=== PATIENT | male | born 1955 | race Caucasian/White ===

== ENCOUNTER 2017-06-03 21:08 | Emergency (ER) | payer OTHER ==
[~2017-06-03 21:08] MED LIST: BLOOD PRESSURE MED; HYDR-3533 PO; NAPR500 PO; NITR.3 SL
[2017-06-03 21:10] VITALS: BP 144/77; PULSE 69; RESP 16; TEMP 98.6; O2SAT 96
[2017-06-03] MEDS ORDERED: NITR1SUB2 SL (22:45)
[2017-06-03] MEDS ORDERED: METO1TAB42 PO (22:45)
[2017-06-03] MEDS ORDERED: ISOS10TA3 PO (22:45)
[2017-06-03] MEDS ORDERED: BACIOIN6 RIGHT EYE (22:51)
--- NOTE | 2017-06-03 22:53 | PD ---
HPI Chief Complaint: Eye Problems/Injury Time Seen by Provider: 22:27 Travel History International Travel<30 days: No Contact w/Intl Traveler<30days: No Traveled to known affect area: No History of Present Illness HPI PATIENT STATES THAT HE ACCIDENTALLY SPLASHED HIS RIGHT EYE WITH POTASSIUM HYDROXIDE "LYE SOAP" AND THAT HE HAS DONE THIS MULTIPLE TIMES AND JUST NEEDS AN ANTIBIOTIC....PATIENT STATES TAHT HE IRRIGATED EYE SAME DAY FOR ABOUT 30MIN, HE COMES IN TODAY BECAUSE HE DEVELOPED RT EYE PAIN AND REDNESS. DENIES ANY DISCHARGE, STATES HE'S ABLE TO SEE THROUGH RIGHT EYE WELL AND DOESN'T WANT TO WAIT FOR AN EYE DOCTOR TO COME TO ER...SIGNIFICANT OTHER AT BEDSIDE. PFSH Past Medical History Hx Anticoagulant Therapy: Yes (ASA) Arthritis: No Asthma: No Autoimmune Disease: No Blood Disorders: No Heart Rhythm Problems: Yes Cancer: No Cardiac Catheterization: Yes Cardiovascular Problems: Yes (CAD; AK WITH STENTS ) High Cholesterol: No Chemotherapy: No Chest Pain: Yes Congestive Heart Failure: No COPD: No Cerebrovascular Accident: No Diabetes: No Diminished Hearing: No Endocrine: No GERD: No Glaucoma: No Genitourinary: No Headaches: No Hepatitis: No Hiatal Hernia: Yes (IT HEALED ITSELF) Hypertension: No Immune Disorder: No Kidney Stones: No Musculoskeletal: No Neurologic: No Psychiatric: No Respiratory: Yes (PLEURISY) Myocardial Infarction: Yes (SEVERAL PER PATIENT) Radiation Therapy: No Renal Failure: No Seizures: No Sickle Cell Disease: No Sleep Apnea: No Thyroid Disease: No Ulcer: No Past Surgical History Abdominal Surgery: No AICD: No Body Medical Devices: CARDIAC STENTS Cardiac Surgery: Yes (STENTS) Coronary Stent: Yes (X7) Ear Surgery: No Endocrine Surgery: No Eye Surgery: No Genitourinary Surgery: No Gynecologic Surgery: No Joint Replacement: No Oral Surgery: No Pacemaker: No Thoracic Surgery: No Other Surgery: Yes Social History Alcohol Use: No Tobacco Use: No Substance Use: No Allergies-Medications (Allergen,Severity, Reaction): Coded Allergies: sulfamethoxazole (Unverified Allergy, Mild, SKIN BLISTERS, 02/11/17) trimethoprim (Unverified Allergy, Mild, SKIN BLISTERS, 02/11/17) Reported Meds & Prescriptions Reported Meds & Active Scripts Active Lortab 5 mg/325 mg (Hydrocodone/Acetaminophen 5 mg/325 mg) 1 Tab 1 Tab PO Q4H PRN Naprosyn (Naproxen) 500 Mg Tab 500 Mg PO BID Reported [Blood Pressure Med] Nitrostat (Nitroglycerin) 0.3 Mg Subl 0.3 Mg SL PRN FOR CHEST PAIN Review of Systems Except as stated in HPI: all other systems reviewed are Neg General / Constitutional: No: Fever Eyes: Positive: Redness HENT: No: Headaches Cardiovascular: No: Chest Pain or Discomfort Respiratory: No: Shortness of Breath Gastrointestinal: No: Abdominal Pain Genitourinary: No: Dysuria Musculoskeletal: No: Pain Skin: No Rash Neurologic: No: Weakness Psychiatric: No: Depression Endocrine: No: Polydipsia Hematologic/Lymphatic: No: Easy Bruising Physical Exam Narrative GENERAL: SKIN: Warm and dry. HEAD: Atraumatic. Normocephalic. EYES: Pupils equal and round. No scleral icterus. RIGHT CONJUNCTIVA ERYTHEMATOUS , TEARING, CORNEA CLEAR, NO E/O UVEITIS, NO CORNEAL ULCER NOTED, WITH ( PROPARACAINE, UV LAMP AND FLOURESCEIN STRIP) ENT: No nasal bleeding or discharge. Mucous membranes pink and moist. NECK: Trachea midline. No JVD. CARDIOVASCULAR: Regular rate and rhythm. RESPIRATORY: No accessory muscle use. Clear to auscultation. Breath sounds equal bilaterally. GASTROINTESTINAL: Abdomen soft, non-tender, nondistended. Hepatic and splenic margins not palpable. MUSCULOSKELETAL: Extremities without clubbing, cyanosis, or edema. No obvious deformities. NEUROLOGICAL: Awake and alert. No obvious cranial nerve deficits. Motor grossly within normal limits. Five out of 5 muscle strength in the arms and legs. Normal speech. PSYCHIATRIC: Appropriate mood and affect; insight and judgment normal. Data Data Last Documented VS Vital Signs Date Time Temp Pulse Resp B/P (MAP) Pulse Ox O2 Delivery O2 Flow Rate FiO2 06/03/17 21:10 98.6 69 16 144/77 (99) 96 Room Air MDM Medical Decision Making Medical Screen Exam Complete: Yes Emergency Medical Condition: Yes Medical Record Reviewed: Yes Differential Diagnosis UVEITIS V CONJUNCTIVITIS V CORNEAL ULCER Narrative Course PATIENT STATES THAT HE HAD EXPOSURE TO "LYE SOAP" OVER 24 HRS AGO, STATES THAT HE IRRIGATED FOR 30MINUTES ON SAME DAY. PATIENT IS NOT WANTING TO STAY AROUND FOR AN RETENTION REPRESENTATIVE TO EVALUATE HIM, AND REFUSED TO SEE ONE HERE IN ER. PATIENT ADVISED OF POSSIBILITY OF LOSING EYE SIGHT AND PATIENT DID NOT SEEM CONCERNED. Diagnosis Primary Impression: Conjunctival abrasion Qualified Codes: S05.01XA - Injury of conjunctiva and corneal abrasion without foreign body, right eye, initial encounter Referrals: Bernice Eastman MD FOR FURTHER EVALUATION OF YOUR RIGHT EYE EXPOSURE Patient Instructions: Conjunctivitis (ED), General Instructions Scripts Bacitracin Opth Oint (Bacitracin Opth Oint) 500 Unit/Gm Oint 1 APPLIC RIGHT EYE TID for Infection, #1 TUBE 0 Refills Prov: Everton Rasmussen MD 06/03/17 Disposition: 01 DISCHARGE HOME Condition: Stable Everton Rasmussen MD Jun 03, 2017 22:53
[2017-06-03] MEDS ORDERED: SUBO8MIS SL (23:07)
== END 2017-06-03 23:25 | disposition home or self-care (01) ==
LOC: NEPD 21:08
DX: S05.01XA Injury of conjunctiva and corneal abrasion without foreign body, right eye, initial encounter (principal); T54.3X1A Toxic effect of corrosive alkalis and alkali-like substances, accidental (unintentional), initial encounter; I25.10 Atherosclerotic heart disease of native coronary artery without angina pectoris; I25.2 Old myocardial infarction; Z88.2 Allergy status to sulfonamides; Z88.8 Allergy status to other drugs, medicaments and biological substances; X58.XXXA Exposure to other specified factors, initial encounter
CPT/HCPCS: 99283

== ENCOUNTER 2017-11-07 09:32 | Inpatient (IN) | payer OTHER ==
[~2017-11-07] VITALS: Ht 175.3 cm; Wt 77.0 kg
[2017-11-07] VITALS (8 sets, daily range): BP systolic 116–162; BP diastolic 67–81; PULSE 72–85; RESP 18–19; TEMP 97.8–98.6; O2SAT 95–97
[~2017-11-07 09:32] MED LIST changes: +BACIOIN6 RIGHT EYE; -BLOOD PRESSURE MED; -HYDR-3533 PO; +ISOS10TA3 PO; +METO1TAB42 PO; -NAPR500 PO; -NITR.3 SL; +NITR1SUB2 SL; +SUBO8MIS SL
[2017-11-07] MEDS ORDERED: ASPI-183 PO (09:54)
[2017-11-07] MEDS ORDERED: BISACODYL 10 MG SUPP RECTAL PRN (10:30)
[2017-11-07] MEDS ORDERED: SODIUM CHLORIDE 0.9% FLUSH 10 ML FLUSH IV FLUSH PRN (10:30)
[2017-11-07] MEDS ORDERED: ONDANSETRON HCL 4 MG/2 ML VIAL IVP PRN (10:30)
[2017-11-07] MEDS ORDERED: MAGNESIUM HYDROXIDE SUSP 30 ML CUP PO PRN (10:30)
[2017-11-07] MEDS ORDERED: LACTULOSE SYRUP 20 GM/30 ML CUP PO PRN (10:30)
[2017-11-07] MEDS ORDERED: SENNOSIDES 8.6 MG TAB PO PRN (10:30)
[2017-11-07] MEDS ORDERED: ACETAMINOPHEN 325 MG TAB PO PRN (10:30)
[2017-11-07] MEDS ORDERED: NALOXONE HCL 0.4 MG/ML AMP IV PUSH PRN (10:30)
[2017-11-07 10:40] LABS: AUTOMATED NEUTROPHIL # 3.9 TH/MM3 (1.8-7.7); BASOPHIL % 0.2 % (0.0-2.0); EOSINOPHIL # 0.1 TH/MM3 (0-0.4); EOSINOPHIL % 1.2 % (0.0-4.0); HEMATOCRIT 41.6 % (39.0-51.0); HEMOGLOBIN 14.3 GM/DL (13.0-17.0); LYMPH % 19.3 % (9.0-44.0); LYMPHOCYTE # 1.1 TH/MM3 (1.0-4.8); MEAN CELL VOLUME 84.6 FL (80.0-100.0); MEAN CORPUSCULAR HGB CONC 34.3 % (32.0-36.0); MEAN PLATELET VOLUME 8.7 FL (7.0-11.0); MONO % 9.2 % (0.0-8.0); MONOCYTE # 0.5 TH/MM3 (0-0.9); NEUT % 70.1 % (16.0-70.0); PLATELET COUNT 102 TH/MM3 (150-450); RED BLOOD COUNT 4.92 MIL/MM3 (4.50-5.90); RED CELL DISTRIBUTION WIDTH 14.5 % (11.6-17.2); WHITE BLOOD COUNT 5.5 TH/MM3 (4.0-11.0)
--- NOTE | 2017-11-07 10:41 | RADRPT ---
EXAM DATE/TIME: 11/07/2017 10:14 [facility] COMPARISON: No previous studies available for comparison. INDICATIONS : Evaluate for pneumonia, pneumothorax, or communicable disease. Pre-op detached retina. MEDICAL HISTORY : Cardiovascular disease. coronary stents, hiatal hernia, pleurisy. SURGICAL HISTORY : None. ENCOUNTER: Initial ACUITY: 1 day PAIN SCORE: 0/10 LOCATION: Bilateral chest FINDINGS: A single view of the chest demonstrates the lungs to be symmetrically aerated without evidence of mas s, infiltrate or effusion. Mild basilar atelectasis. The cardiomediastinal contours are unremarkable. Osseous structures are intact. CONCLUSION: 1. Mild basilar atelectasis. Tortuous aorta. No effusion or pneumothorax. Deyvi Brown MD on November 07, 2017 at 10:38 Board Certified Radiologist. This report was verified electronically.
[2017-11-07 10:56] LABS: PROTHROMBIN TIME - PATIENT 10.1 SEC (9.8-11.6)
[2017-11-07 10:58] LABS: ALBUMIN 3.8 GM/DL (3.4-5.0); AST (GOT) 13 U/L (15-37); BLOOD UREA NITROGEN 18 MG/DL (7-18); CALCIUM 8.7 MG/DL (8.5-10.1); CHLORIDE 105 MEQ/L (98-107); CREATININE 0.89 MG/DL (0.60-1.30); GLOMERULAR FILTRATION RATE 87 ML/MIN (>89); GLUCOSE,RANDOM 127 MG/DL (74-106); SODIUM (NA) 139 MEQ/L (136-145)
[2017-11-07 10:59] LABS: ALT (GPT) 20 U/L (12-78)
[2017-11-07] MEDS ORDERED: PILL SPLITTER OTHER PRN (11:00)
[2017-11-07 11:01] LABS: ALKALINE PHOSPHATASE 72 U/L (45-117); TOTAL BILIRUBIN ADULT 0.4 MG/DL (0.2-1.0); TOTAL PROTEIN 6.7 GM/DL (6.4-8.2)
--- NOTE | 2017-11-07 11:50 | PD ---
HPI Chief Complaint: Eye Problems/Injury Time Seen by Provider: 10:04 Travel History International Travel<30 days: No Contact w/Intl Traveler<30days: No Traveled to known affect area: No History of Present Illness HPI 62-year-old male with a history of coronary artery disease, pleurisy, who presents here at the request of his retinal surgeon for admission and cardiology clearance. The patient has a detached left retina that happened 3-4 weeks ago. The patient needs emergent surgery to repair his retina. When the retinal surgeon, Dr. Parsons, spoke with the anesthesiologist, they requested he be medically cleared by cardiology given his extensive cardiac history. The patient does have stable angina and takes daily nitroglycerin for this. He denies any chest pain, chest pressure. Patient has complete loss of vision in his left eye. There are no other complaints the time of examination. PFSH Past Medical History Hx Anticoagulant Therapy: Yes (ASA) Arthritis: No Asthma: No Autoimmune Disease: No Blood Disorders: No Heart Rhythm Problems: Yes Cancer: No Cardiac Catheterization: Yes Cardiovascular Problems: Yes High Cholesterol: No Chemotherapy: No Chest Pain: Yes Congestive Heart Failure: No COPD: No Cerebrovascular Accident: No Diabetes: No Diminished Hearing: No Endocrine: No GERD: No Glaucoma: No Genitourinary: No Headaches: No Hepatitis: No Hiatal Hernia: Yes (IT HEALED ITSELF) Hypertension: No Immune Disorder: No Kidney Stones: No Musculoskeletal: No Neurologic: No Psychiatric: No Respiratory: Yes (PLEURSY) Immunizations Current: Yes Myocardial Infarction: Yes (SEVERAL PER PATIENT) Radiation Therapy: No Renal Failure: No Seizures: No Sickle Cell Disease: No Sleep Apnea: No Thyroid Disease: No Ulcer: No ?: Not Past Surgical History Abdominal Surgery: No AICD: No Body Medical Devices: CARDIAC STENTS Cardiac Surgery: Yes (STENTS) Coronary Stent: Yes (X7) Ear Surgery: No Endocrine Surgery: No Eye Surgery: No Genitourinary Surgery: No Gynecologic Surgery: No Joint Replacement: No Oral Surgery: No Pacemaker: No Thoracic Surgery: No Other Surgery: Yes Social History Alcohol Use: No Tobacco Use: No Substance Use: No Allergies-Medications (Allergen,Severity, Reaction): Coded Allergies: sulfamethoxazole (Unverified Allergy, Mild, SKIN BLISTERS, 02/11/17) trimethoprim (Unverified Allergy, Mild, SKIN BLISTERS, 02/11/17) Uncoded Allergies: STEROIDS (Adverse Reaction, Unknown, 06/03/17) Reported Meds & Prescriptions Reported Meds & Active Scripts Active Reported Aspirin 325 Mg Tab 325 Mg PO DAILY Suboxone Sublingual Film (Buprenorphine-Naloxone Sublingual Film) 8-2 Mg Film 1 Film SL Unique ID number required: Nitroglycerin SL (Nitroglycerin) 0.3 Mg Subl Mg SL DIRECTED PRN ONE TABLET UNDER THE TONGUE NEEDED FOR CHEST PAIN, MAY REPEAT EVERY FIVE MINUTES FOR A TOTAL OF 3 DOSES OR CALL 911 IF NO RELIEF Metoprolol Succinate ER 24 HR (Metoprolol Succinate) 25 Mg Tab 12.5 Mg PO DAILY Isosorbide Mononitrate 10 Mg Tab Mg PO BID Take 2 doses 7 hours apart. 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 SKIN: Focused skin assessment warm/dry. HEAD: Atraumatic. Normocephalic. EYES: Left pupil dilated. Right pupil reactive to light. Patient has had the pupil dilated by his eye surgeon.. No scleral icterus. No injection or drainage. ENT: No nasal bleeding or discharge. Mucous membranes pink and moist. NECK: Trachea midline. Supple. CARDIOVASCULAR: Regular rate and rhythm. No murmur appreciated. RESPIRATORY: No accessory muscle use. Clear to auscultation. Breath sounds equal bilaterally. GASTROINTESTINAL: Abdomen soft, non-tender, nondistended. Hepatic and splenic margins not palpable. MUSCULOSKELETAL: No obvious deformities. No clubbing. No cyanosis. No edema. NEUROLOGICAL: Awake and alert. No obvious cranial nerve deficits. Motor grossly within normal limits. Normal speech. PSYCHIATRIC: Appropriate mood and affect; insight and judgment normal. Data Data Last Documented VS Vital Signs Date Time Temp Pulse Resp B/P (MAP) Pulse Ox O2 Delivery O2 Flow Rate FiO2 11/07/17 09:35 98.6 80 18 162/81 (108) 97 Orders Orders Electrocardiogram (11/07/17 10:05) Complete Blood Count With Diff (11/07/17 10:05) Comprehensive Metabolic Panel (11/07/17 10:05) Prothrombin Time / Inr (Pt) (11/07/17 10:05) Act Partial Throm Time (Ptt) (11/07/17 10:05) Chest, Single Ap (11/07/17 10:05) Iv Access Insert/Monitor (11/07/17 10:05) Ecg Monitoring (11/07/17 10:05) Oximetry (11/07/17 10:05) Type And Screen (11/07/17 10:) Admit To Inpatient (11/07/17 ) Vital Signs (Adult) Q4H (11/07/17 10:28) Activity Oob With Assistance (11/07/17 10:28) Contract Administrator / Telemetry .CONTINUOUS (11/07/17 10:28) Intake + Output BRANDO.QSHIFT (11/07/17 10:28) Diet Heart Healthy (11/07/17 Lunch) Sodium Chloride 0.9% Flush (Ns Flush) (11/07/17 10:30) Sodium Chloride 0.9% Flush (Ns Flush) (11/07/17 21:00) Acetaminophen (Tylenol) (11/07/17 10:30) Ondansetron Inj (Zofran Inj) (11/07/17 10:30) Comprehensive Metabolic Panel (11/08/17 06:00) Complete Blood Count With Diff (11/08/17 06:00) Resp Oxygen Allen C Titrat 1-4 L (11/07/17 ) Pt Request For Service (11/07/17 10:28) Ot Request For Service (11/07/17 10:28) Case Management Consult (11/07/17 10:28) Enoxaparin Inj (Lovenox Inj) (11/07/17 12:00) Scd Bilateral/Knee High BRANDO.BID (11/07/17 10:28) Servando Bilateral/Knee High BRANDO.QSHIFT (11/07/17 10:28) Naloxone Inj (Narcan Inj) (11/07/17 10:30) Docusate Sodium-Senna (Oriana-Colace) (11/07/17 21:00) Magnesium Hydroxide Liq (Milk Of Magnesi (11/07/17 10:30) Sennosides (Senokot) (11/07/17 10:30) Bisacodyl Supp (Dulcolax Supp) (11/07/17 10:30) Lactulose Liq (Lactulose Liq) (11/07/17 10:30) Inpatient Certification (11/07/17 ) Consult Cardiology (11/07/17 ) Consult Pulmonology (11/07/17 ) Aspirin (Aspirin) (11/08/17 09:00) Metoprolol Succinate Er (Toprol Xl) (11/08/17 09:00) Pill Splitter (Pill Splitter) (11/07/17 11:00) Consult Ophthalmology (11/07/17 ) Admit Order (Ed Use Only) (11/07/17 11:02) Labs Laboratory Tests Test 11/07/17 10:13 White Blood Count 5.5 TH/MM3 Red Blood Count 4.92 MIL/MM3 Hemoglobin 14.3 GM/DL Hematocrit 41.6 % Mean Corpuscular Volume 84.6 FL Mean Corpuscular Hemoglobin 29.0 PG Mean Corpuscular Hemoglobin Concent 34.3 % Red Cell Distribution Width 14.5 % Platelet Count 102 TH/MM3 Mean Platelet Volume 8.7 FL Neutrophils (%) (Auto) 70.1 % Lymphocytes (%) (Auto) 19.3 % Monocytes (%) (Auto) 9.2 % Eosinophils (%) (Auto) 1.2 % Basophils (%) (Auto) 0.2 % Neutrophils # (Auto) 3.9 TH/MM3 Lymphocytes # (Auto) 1.1 TH/MM3 Monocytes # (Auto) 0.5 TH/MM3 Eosinophils # (Auto) 0.1 TH/MM3 Basophils # (Auto) 0.0 TH/MM3 CBC Comment DIFF FINAL Differential Comment Prothrombin Time 10.1 SEC Prothromb Time International Ratio 1.0 RATIO Activated Partial Thromboplast Time 22.9 SEC Blood Urea Nitrogen 18 MG/DL Creatinine 0.89 MG/DL Random Glucose 127 MG/DL Total Protein 6.7 GM/DL Albumin 3.8 GM/DL Calcium Level 8.7 MG/DL Alkaline Phosphatase 72 U/L Aspartate Amino Transf (AST/SGOT) 13 U/L Alanine Aminotransferase (ALT/SGPT) 20 U/L Total Bilirubin 0.4 MG/DL Sodium Level 139 MEQ/L Potassium Level 4.3 MEQ/L Chloride Level 105 MEQ/L Carbon Dioxide Level 27.0 MEQ/L Anion Gap 7 MEQ/L Estimat Glomerular Filtration Rate 87 ML/MIN MDM Medical Decision Making Medical Screen Exam Complete: Yes Emergency Medical Condition: Yes Differential Diagnosis Unstable angina versus stable angina versus left eye retinal detachment. Narrative Course 62-year-old male with a history of coronary artery disease, stable angina, pleurisy, who presents at the request of his eye surgeon for admission and medical clearance by cardiology. The patient needs emergent retinal surgery. The patient is chest pain-free at this time. Preop labs have been ordered. Dr. Salomon Virgen, on-call for cardiology, has come to see the patient and will make recommendations for surgery. The case was discussed with [facility], [facility], who will admit the patient to her service. Diagnosis Primary Impression: Detached retina, left Additional Impressions: Coronary artery disease Stable angina History of pleurisy Admitting Information Admitting Physician Requests: Admit Jordan Dawn MD November 07, 2017 11:50
[2017-11-07] MEDS ORDERED: MORPHINE SULFATE 2 MG/ML SYRINGE SQ PRN (12:00)
[2017-11-07] MEDS: ENOXAPARIN SODIUM 40 MG/0.4 ML SYRINGE SQ SCH (12:00)
--- NOTE | 2017-11-07 12:36 | HHI.HP ---
HPI Service [facility] Primary Care Physician No Primary Care Physician Admission Diagnosis left retinal detachment, cad, pleurysy, Diagnoses: Chief Complaint: Sent by his pitch filler Dr. Parsons Travel History International Travel<30 Days: No Contact w/Intl Traveler <30 Da: No Traveled to Known Affected Are: No History of Present Illness The patient is a 62-year-old male with past medical history of coronary artery disease cardiac cath was 7 stents per patient, history of cardiac arrest in 2010 , pleurisy. Patient presented to the emergency room the request of his ophthalmology Dr. Parsons and also anesthesiologist who recommended admission and cardiology and pulmonology clearance for retinal detachment surgery. Patient has detached left retina that happened 3-4 weeks ago. Patient needs emergent surgery to repair his retina. Patient says he has stable angina and he takes daily nitroglycerin. At this time he does not appear in distress. He is however complaining of brief intermittent left eye pain, does not have any pain at this time. He denies any chest pain or pressure. No lightheadedness, palpitations, shortness of breath, diaphoresis, nausea. He is saturating well on room air. There is no cough. No fever, chills, no nausea or vomiting. Review of Systems Except as stated in HPI: all other systems reviewed are Neg Past Family Social History Past Medical History Coronary artery disease cardiac cath was 7 stents per patient, history of cardiac arrest in 2010, pleurisy Past Surgical History Cardiac catheterization, 7 stents placed Left knee surgery Reported Medications Reported Meds & Active Scripts Active Reported Aspirin 325 Mg Tab 325 Mg PO DAILY Suboxone Sublingual Film (Buprenorphine-Naloxone Sublingual Film) 8-2 Mg Film 1 Film SL Unique ID number required: Nitroglycerin SL (Nitroglycerin) 0.3 Mg Subl Mg SL DIRECTED PRN ONE TABLET UNDER THE TONGUE NEEDED FOR CHEST PAIN, MAY REPEAT EVERY FIVE MINUTES FOR A TOTAL OF 3 DOSES OR CALL 911 IF NO RELIEF Metoprolol Succinate ER 24 HR (Metoprolol Succinate) 25 Mg Tab 12.5 Mg PO DAILY Isosorbide Mononitrate 10 Mg Tab Mg PO BID Take 2 doses 7 hours apart. Allergies: Coded Allergies: sulfamethoxazole (Unverified Allergy, Mild, SKIN BLISTERS, 02/11/17) trimethoprim (Unverified Allergy, Mild, SKIN BLISTERS, 02/11/17) Uncoded Allergies: STEROIDS (Adverse Reaction, Unknown, 06/03/17) Family History His family is healthy lived to the age of 100. His mother has at the age of 90 of cancer. Social History Denies tobacco use or alcohol use. No illicit drug use. Physical Exam Vital Signs Vital Signs Date Time Temp Pulse Resp B/P (MAP) Pulse Ox O2 Delivery O2 Flow Rate FiO2 11/07/17 11:20 97 Room Air 11/07/17 11:18 97 21 11/07/17 09:35 98.6 80 18 162/81 (108) 97 Physical Exam GENERAL: This is a well-nourished, well-developed patient, appears anxious. SKIN: No rashes, ecchymoses or lesions. Cool and dry. HEAD: Atraumatic. Normocephalic. No temporal or scalp tenderness. EYES: Dilated left pupil. Decreased vision left eye. Extraocular motions intact. No scleral icterus. No injection or drainage. ENT: Nose without bleeding, purulent drainage or septal hematoma. Throat without erythema, tonsillar hypertrophy or exudate. Uvula midline. Airway patent. NECK: Trachea midline. No JVD or lymphadenopathy. Supple, nontender, no meningeal signs. CARDIOVASCULAR: Regular rate and rhythm without murmurs, gallops, or rubs. RESPIRATORY: Clear to auscultation. Breath sounds equal bilaterally. No wheezes , rales, or rhonchi. GASTROINTESTINAL: Abdomen soft, non-tender, nondistended. No hepato-splenomegaly , or palpable masses. No guarding. MUSCULOSKELETAL: Extremities without clubbing, cyanosis, or edema. No joint tenderness, effusion, or edema noted. No calf tenderness. Negative Homans sign bilaterally. NEUROLOGICAL: Awake and alert. Cranial nerves II through XII intact. Motor and sensory grossly within normal limits. Five out of 5 muscle strength in all muscle groups. Normal speech. Laboratory Laboratory Tests Test 11/07/17 10:13 White Blood Count 5.5 Red Blood Count 4.92 Hemoglobin 14.3 Hematocrit 41.6 Mean Corpuscular Volume 84.6 Mean Corpuscular Hemoglobin 29.0 Mean Corpuscular Hemoglobin Concent 34.3 Red Cell Distribution Width 14.5 Platelet Count 102 Mean Platelet Volume 8.7 Neutrophils (%) (Auto) 70.1 Lymphocytes (%) (Auto) 19.3 Monocytes (%) (Auto) 9.2 Eosinophils (%) (Auto) 1.2 Basophils (%) (Auto) 0.2 Neutrophils # (Auto) 3.9 Lymphocytes # (Auto) 1.1 Monocytes # (Auto) 0.5 Eosinophils # (Auto) 0.1 Basophils # (Auto) 0.0 CBC Comment DIFF FINAL Differential Comment Prothrombin Time 10.1 Prothromb Time International Ratio 1.0 Activated Partial Thromboplast Time 22.9 Blood Urea Nitrogen 18 Creatinine 0.89 Random Glucose 127 Total Protein 6.7 Albumin 3.8 Calcium Level 8.7 Alkaline Phosphatase 72 Aspartate Amino Transf (AST/SGOT) 13 Alanine Aminotransferase (ALT/SGPT) 20 Total Bilirubin 0.4 Sodium Level 139 Potassium Level 4.3 Chloride Level 105 Carbon Dioxide Level 27.0 Anion Gap 7 Estimat Glomerular Filtration Rate 87 Result Diagram: 11/07/17 1013 11/07/17 1013 Imaging Last Impressions Chest X-Ray 11/07/17 1005 Signed Impressions: Service Date/Time: Tuesday, November 07, 2017 10:14 - CONCLUSION: 1. Mild basilar atelectasis. Tortuous aorta. No effusion or pneumothorax. MD Rayshawn Mcclellani VTE Risk Assessment Caprini VTE Risk Assessment: Mod/High Risk (score >= 2) Caprini Risk Assessment Model Point Value = 1 Point Value = 2 Point Value = 3 Point Value = 5 Age 41-60 Minor surgery BMI > 25 kg/m2 Swollen legs Varicose veins or History of unexplained or recurrent spontaneous Oral contraceptives or hormone replacement Sepsis (< 1 month) Serious lung disease, including pneumonia (< 1 month) Abnormal pulmonary function Acute myocardial infarction Congestive heart failure (< 1 month) History of inflammatory bowel disease Medical patient at bed rest Age 61-74 Arthroscopic surgery Major open surgery (> 45 min) Laparoscopic surgery (> 45 min) Malignancy Confined to bed (> 72 hours) Immobilizing plaster cast Central venous access Age >= 75 History of VTE Family history of VTE Factor V Leiden Prothrombin [id number] Lupus anticoagulant Anticardiolipin antibodies Elevated serum homocysteine Heparin-induced thrombocytopenia Other congenital or acquired thrombophilia Stroke (< 1 month) Elective arthroplasty Hip, pelvis, or leg fracture Acute spinal cord injury (< 1 month) Prophylaxis Regimen Total Risk Factor Score Risk Level Prophylaxis Regimen 0-1 Low Early ambulation 2 Moderate Order ONE of the following: *Sequential Compression Device (SCD) *Heparin 5000 units SQ BID 3-4 Higher Order ONE of the following medications: *Heparin 5000 units SQ TID *Enoxaparin/Lovenox 40 mg SQ daily (WT < 150 kg, CrCl > 30 mL/min) *Enoxaparin/Lovenox 30 mg SQ daily (WT < 150 kg, CrCl > 10-29 mL/min) *Enoxaparin/Lovenox 30 mg SQ BID (WT < 150 kg, CrCl > 30 mL/min) AND/OR *Sequential Compression Device (SCD) 5 or more Highest Order ONE of the following medications: *Heparin 5000 units SQ TID (Preferred with Epidurals) *Enoxaparin/Lovenox 40 mg SQ daily (WT < 150 kg, CrCl > 30 mL/min) *Enoxaparin/Lovenox 30 mg SQ daily (WT < 150 kg, CrCl > 10-29 mL/min) *Enoxaparin/Lovenox 30 mg SQ BID (WT < 150 kg, CrCl > 30 mL/min) AND *Sequential Compression Device (SCD) Assessment and Plan Assessment and Plan 62-year-old male with a history of coronary artery disease and 7 stents placed, history of cardiac arrest 2010, angina, pleurisy was sent by his ophthalmology Dr. Parsons for admission and clearance by cardiology and pulmonology. patient has detached left retina 3-4 weeks ago and needs emergent surgery to repair his retina. Detached left retina Consult his ophthalmology Dr. Parsons. The patient needs emergent surgery to repair his retina. Patient with history of coronary artery disease was 7 stents placed, history of cardiac arrest 2010, angina or pleurisy. Dr. Parsons his ophthalmology Dr. the anesthesiologist requests pulmonology consult and also cardiology consult for clearance Restart home medications as appropriate Patient was seen by Dr. Virgen cardiology. Discussed with Dr. Virgen the patient is cleared from a cardiac standpoint for surgery. Pulmonology evaluation and clearance are pending Morphine 2 mg IV as needed for pain Patient also reports being anxious. Start Ativan 0.5 mg every 8 hours p.o. as needed for anxiety. DVT prophylaxis SCDs/teds/Lovenox Discussed Condition With Patient, family at bedside, Dr. Dawn ED physician, Dr. Virgen cardiology Physician Certification 2 Midnight Certification Type: Admission for Inpatient Services Order for Inpatient Services The services are ordered in accordance with Medicare regulations or non- Medicare payer requirements, as applicable. In the case of services not specified as inpatient-only, they are appropriately provided as inpatient services in accordance with the 2-midnight benchmark. Estimated LOS (days): 3 days is the estimated time the patient will need to remain in the hospital, assuming treatment plan goals are met and no additional complications. Post-Hospital Plan: Home Niurka Martin MD November 07, 2017 12:36
--- NOTE | 2017-11-07 12:50 | MB ---
cc: Salomon Virgen MD DATE: 11/07/2017 REASON FOR CONSULTATION: For preoperative clearance. HISTORY OF PRESENT ILLNESS: Ralph Guajardo is a 62-year-old man with known coronary artery disease who has a severe left eye retinal detachment needing surgery. The patient is known to have coronary artery disease. He has a history of multiple revascularization procedures. In the computer, I found records of 07/05/2010 where he had a catheterization we had a patent proximal LAD stent, the circumflex artery had severe disease, the right coronary artery had severe disease and was stented proximally and in the mid-segment with 3.0 x 18 mm Vision stents for each. The second catheterization procedure I found was 01/16/2011. The LAD was okay. By that time, the circumflex has been stented, but there was an in-stent restenosis treated with a 3.0 balloon. The proximal right coronary artery had a stenosis with clot that was treated with a 3.5 mm balloon. The best I can tell, this was his last catheterization procedure. He has chronic angina which he has had for 2 years. He states he only gets it if he does not take his medications. It sounds like he is on isosorbide mononitrate 10 mg b.i.d. That is his only antianginal medicine. He has metoprolol, but does not take it. He is on chronic narcotics for what he says is pleurisy which he has had for 20 years. He takes an aspirin daily. The pleurisy he has had for 20 years, nobody has been able to fix it. He manages despite taking pain medications. It is a knife-type jabbing pain in the left lower quadrant when he takes a deep breath. His angina sounds more typical; it is a substernal chest pressure. He only gets it if he gets upset or over-exerts himself, particularly if he does not take his medications. ALLERGIES: SULFA AND TRIMETHOPRIM. PAST MEDICAL HISTORY: Includes pleurisy, coronary artery disease. He has hyperlipidemia. He has also had chronic left bundle branch block. SOCIAL HISTORY: He smoked only for 1 year when he was 19. Denies substance abuse. Denies alcohol use. FAMILY HISTORY: Negative for heart disease. PHYSICAL EXAMINATION: GENERAL: Well-developed, well-nourished white male, in no acute distress. VITAL SIGNS: Charted. HEENT: Sclerae anicteric. No xanthelasma. NECK: No JVD. No bruits. CHEST: Clear to auscultation and percussion. No use of accessory muscles. HEART: Normal S1, S2. Regular rate and rhythm. Grade 2/6 systolic ejection murmur. No S3. ABDOMEN: Soft, nontender. EXTREMITIES: No clubbing, cyanosis or edema. Pulses are intact. EKG: Sinus rhythm, left bundle branch block. LABORATORY DATA: Hematocrit is 41.6, creatinine 0.92. Chest x-ray shows basilar atelectasis. ASSESSMENT AND PLAN: A 62-year-old man with chronic stable angina for 2 years, known coronary artery disease, has an acute severe problem with his left eye. In view of the fact that the angina is stable, not unstable, surgical risk is elevated, but not prohibitive. I am initiating Metoprolol 25 b.i.d. and an inch of nitro paste q.6 hours. I am clearing him for surgery. The anesthesiologist needs to use the best technique they can to minimize ischemia. I have ordered a 2-D echo to assess LV function. MD GABRIEL Monge/DEEPIT , 12:09 PM , 12:49 PM
[2017-11-07] MEDS: METOPROLOL TARTRATE 25 MG TAB PO SCH ×2 (13:00→19:45)
[2017-11-07] MEDS: NITROGLYCERIN 2% OINT 1 GM PACKET TOPICAL SCH ×2 (13:01→19:42)
[2017-11-07] MEDS: DOCUSATE SODIUM 50 MG/SENNA 8.6 MG TAB PO SCH (19:47)
[2017-11-07] MEDS: ACETAMINOPHEN/HYDROcodone 325 MG/10 MG TAB PO PRN (20:27)
[2017-11-07] MEDS: SODIUM CHLORIDE 0.9% FLUSH 10 ML FLUSH IV FLUSH SCH (23:19)
[2017-11-08] VITALS (7 sets, daily range): BP systolic 123–148; BP diastolic 70–85; PULSE 56–76; RESP 16–18; TEMP 97.3–98.2; O2SAT 95–99
[2017-11-08] MEDS: NITROGLYCERIN 2% OINT 1 GM PACKET TOPICAL SCH ×3 (04:15→21:21)
[2017-11-08] MEDS: ACETAMINOPHEN/HYDROcodone 325 MG/10 MG TAB PO PRN ×3 (04:15→21:23)
[2017-11-08 04:48] LABS: AUTOMATED NEUTROPHIL # 3.3 TH/MM3 (1.8-7.7); BASOPHIL % 0.3 % (0.0-2.0); EOSINOPHIL # 0.1 TH/MM3 (0-0.4); EOSINOPHIL % 2.1 % (0.0-4.0); HEMATOCRIT 41.9 % (39.0-51.0); HEMOGLOBIN 14.6 GM/DL (13.0-17.0); LYMPH % 28.8 % (9.0-44.0); LYMPHOCYTE # 1.7 TH/MM3 (1.0-4.8); MEAN CELL VOLUME 83.7 FL (80.0-100.0); MEAN CORPUSCULAR HGB CONC 34.7 % (32.0-36.0); MEAN PLATELET VOLUME 8.9 FL (7.0-11.0); MONO % 11.6 % (0.0-8.0); MONOCYTE # 0.7 TH/MM3 (0-0.9); NEUT % 57.2 % (16.0-70.0); PLATELET COUNT 113 TH/MM3 (150-450); RED BLOOD COUNT 5.01 MIL/MM3 (4.50-5.90); RED CELL DISTRIBUTION WIDTH 14.5 % (11.6-17.2); WHITE BLOOD COUNT 5.8 TH/MM3 (4.0-11.0)
[2017-11-08 05:10] LABS: ALBUMIN 3.6 GM/DL (3.4-5.0); AST (GOT) 13 U/L (15-37); BICARBONATE 27.3 MEQ/L (21.0-32.0); BLOOD UREA NITROGEN 14 MG/DL (7-18); CALCIUM 8.4 MG/DL (8.5-10.1); CHLORIDE 107 MEQ/L (98-107); CREATININE 0.81 MG/DL (0.60-1.30); GLOMERULAR FILTRATION RATE 97 ML/MIN (>89); GLUCOSE,RANDOM 87 MG/DL (74-106); SODIUM (NA) 143 MEQ/L (136-145)
[2017-11-08 05:15] LABS: ALKALINE PHOSPHATASE 70 U/L (45-117); ALT (GPT) 19 U/L (12-78); TOTAL BILIRUBIN ADULT 0.3 MG/DL (0.2-1.0); TOTAL PROTEIN 6.8 GM/DL (6.4-8.2)
--- NOTE | 2017-11-08 08:17 | EKG ---
Date Performed: 11/07/2017 Time Performed: 10:10:54 PTAGE: 62 years EKG: Sinus rhythm MARKED LEFT AXIS DEVIATION LEFT BUNDLE BRANCH BLOCK ABNORMAL ECG PREVIOUS TRACING : 12/29/2015 23.26 DOCTOR: Sheri Burdick Interpretating Date/Time 11/08/2017 08:15:49
[2017-11-08] MEDS ORDERED: METOPROLOL SUCCINATE 25 MG EXTENDED RELEASE TAB PO SCH (09:00)
[2017-11-08] MEDS: METOPROLOL TARTRATE 25 MG TAB PO SCH ×2 (09:57→21:21)
[2017-11-08] MEDS: ASPIRIN 325 MG TAB PO SCH (09:57)
[2017-11-08] MEDS: DOCUSATE SODIUM 50 MG/SENNA 8.6 MG TAB PO SCH ×2 (09:57→21:21)
[2017-11-08] MEDS: SODIUM CHLORIDE 0.9% FLUSH 10 ML FLUSH IV FLUSH SCH ×2 (09:58→21:21)
[2017-11-08] MEDS: LORazepam 0.5 MG TAB PO PRN (10:01)
--- NOTE | 2017-11-08 14:31 | HHI.PR ---
Subjective Remarks awake and alert aseen with fiancee at bedside very active lifestyle no chornic 02 use no leg swelling states history of pleurisy in the past after a procedure Objective Vitals Vital Signs Date Time Temp Pulse Resp B/P (MAP) Pulse Ox O2 Delivery O2 Flow Rate FiO2 11/08/17 12:00 97.9 71 18 148/85 (106) 99 11/08/17 10:06 21 11/08/17 08:00 97.3 61 16 138/75 (96) 98 11/08/17 04:00 98.0 65 17 123/77 (92) 97 11/08/17 00:00 98.1 74 18 133/70 (91) 96 11/07/17 23:52 72 11/07/17 20:00 97.8 85 18 143/67 (92) 97 11/07/17 19:52 81 11/07/17 16:00 97.8 83 19 123/69 (87) 95 I/O 11/07/17 11/07/17 11/07/17 11/08/17 11/08/17 11/08/17 07:00 15:00 23:00 07:00 15:00 23:00 Intake Total 480 ml 240 ml Balance 480 ml 240 ml Intake Oral 480 ml 240 ml # Voids 1 2 Result Diagram: 11/08/17 0316 11/08/17 0316 Imaging Last Impressions Chest X-Ray 11/07/17 1005 Signed Impressions: Service Date/Time: Tuesday, November 07, 2017 10:14 - CONCLUSION: 1. Mild basilar atelectasis. Tortuous aorta. No effusion or pneumothorax. Deyvi Brown MD Objective Remarks awake and alert no acute distress left eye- eye patch in place no bruit lungs- no rales regular rhythm,a bdomen soft, good bowel sounds extrmeities no edema neuro exam- non focal A/P Assessment and Plan 62-year-old male with a history of coronary artery disease and 7 stents placed, history of cardiac arrest 2010, angina, pleurisy was sent by his ophthalmology Dr. Parsons for admission and clearance by cardiology and pulmonology. patient has detached left retina 3-4 weeks ago and needs emergent surgery to repair his retina. Detached left retina Consult his ophthalmology Dr. Parsons. The patient needs emergent surgery to repair his retina. Patient with history of coronary artery disease was 7 stents placed, history of cardiac arrest 2010, angina or pleurisy. 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 Ativan 0.5 mg every 8 hours p.o. as needed for anxiety. DVT prophylaxis SCDs/teds/Lovenox d/w him and Ruben Au MD November 08, 2017 14:31
--- NOTE | 2017-11-08 15:12 | PD.CARD.PN ---
Subjective Subjective Remarks Nitropaste has helped but he can tell when he reaches end of 8 hour interval. Objective Medications Current Medications Medications (Trade) Dose Ordered Sig/Zelalem Route Start Time Stop Time Status Last Admin (NS Flush) 2 ml UNSCH PRN IV FLUSH 11/07/17 10:30 (NS Flush) 2 ml BID IV FLUSH 11/07/17 21:00 11/08/17 09:58 (Tylenol) 650 mg Q4H PRN PO 11/07/17 10:30 (Zofran Inj) 4 mg Q6H PRN IVP 11/07/17 10:30 (Lovenox Inj) 40 mg Q24H SQ 11/07/17 12:00 (Narcan Inj) 0.4 mg UNSCH PRN IV PUSH 11/07/17 10:30 (Oriana-Colace) 1 tab BID PO 11/07/17 21:00 11/08/17 09:57 (Milk Of Magnesia Liq) 30 ml Q12H PRN PO 11/07/17 10:30 (Senokot) 17.2 mg Q12H PRN PO 11/07/17 10:30 (Dulcolax Supp) 10 mg DAILY PRN RECTAL 11/07/17 10:30 (Lactulose Liq) 30 ml DAILY PRN PO 11/07/17 10:30 (Aspirin) 325 mg DAILY PO 11/08/17 09:00 11/08/17 09:57 (Pill Splitter) 1 ea UNSCH PRN OTHER 11/07/17 11:00 (Ativan) 0.5 mg Q8H PRN PO 11/07/17 12:00 11/08/17 10:01 (Lopressor) 25 mg Q12HR PO 11/07/17 13:00 11/08/17 09:57 (Nitroglycerin 2% Oint) 1 inch Q8HR TOPICAL 11/07/17 14:00 11/08/17 04:15 (Morphine Inj) 2 mg Q4H PRN IV 11/07/17 20:30 ([place]intstone 5-325 Mg) 1 tab Q4H PRN PO 11/07/17 19:45 ([place]stone 10-325 Mg) 1 tab Q4H PRN PO 11/07/17 19:45 11/08/17 10:01 Vital Signs / I&O Vital Signs Date Time Temp Pulse Resp B/P (MAP) Pulse Ox O2 Delivery O2 Flow Rate FiO2 11/08/17 12:00 97.9 71 18 148/85 (106) 99 11/08/17 10:06 21 11/08/17 08:00 97.3 61 16 138/75 (96) 98 11/08/17 04:00 98.0 65 17 123/77 (92) 97 11/08/17 00:00 98.1 74 18 133/70 (91) 96 11/07/17 23:52 72 11/07/17 20:00 97.8 85 18 143/67 (92) 97 11/07/17 19:52 81 11/07/17 16:00 97.8 83 19 123/69 (87) 95 I/O 11/07/17 11/07/17 11/07/17 11/08/17 11/08/17 11/08/17 07:00 15:00 23:00 07:00 15:00 23:00 Intake Total 480 ml 240 ml Balance 480 ml 240 ml Intake Oral 480 ml 240 ml # Voids 1 2 Physical Exam Alert Chest Clear CV S1S2 RRR no edema Laboratory Laboratory Tests Test 11/08/17 03:16 White Blood Count 5.8 TH/MM3 Red Blood Count 5.01 MIL/MM3 Hemoglobin 14.6 GM/DL Hematocrit 41.9 % Mean Corpuscular Volume 83.7 FL Mean Corpuscular Hemoglobin 29.0 PG Mean Corpuscular Hemoglobin Concent 34.7 % Red Cell Distribution Width 14.5 % Platelet Count 113 TH/MM3 Mean Platelet Volume 8.9 FL Neutrophils (%) (Auto) 57.2 % Lymphocytes (%) (Auto) 28.8 % Monocytes (%) (Auto) 11.6 % Eosinophils (%) (Auto) 2.1 % Basophils (%) (Auto) 0.3 % Neutrophils # (Auto) 3.3 TH/MM3 Lymphocytes # (Auto) 1.7 TH/MM3 Monocytes # (Auto) 0.7 TH/MM3 Eosinophils # (Auto) 0.1 TH/MM3 Basophils # (Auto) 0.0 TH/MM3 CBC Comment DIFF FINAL Differential Comment Blood Urea Nitrogen 14 MG/DL Creatinine 0.81 MG/DL Random Glucose 87 MG/DL Total Protein 6.8 GM/DL Albumin 3.6 GM/DL Calcium Level 8.4 MG/DL Alkaline Phosphatase 70 U/L Aspartate Amino Transf (AST/SGOT) 13 U/L Alanine Aminotransferase (ALT/SGPT) 19 U/L Total Bilirubin 0.3 MG/DL Sodium Level 143 MEQ/L Potassium Level 3.6 MEQ/L Chloride Level 107 MEQ/L Carbon Dioxide Level 27.3 MEQ/L Anion Gap 9 MEQ/L Estimat Glomerular Filtration Rate 97 ML/MIN Imaging Last 48 hours Impressions Chest X-Ray 11/07/17 1005 Signed Impressions: Service Date/Time: Tuesday, November 07, 2017 10:14 - CONCLUSION: 1. Mild basilar atelectasis. Tortuous aorta. No effusion or pneumothorax. Deyvi Brown MD Assessment and Plan Problem List: (1) History of pleurisy ICD Codes: Z87.09 - Personal history of other diseases of the respiratory system Status: Acute Plan: Chronic (2) Coronary artery disease ICD Codes: I25.10 - Atherosclerotic heart disease of [place] coronary artery without angina pectoris Status: Acute (3) Stable angina ICD Codes: I20.8 - Other forms of angina pectoris Status: Acute Plan: Nitropaste changed to q6h. After surgery he might need cath/ revasc. Salomon Virgen MD November 08, 2017 15:12
[2017-11-08] MEDS: ENOXAPARIN SODIUM 40 MG/0.4 ML SYRINGE SQ SCH (15:33)
--- NOTE | 2017-11-08 17:48 | ECHRPT ---
Indication: Atherosclerotic heart disease of [place] coronary artery with unstable angina pectoris CONCLUSIONS The left ventricular systolic function is normal with an estimated ejection fraction of 55%. Wall thickness is measured at the upper limits of normal. Normal left ventricular size. There is mild to moderate tricuspid valve regurgitation. The estimated pulmonary arterial pressure is 43 mmHg. BP: 123 / 77 HR: 65 Rhythm: MEASUREMENTS (Male / Female) Normal Values Technical Quality: 2D ECHO LV Diastolic Diameter PLAX 4.5 cm 4.2 - 5.9 / 3.9 - 5.3 cm LV Systolic Diameter PLAX 3.4 cm IVS Diastolic Thickness 1.2 cm 0.6 - 1.0 / 0.6 - 0.9 cm LVPW Diastolic Thickness 1.2 cm 0.6 - 1.0 / 0.6 - 0.9 cm LV Relative Wall Thickness 0.5 LVOT Diameter 2.3 cm M-MODE Aortic Root Diameter MM 3.3 cm LA Systolic Diameter MM 3.8 cm LA Ao Ratio MM 1.2 AV Cusp Separation MM 2.3 cm DOPPLER AV Peak Velocity 148.0 cm/s AV Peak Gradient 8.8 mmHg LVOT Peak Velocity 116.0 cm/s LVOT Peak Gradient 5.4 mmHg AV Area Cont Eq pk 3.3 cm MR Peak Velocity 297.0 cm/s MR Peak Gradient 35.3 mmHg LV E' Lateral Velocity 6.7 cm/s TR Peak Velocity 288.0 cm/s TR Peak Gradient 33.2 mmHg Right Atrial Pressure 10.0 mmHg Pulmonary Artery Systolic Pressu 43.2 mmHg Right Ventricular Systolic Press 43.2 mmHg PV Peak Velocity 114.0 cm/s PV Peak Gradient 5.2 mmHg FINDINGS LEFT VENTRICLE The left ventricular systolic function is normal with an estimated ejection fraction of 55%. Wall thickness is measured at the upper limits of normal. Normal left ventricular size. RIGHT VENTRICLE Normal right ventricular size and systolic function. LEFT ATRIUM The left atrial size is normal. RIGHT ATRIUM The right atrial size is normal. ATRIAL SEPTUM Normal atrial septal thickness without atrial level shunting by limited color doppler interrogation. AORTA The aortic root and proximal ascending aorta are normal in size on limited imaging. MITRAL VALVE Mild mitral valve regurgitation. AORTIC VALVE Trileaflet aortic valve. No aortic valve stenosis or regurgitation. TRICUSPID VALVE There is mild to moderate tricuspid valve regurgitation. The estimated pulmonary arterial pressure is 43.2 mmHg. PULMONARY VALVE No pulmonary valve regurgitation or stenosis. VESSELS The inferior vena cava is normal in size. PERICARDIUM No pericardial effusion. Nico Hinton MD, FACC (Electronically Signed) Final Date:08 Nov 2017 17:48
[2017-11-09] VITALS (9 sets, daily range): BP systolic 120–166; BP diastolic 60–88; PULSE 60–89; RESP 15–18; TEMP 97.1–98.2; O2SAT 95–98
[2017-11-09] MEDS: NITROGLYCERIN 2% OINT 1 GM PACKET TOPICAL SCH ×3 (06:19→22:24)
[2017-11-09] MEDS: METOPROLOL TARTRATE 25 MG TAB PO SCH ×3 (09:00→22:24)
[2017-11-09] MEDS: ACETAMINOPHEN/HYDROcodone 325 MG/10 MG TAB PO PRN ×3 (09:36→22:27)
[2017-11-09] MEDS: SODIUM CHLORIDE 0.9% FLUSH 10 ML FLUSH IV FLUSH SCH ×2 (09:36→22:24)
[2017-11-09] MEDS: ASPIRIN 325 MG TAB PO SCH (09:36)
[2017-11-09] MEDS: DOCUSATE SODIUM 50 MG/SENNA 8.6 MG TAB PO SCH ×2 (09:36→22:24)
--- NOTE | 2017-11-09 11:49 | MB ---
cc: Job Thurman MD DATE: 11/09/2017 REASON FOR CONSULTATION: Pulmonary clearance. HISTORY OF PRESENT ILLNESS: The patient is a 62-year-old gentleman who is here in the hospital with left retinal detachment. The patient was supposed to have surgery. He does have a history of pleurisy. He denies any shortness of breath or coughing or wheezing. He reported that he does have this pleuritic pain on the left side that comes and goes. It has been happening for the past 14-16 years. He said sometimes it goes away when he takes antibiotics with Bactrim, but sometimes the symptoms stay about 6-7 months. He did have a CAT scan about a couple years ago and he did have a recent chest x-ray. No fevers or chills or coughing or hemoptysis. PAST MEDICAL HISTORY: Reviewed in detail. Positive for significant coronary artery disease. PAST SURGICAL HISTORY: Reviewed. MEDICATIONS: Reviewed in detail. ALLERGIES: Reviewed. REVIEW OF SYSTEMS: Negative except what was mentioned in the HPI. PHYSICAL EXAMINATION: GENERAL: No acute distress. VITAL SIGNS: Shows temperature 97.8, pulse 69, respiratory rate 17, blood pressure 126/65. His sat 98% on room air. HEENT: Atraumatic, normocephalic. NECK: Trachea midline. LUNGS: Clear bilaterally. HEART: S1, S2. ABDOMEN: Soft, nontender. EXTREMITIES: No edema or cyanosis. NEUROLOGIC: Alert, oriented, moves all extremities. His left eye is covered with a patch. IMAGING STUDIES: Chest clear without any significant acute findings, may be possible mild basilar atelectasis. LABORATORY DATA: Labs reviewed in detail. ASSESSMENT AND PLAN: 1. Left retinal detachment. 2. Coronary artery disease. 3. History of pleurisy. Overall, the patient is doing well. I do not see any active pulmonary disease to contraindicate him from surgery. Thus, I will clear him to proceed with surgery from a pulmonary perspective. The patient will need an outpatient followup. Please call me if needed. Job Thurman MD SHEYLA/TL , 11:27 AM , 11:48 AM
[2017-11-09] MEDS: ENOXAPARIN SODIUM 40 MG/0.4 ML SYRINGE SQ SCH (12:00)
--- NOTE | 2017-11-09 12:38 | HHI.PR ---
Subjective Remarks occasional complains of chest discomfort, no diaphoresis left eye patch in place- hoping for surgery soon no neck pain Objective Vitals Vital Signs Date Time Temp Pulse Resp B/P (MAP) Pulse Ox O2 Delivery O2 Flow Rate FiO2 11/09/17 08:00 97.8 69 17 126/65 (85) 98 11/09/17 04:51 97.6 60 18 120/70 (87) 96 11/09/17 04:00 68 11/09/17 01:10 98.2 70 18 132/60 (84) 95 11/09/17 00:00 70 11/08/17 23:07 Room Air 11/08/17 22:23 18 11/08/17 20:00 76 11/08/17 20:00 97.9 74 17 133/73 (93) 97 11/08/17 17:36 99 21 11/08/17 16:00 98.2 64 17 132/85 (101) 95 I/O 11/08/17 11/08/17 11/08/17 11/09/17 11/09/17 11/09/17 07:00 15:00 23:00 07:00 15:00 23:00 Intake Total 240 ml 2 ml 1000 ml 580 ml Balance 240 ml 2 ml 1000 ml 580 ml Intake Oral 240 ml 1000 ml 580 ml IV Total 2 ml # Voids 2 3 3 # Bowel Movements 0 Result Diagram: 11/08/17 0316 11/08/17 0316 Imaging Last Impressions Chest X-Ray 11/07/17 1005 Signed Impressions: Service Date/Time: Tuesday, November 07, 2017 10:14 - CONCLUSION: 1. Mild basilar atelectasis. Tortuous aorta. No effusion or pneumothorax. Deyvi Brown MD Objective Remarks awake and alert no acute distress left eye- eye patch in place no bruit lungs- no rales regular rhythm, abdomen soft, good bowel sounds extremeities no edema neuro exam- non focal A/P Assessment and Plan 62-year-old male with a history of coronary artery disease and 7 stents placed, history of cardiac arrest 2010, angina, pleurisy was sent by his ophthalmology Dr. Parsons for admission and clearance by cardiology and pulmonology. patient has detached left retina 3-4 weeks ago and needs emergent surgery to repair his retina. Detached left retina d/w patient - informed consent Ophthalmology ff Patient with history of coronary artery disease was 7 stents placed, history of cardiac arrest 2010, angina or pleurisy. 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 Ativan 0.5 mg every 8 hours p.o. as needed for anxiety. DVT prophylaxis SCDs/teds/Lovenox d/w Ruben Noyola MD November 09, 2017 12:38
[2017-11-09] MEDS: SODIUM CHLOR 0.9% 1000 ML INJ 1,000 ML IV SCH ×2 (13:17→23:45)
--- NOTE | 2017-11-09 13:17 | PD.CARD.PN ---
Subjective Subjective Remarks Still having intermittent angina despite meds Objective Medications Current Medications Medications (Trade) Dose Ordered Sig/Zelalem Route Start Time Stop Time Status Last Admin (NS Flush) 2 ml UNSCH PRN IV FLUSH 11/07/17 10:30 (NS Flush) 2 ml BID IV FLUSH 11/07/17 21:00 11/09/17 09:36 (Tylenol) 650 mg Q4H PRN PO 11/07/17 10:30 (Zofran Inj) 4 mg Q6H PRN IVP 11/07/17 10:30 (Lovenox Inj) 40 mg Q24H SQ 11/07/17 12:00 11/08/17 15:33 (Narcan Inj) 0.4 mg UNSCH PRN IV PUSH 11/07/17 10:30 (Oriana-Colace) 1 tab BID PO 11/07/17 21:00 11/09/17 09:36 (Milk Of Magnesia Liq) 30 ml Q12H PRN PO 11/07/17 10:30 (Senokot) 17.2 mg Q12H PRN PO 11/07/17 10:30 (Dulcolax Supp) 10 mg DAILY PRN RECTAL 11/07/17 10:30 (Lactulose Liq) 30 ml DAILY PRN PO 11/07/17 10:30 (Aspirin) 325 mg DAILY PO 11/08/17 09:00 11/09/17 09:36 (Pill Splitter) 1 ea UNSCH PRN OTHER 11/07/17 11:00 (Ativan) 0.5 mg Q8H PRN PO 11/07/17 12:00 11/08/17 10:01 (Lopressor) 25 mg Q12HR PO 11/07/17 13:00 11/08/17 21:21 (Nitroglycerin 2% Oint) 1 inch Q8HR TOPICAL 11/07/17 14:00 11/09/17 06:19 (Morphine Inj) 2 mg Q4H PRN IV 11/07/17 20:30 (Cody 5-325 Mg) 1 tab Q4H PRN PO 11/07/17 19:45 (Cody 10-325 Mg) 1 tab Q4H PRN PO 11/07/17 19:45 11/09/17 09:36 Vital Signs / I&O Vital Signs Date Time Temp Pulse Resp B/P (MAP) Pulse Ox O2 Delivery O2 Flow Rate FiO2 11/09/17 08:00 97.8 69 17 126/65 (85) 98 11/09/17 04:51 97.6 60 18 120/70 (87) 96 11/09/17 04:00 68 11/09/17 01:10 98.2 70 18 132/60 (84) 95 11/09/17 00:00 70 11/08/17 23:07 Room Air 11/08/17 22:23 18 11/08/17 20:00 76 11/08/17 20:00 97.9 74 17 133/73 (93) 97 11/08/17 17:36 99 21 11/08/17 16:00 98.2 64 17 132/85 (101) 95 I/O 11/08/17 11/08/17 11/08/17 11/09/17 11/09/17 11/09/17 07:00 15:00 23:00 07:00 15:00 23:00 Intake Total 240 ml 2 ml 1000 ml 580 ml Balance 240 ml 2 ml 1000 ml 580 ml Intake Oral 240 ml 1000 ml 580 ml IV Total 2 ml # Voids 2 3 3 # Bowel Movements 0 Physical Exam GENERAL: Well developed, well nourished. No acute distress. HEENT: Jugular venous pressure is normal. CHEST: Lungs clear to auscultation bilaterally. Unlabored respiratory effort. CARDIAC: Regular rate and rhythm without S3, S4, or murmur. ABDOMEN: Soft, nontender, no hepatosplenomegaly. Bowel sounds present. EXTREMITIES: No clubbing, cyanosis, or edema. Assessment and Plan Problem List: (1) History of pleurisy ICD Codes: Z87.09 - Personal history of other diseases of the respiratory system Status: Acute (2) Coronary artery disease ICD Codes: I25.10 - Atherosclerotic heart disease of [place] coronary artery without angina pectoris Status: Acute (3) Unstable angina pectoris ICD Codes: I20.0 - Unstable angina Plan: Unfortunately, it's now clear that his angina is not stable. Having angina at rest despite meds. I spoke to Dr. Parsons and patient. Plan cath 7: 30AM, probable PCI or CABG. Informed consent obtained. Salomon Virgen MD November 09, 2017 13:17
[2017-11-09] MEDS ORDERED: ASPIRIN 81 MG CHEW TAB PO ONE (13:30)
[2017-11-09] MEDS ORDERED: DIAZEPAM 5 MG TAB PO SCH (13:30)
[2017-11-09] MEDS ORDERED: diphenhydrAMINE HCL 50 MG CAP PO SCH (13:30)
[2017-11-09] MEDS ORDERED: ASPIRIN 325 MG TAB PO SCH (13:30)
[2017-11-10] VITALS (7 sets, daily range): BP systolic 123–145; BP diastolic 72–76; PULSE 61–82; RESP 15–18; TEMP 97.3–98.6; O2SAT 94–98
[2017-11-10] MEDS: NITROGLYCERIN 2% OINT 1 GM PACKET TOPICAL SCH ×3 (05:42→22:27)
[2017-11-10] MEDS: ACETAMINOPHEN/HYDROcodone 325 MG/10 MG TAB PO PRN ×2 (05:47→20:09)
[2017-11-10] MEDS: ASPIRIN 325 MG TAB PO SCH ×2 (06:30→14:23)
[2017-11-10 07:02] LABS: AUTOMATED NEUTROPHIL # 3.8 TH/MM3 (1.8-7.7); BASOPHIL % 0.2 % (0.0-2.0); EOSINOPHIL # 0.1 TH/MM3 (0-0.4); EOSINOPHIL % 2.2 % (0.0-4.0); HEMATOCRIT 43.6 % (39.0-51.0); HEMOGLOBIN 15.3 GM/DL (13.0-17.0); LYMPH % 25.1 % (9.0-44.0); LYMPHOCYTE # 1.5 TH/MM3 (1.0-4.8); MEAN CELL VOLUME 83.6 FL (80.0-100.0); MEAN CORPUSCULAR HEMOGLOBIN 29.3 PG (27.0-34.0); MEAN PLATELET VOLUME 8.8 FL (7.0-11.0); MONO % 10.7 % (0.0-8.0); MONOCYTE # 0.6 TH/MM3 (0-0.9); NEUT % 61.8 % (16.0-70.0); PLATELET COUNT 98 TH/MM3 (150-450); RED BLOOD COUNT 5.22 MIL/MM3 (4.50-5.90); RED CELL DISTRIBUTION WIDTH 14.5 % (11.6-17.2); WHITE BLOOD COUNT 6.1 TH/MM3 (4.0-11.0)
[2017-11-10] MEDS ORDERED: HEPARIN-NS/PF FLUSH BAG 2,000 ML IV FLUSH ONE (07:06)
[2017-11-10] MEDS ORDERED: MIDAZOLAM HCL 2 MG/2 ML VIAL ONE (07:20)
[2017-11-10 07:29] LABS: BICARBONATE 25.6 MEQ/L (21.0-32.0); BLOOD UREA NITROGEN 16 MG/DL (7-18); CALCIUM 8.5 MG/DL (8.5-10.1); CHLORIDE 106 MEQ/L (98-107); GLOMERULAR FILTRATION RATE 98 ML/MIN (>89); GLUCOSE,RANDOM 87 MG/DL (74-106); SODIUM (NA) 141 MEQ/L (136-145)
[2017-11-10 07:33] LABS: TROPONIN I LESS THAN 0.02 NG/ML (0.02-0.05)
[2017-11-10 07:59] LABS: BANDS 2 % (0-6); LYMPHOCYTES 25 % (9-44); MONOCYTES 11 % (0-8); NEUTROPHIL # MANUAL DIFF 3.7 TH/MM3 (1.8-7.7); POLYS (SEG NEUTROPHILS) 58 % (16-70)
--- NOTE | 2017-11-10 08:41 | CATHPROC ---
[facility] HIS Report Study Information Study Number Admission Scheduled Start Study Start [id number] Nov 07 2017 11:04AM 11/10/2017 Nov 10 2017 7:20AM [place] [facility] Cardiac Catheterization Admit Source Facility Department Emergency department [facility] - Marriage Counselor Physician and Clinical Staff Initial Salomon Gutierrez [facility] Program Specialist Onel RN, Rm Recorder Lizeth Parra BSN Scrub Jhon Serrano RCIS(BS) Procedures Performed Procedure Location (Site) Vessel Name Angiogram LV LV Ventricle Coronary Angiograms LCA Left Coronary Coronary Angiograms RCA Right Coronary L Heart Cath Equipment Time Carpenter Rough Description Size Mfg Part Number Used/Scraped TRANSDUCER, TRUWAVE [id number] 07:30 DUNN AKERS * Used W/STOCKCOCK *[id number] *[id number] *[id number] *[id number] PIGTAIL ANG. 145 INFINITI [id number] CATHETER *[id number] 08:26 DAIG/[employer]. [employer] MEDICAL ANGIOSEAL, FR6 VIP FR 6 Used *[id number] 07:30 MEDLINE INDUSTRIES PACK, CCL CUSTOM * Used *[id number] 07:30 MEDLINE PACER PEN, SKIN DUAL W/ RULER * Used *[id number] 07:30 MOD Systems MEDICAL SHEATH, FR6.5 PRELUDE 11CM FR 6.5 038ACT Used *[id number] 08:37 [employer] MEDICAL SHEATH, FR6.5 PRELUDE 11CM FR 6.5 038ACT Used *[id number] 07:30 MOD [employer] MEDICAL WIRE, 3MMJ .035 180CM 180CM Used *[id number] 07:30 NAMIC MANIFOLD, 4 PORT * Used *[id number] 07:30 NYCOMED OMNIPAQUE, 350 MG, 150ML 150ML [id number] Used 07:58 NYCOMED OMNIPAQUE, 350 MG, 50ML 50ML [id number] Used [id number] 07:30 [employer] MED[employer] BLANKET,WARM AIR CCL * Used *[id number] Equipment Model, Serial, Lot Number and Expiration Data Description Model Number Serial Number Lot Number Expiration Date ANGIOSEAL, FR6 VIP [id number] 06-29-2018 History: Current Medications Medication Dosage/Unit Route Frequency Last Date/Time Taken Beta Felipe ASA History: Allergies Allergy Reaction sulfamethoxazole SKIN BLISTERS trimethoprim SKIN BLISTERS STEROIDS History: Risk Factors Family History of Hypertension Dyslipidemia Previous PR Previous Heart Failure Premature CAD No No Yes Yes No Prior Valve Prior PCI Prior PCIDate Prior CABG Surgery No Yes 01/09/2011 No Cerebrovascular Peripheral Artery Chronic Lung On Dialysis Diabetes Disease Disease Disease No No No No No History: Stress Tests Stress or Imaging Studies Performed No History: PR/CV Data Previous Cath Date 01/09/2011 History: Other Current Smoker Method Quit Packs a Day Years Used Pack Years No Cigarettes 44 Years Ago 1 1 1 Labs Hgb (g/dl) Hct (%) WBC (l/cumm) Platelets (thousands) 11.60-17.00 35.00-51.00 4.00-11.00 150.00-450.00 14.6 41.9 5.8 102 Glucose (mg/dl) BUN (mg/dl) Creatinine (mg/dl) BUN:Creatinine (1:x) 74.00-106.00 7.00-18.00 0.50-1.30 10.00-20.00 87 14 0.8 17.5 Na (meq/l) K (meq/l) 136.00-145.00 3.50-5.10 143 3.6 INR (PTT:PT) 0.90-1.10 1 CPK-MB (ng/ML) 0.50-3.60 Not Drawn Medication Medication Total Dose (Bolus/Oral) Medication Total Dosage/Unit 1% XYLOCAINE 20 mL FENTANYL 50 mcg OXYGEN 2 l/min VERSED 2 mg Medications (Bolus/Oral) Medication Time Given Dosage/Unit Administered By Reason VERSED 11/10/2017 7:50:49 AM 2 mg Rm Sykes RN 2 mg VERSED given in lab by Rm Sykes RN in Right Antecubital via Peripheral IV. Ordered by Salomon Virgen. 1% XYLOCAINE 11/10/2017 7:51:35 AM 20 mL Salomon Virgen 20 mL 1% XYLOCAINE given in lab by Salomon Virgen via Subcutaneous. Ordered by Salomon Virgen. FENTANYL 11/10/2017 7:53:16 AM 50 mcg Rm Sykes RN 50 mcg FENTANYL given in lab by Rm Sykes RN via Peripheral IV. Ordered by Salomon Virgen. OXYGEN 11/10/2017 7:59:19 AM 2 l/min Rm Sykes RN 2 l/min OXYGEN given in lab by Rm Sykes RN via Nasal. Ordered by Salomon Virgen. OXYGEN 11/10/2017 8:32:41 AM 0 l/min Rm Sykes RN 0 l/min OXYGEN removed in lab by Rm Sykes RN via Nasal. Ordered by Salomon Virgen. Medication (Drip) Medication Time Given Dosage/Unit Concentration/Unit Diluent (ml) Solution IV Solutions 11/10/2017 7:12:37 AM 50 mL (IV) NaCl .9 Patient arrived on IV Solutions via Peripheral IV. Pump/Drip Flow using NaCl .9. at [facility] Initial Case Assessment Cardiovascular HR Rhythm NIBP Chest Pain 71 sr 148/91 0 Edema Present Skin color Skin None Normal Warm Dry Circulatory - Right Pulses Dorsalis Pedis Femoral 3 3 Scale (0,1,2,3,4,d) Circulatory - Left Pulses Dorsalis Pedis Femoral 3 3 Scale (0,1,2,3,4,d) Circulatory - Lower Extremities Color Lower Right Color Lower Left Normal Normal Neurological State Oriented to time-place- Alert Moves all extremities person Respiration - General Respiration Rate SpO2 (%) (B/min) 12 97 Chronological Log Time Study Chronological Log 7:07:38 Patient arrived via Bed. 7:07:43 Patient Name, D.O.B, / Armband Verified By R.N. 7:07:47 Consent signed by the physician and the patient and verified by the Marriage Counselor staff. 7:10:54 Patient has been NPO for More than 6Hrs. 7:11:18 Skin Breakdown- none per patient 7:12:11 Alessandro Prominences Protected 7:12:15 A # 20 IV was noted in the Antecubital (right). Grade = 0 7:12:25 A # 20 IV was noted in the Forearm (left). Grade = 0 7:12:37 Patient arrived on IV Solutions via Peripheral IV. Pump/Drip Flow using NaCl .9. at [facility] 7:13:00 History and physical on the chart or being dictated. 7:17:24 Verbal Stimulation=2 Physical Stimulation=2 Airway=2 Respiration=2 TOTAL=8. (0=absent, 1=li mited, 2=present) Vitals capture started with the following parameters, Patient=Adult, Interval=5 min, Initial Pr wdujrf=985 mmHg, 7:19:48 Deflation Rate=5 mmHg, Cuff placed on Left Arm 7:20:08 Bilateral groins prepped with 2% chlorhexidine, and draped after a 3 minute waiting time. 7:21:47 MD paged Assessment: Initial Case, HR=71 BPM, Rhythm=sr, TBSL=665/91 mmhg, Chest Pain=0, Edema=None, [place] r=Normal, Skin = Warm, Dry Right Pulses: Marquise Ped=3, Femoral=3 Left Pulses: Marquise Ped=3, Femoral=3 7:23:06 Lower Right Extremities: Color=Normal Lower Left Extremities: Color=Normal Neurological: State=Alert, Ox3, [place] Respiration: Resp=12 B/min, SpO2=97 % 7:23:11 HR=68 bpm, WRVH=293/91 mmhg, SpO2=97.0 %, Resp=10 B/min, Pain=0, Lexi=10, Lezama=2 7:23:37 Pressure channel 1 zeroed. 7:26:02 Reference ECG taken 7:28:10 HR=79 bpm, LJNL=284/93 mmhg, SpO2=97.0 %, Resp=15 B/min, Pain=0, Lexi=10, Lezama=2 7:33:44 HR=72 bpm, PSZC=028/85 mmhg, SpO2=96.0 %, Resp=12 B/min, Pain=0, Lexi=10, Lezama=2 7:38:12 HR=75 bpm, GULV=635/73 mmhg, SpO2=95.0 %, Resp=11 B/min, Pain=0, Lexi=10, Lezama=2 7:43:46 HR=79 bpm, RUED=231/78 mmhg, SpO2=95.0 %, Resp=10 B/min, Pain=0, Lexi=10, Lezama=2 7:45:43 MD arrived. 7:48:10 HR=77 bpm, FONA=758/91 mmhg, SpO2=95.0 %, Resp=11 B/min, Pain=0, Lexi=10, Lezama=2 Time Out. Correct patient, correct procedure, correct physician, power injector loaded, with con trast with surgical team 7:50:13 present. Time Out Concurred by MD and individual staff in procedure. 7:50:31 Case Start 7:50:49 2 mg VERSED given in lab by Rm Sykes RN in Right Antecubital via Peripheral IV. Ordered by Salomon Virgen. 7:51:35 20 mL 1% XYLOCAINE given in lab by Salomon Virgen via Subcutaneous. Ordered by Salomon Virgen. 7:53:09 HR=79 bpm, LFUE=704/77 mmhg, SpO2=98.0 %, Resp=10 B/min, Pain=0, Lexi=10, Lezama=2 7:53:16 50 mcg FENTANYL given in lab by Rm Sykes RN via Peripheral IV. Ordered by Salomon Virgen. 7:53:27 Access site was Right Femoral Artery. 7:53:36 A SHEATH, FR6.5 PRELUDE 11CM FR 6.5 was advanced into the Fem Art (right) using the Percutan eous technique. A PIGTAIL ANG. 145 INFINITI CATHETER FR 6 was advanced over a wire. OMNIPAQUE, 350 MG, 150ML 150 ML was 7:54:26 used for injections. Recorded Pressure: LV, HR=76, Condition=Condition 1 7:55:16 (Left Ventricle) LV 111/-1/3 7:55:57 The LV was injected at 10 cc/sec for a total of 30. OMNIPAQUE, 350 MG, 50ML 50ML used. Recorded Pressure: LV, Ao, HR=74, Condition=Condition 1 7:56:32 (Left Ventricle) LV 96/-3/4, (Aorta) Ao 102/53/73 After removing the current catheter a 3DRC INFINITI CATHETER FR 6 was advanced over a WIRE, 3MMJ .035 180CM 7:57:15 180CM. 7:58:03 The RCA was injected and visualized at various angles. OMNIPAQUE, 350 MG, 150ML 150ML used. 7:58:43 HR=73 bpm, NMNT=496/64 mmhg, SpO2=88.0 %, Resp=8 B/min After removing the current catheter a JL 4.5 INFINITI CATHETER FR 6 was advanced over a WIRE, 3M MJ .035 180CM 7:59:03 180CM. 7:59:19 2 l/min OXYGEN given in lab by Rm Sykes RN via Nasal. Ordered by Salomon Virgen. Recorded Pressure: Ao, HR=77, Condition=Condition 1 8:00:07 (Aorta) Ao 115/60/83 After removing the current catheter a JL 5.0 INFINITI CATHETER FR 6 was advanced over a WIRE, 3M MJ .035 180CM 8:01:11 180CM. 8:02:37 The LCA was injected and visualized at various angles. OMNIPAQUE, 350 MG, 150ML 150ML used. 8:03:11 HR=68 bpm, COBA=314/64 mmhg, SpO2=95.0 %, Resp=12 B/min After removing the current catheter a 3DRC INFINITI CATHETER FR 6 was advanced over a WIRE, 3MMJ .035 180CM 8:05:51 180CM. 8:06:09 The RCA was injected and visualized at various angles. OMNIPAQUE, 350 MG, 150ML 150ML use d. 8:07:38 Catheter was removed 8:08:10 HR=70 bpm, JYCA=723/68 mmhg, SpO2=95.0 %, Resp=13 B/min 8:08:43 Dr Virgen reviewing films 8:13:11 HR=65 bpm, GTQI=144/61 mmhg, SpO2=95.0 %, Resp=11 B/min 8:18:12 HR=64 bpm, HEBP=188/64 mmhg, SpO2=97.0 %, Resp=12 B/min, Pain=0, Lexi=10, Lezama=2 8:21:21 Dr Sylvester at bedsided for consult 8:23:05 HR=65 bpm, EHAZ=387/65 mmhg, SpO2=97.0 %, Resp=13 B/min 8:25:50 An injection in the Fem Art (right) was made through the SHEATH, FR6.5 PRELUDE 11CM FR 6.5 . 8:26:36 ANGIOSEAL, FR6 VIP FR 6 placement in the Fem Art (right) 8:27:50 Case End 8:28:45 HR=81 bpm, SYAU=175/87 mmhg, SpO2=99.0 %, Resp=15 B/min, Pain=0, Lexi=10, Lezama=2 8:30:11 Sterile dressing applied to site 8:30:12 No case complications noted. 8:30:13 Cine recording checked. 8:30:17 Bedside Report will be given. 8:30:20 Implantable Device card placed in patient's chart. 8:30:23 A Left Heart Cath was performed. 8:32:41 0 l/min OXYGEN removed in lab by Rm Sykes RN via Nasal. Ordered by Salomon Virgen. 8:32:46 Vitals capture stopped. 8:36:[address] [facility] - Contrast Media Used In Study Contrast Total Opened (mL) Total Used (mL) Total Wasted (mL) Omnipaque 80 80 0 End Study - Maximum Contrast Load Max Contrast Load (mL) 445.7 End Study - Radiation Exposure Fluoro Time (minutes) 2.7 End Study - Patient Disposition Complications Transferred To No Marriage Counselor Holding
--- NOTE | 2017-11-10 09:00 | MA ---
cc: Salomon Virgen MD DATE: 11/10/2017 PROCEDURES PERFORMED: 1. Left heart catheterization. 2. Left ventriculography. 3. Coronary angiography. BRIEF HISTORY: Ralph Guajardo is a 62-year-old man who has had multiple PCIs and what looks like a previous ME as well before. Not all those records are available. He came in for retinal detachment for surgery, but because of unstable angina, I was consulted. I thought his angina could be controlled with medications, but subsequently it became clear that even with good antianginal therapy, he was having angina at rest, so I have elected to perform cardiac catheterization this morning. DESCRIPTION OF PROCEDURE: The patient was brought to the cardiac catheterization lab in a fasting state. The right groin was prepped and draped in a sterile fashion. Using 1% lidocaine for local anesthesia, a 6-1/2 Serbian sheath was inserted in the right femoral artery. LV pressure, LV pullback and an LV gram were performed using an angled pigtail catheter. Coronary angiography was completed using a left 5 and a 3DRC catheter. Angio-Seal was deployed in the right groin with good hemostasis. FINDINGS: HEMODYNAMICS: Left ventricular pressure is 96/0 with an end diastolic pressure of 4. Aortic pressure is 115/60 with a mean of 83. There was no gradient during pullback. 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 CORONARY ANGIOGRAPHY: The left main coronary artery is large and irregular. It bifurcates into the LAD and circumflex vessels. The LAD is a fairly normal up to the first diagonal branch and then has a very long zone of disease, over 4 cm, with a beaded appearance 70-90% severity, The distal LAD appears fairly normal, but small caliber, but probably graftable. The major diagonal branch has mild ostial disease in the 25% range, probably does not need revascularized. The circumflex artery is totally occluded at the ostium with prominent ceqip-ns-fumn collaterals. The LAD, circumflex and right coronary arteries all have diffuse stents in them. The right coronary artery has stents proximally. It has got an 80% eccentric, possibly ulcerated mid stenosis. Down by the bifurcation, the PDA has about 50% ostial disease, but also has 90% mid disease and is probably not graftable. The posterolateral branch; however, has 99% disease and it does appear graftable. CONCLUSIONS: 1. Unremarkable hemodynamics. 2. Mildly impaired left ventricular function. 3. Severe 3-vessel multivessel disease. RECOMMENDATIONS: Coronary artery bypass grafting to the LAD, circumflex, marginal branch, the right posterolateral branch and ultimately also the distal right coronary artery. Salomon Virgen MD VEW/DL , 08:42 AM , 08:59 AM
--- NOTE | 2017-11-10 09:16 | HHI.PR ---
Subjective Remarks seen 1:30 pm with back from mill laborer discuss with him results patient is more concern with his eye surgery to be done as soon as possible Objective Vitals Vital Signs Date Time Temp Pulse Resp B/P (MAP) Pulse Ox O2 Delivery O2 Flow Rate FiO2 11/10/17 08:48 98 Room Air 11/10/17 04:00 97.9 72 15 135/73 (93) 94 11/10/17 04:00 61 11/10/17 00:00 97.7 74 15 145/72 (96) 95 11/10/17 00:00 66 11/09/17 20:44 98 21 11/09/17 20:00 Room Air 11/09/17 20:00 70 11/09/17 20:00 97.1 77 15 142/75 (97) 96 11/09/17 16:00 97.8 70 16 136/78 (97) 97 11/09/17 12:00 97.7 89 18 166/88 (114) 97 I/O 11/09/17 11/09/17 11/09/17 11/10/17 11/10/17 11/10/17 07:00 15:00 23:00 07:00 15:00 23:00 Intake Total 580 ml 1440 ml 534 ml Balance 580 ml 1440 ml 534 ml Intake Oral 580 ml 1440 ml 0 ml IV Total 534 ml # Voids 3 3 3 # Bowel Movements 1 0 Result Diagram: 11/10/17 0547 11/10/17 0547 Imaging Last Impressions Chest X-Ray 11/07/17 1005 Signed Impressions: Service Date/Time: Tuesday, November 07, 2017 10:14 - CONCLUSION: 1. Mild basilar atelectasis. Tortuous aorta. No effusion or pneumothorax. Deyvi Brown MD Objective Remarks awake and alert no acute distress left eye- eye patch in place no bruit lungs- no rales regular rhythm, abdomen soft, good bowel sounds extremities no edema neuro exam- non focal no groin hematoma Procedures 11/10- cardiac cath 1. Unremarkable hemodynamics. 2. Mildly impaired left ventricular function. 3. Severe 3-vessel multivessel disease. A/P Assessment and Plan 62-year-old male with a history of coronary artery disease and 7 stents placed, history of cardiac arrest 2010, angina, pleurisy was sent by his ophthalmology Dr. Parsons for admission and clearance by cardiology and pulmonology. patient has detached left retina 3-4 weeks ago and needs emergent surgery to repair his retina. 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 Ativan 0.5 mg every 8 hours p.o. as needed for anxiety. DVT prophylaxis SCDs/teds/Lovenox d/w him and at bedside Ruben Green MD November 10, 2017 09:16
[2017-11-10 10:21] LABS: CHOLESTEROL/ HDL RATIO 4.03 RATIO; HDL CHOLESTEROL 35.7 MG/DL (40.0-60.0)
[2017-11-10] MEDS ORDERED: PAPAVERINE INJ 60 MG, NITROGLYCERIN INJ 100 MCG, DILTIAZEM INJ 100 MG in SODIUM CHLORID... IRRIGATION SCH (10:30)
[2017-11-10] MEDS ORDERED: METOPROLOL TARTRATE 25 MG TAB PO SCH (10:30)
[2017-11-10] MEDS ORDERED: DEXTROSE 50% IN WATER 50 ML VIAL(D50) IV PUSH PRN (10:30)
[2017-11-10] MEDS ORDERED: SODIUM CHLORIDE 0.9% FLUSH 10 ML FLUSH IV FLUSH PRN (10:30)
[2017-11-10] MEDS ORDERED: ceFAZolin 2 GM PREMIX 50 ML IV SCH (10:30)
[2017-11-10] MEDS ORDERED: CHLORHEXIDINE GLUCONATE 4% SOLN 120 ML BTL TOPICAL SCH (10:30)
[2017-11-10] MEDS ORDERED: INSULIN REGULAR (IV INFUSION) 100 UNITS in SODIUM CHLORIDE 0.9% INJ 99 ML IV PRN (10:30)
[2017-11-10] MEDS ORDERED: CEFAZOLIN INJ 500 MG in SODIUM CHLORIDE 0.9% IRR BTL 500 ML IRRIGATION SCH (10:30)
[2017-11-10] MEDS ORDERED: PAPAVERINE INJ 60 MG, NITROGLYCERIN INJ 100 MCG, VERAPAMIL INJ 100 MG in SODIUM CHLORID... IRRIGATION SCH (11:00)
[2017-11-10] MEDS ORDERED: IOHEXOL 350 MG/ML 100 ML BTL (for Cath Lab) OTHER ONE (11:43)
[2017-11-10 12:37] LABS: BILIRUBIN, URINE NEG (NEG); BLOOD, URINE NEG (NEG); GLUCOSE,URINE NEG (NEG); KETONE, URINE NEG (NEG); NITRITE,URINE NEG (NEG); PH, URINE 5.5 (5.0-8.5); URINE COLOR LIGHT-YELLOW (YELLW/STRAW); URINE LEUKOCYTE ESTERASE NEG (NEG)
[2017-11-10] MEDS: ACETAMINOPHEN/HYDROcodone 325 MG/5 MG TAB PO PRN (14:18)
[2017-11-10] MEDS: METOPROLOL TARTRATE 25 MG TAB PO SCH ×2 (14:19→20:06)
[2017-11-10] MEDS: DOCUSATE SODIUM 50 MG/SENNA 8.6 MG TAB PO SCH ×2 (14:22→20:06)
[2017-11-10] MEDS: SODIUM CHLORIDE 0.9% FLUSH 10 ML FLUSH IV FLUSH SCH ×2 (14:25→20:07)
--- NOTE | 2017-11-10 14:40 | PD.CAR.PN ---
CVT Progress Note Subjective/Hospital Course: PT SEEN AND EVALUATED STS DATA DISCUSSED WITH PT RISK SCORES About the STS Risk Calculator Procedure: CAB Only Risk of Mortality: 0.499% Morbidity or Mortality: 7.619% Long Length of Stay: 1.867% Short Length of Stay: 64.524% Permanent Stroke: 0.574% Prolonged Ventilation: 5.185% DSW Infection: 0.204% Renal Failure: 0.942% Reoperation: 3.109% Objective: Vital Signs Date Time Temp Pulse Resp B/P (MAP) Pulse Ox O2 Delivery O2 Flow Rate FiO2 11/10/17 14:00 97.3 77 16 130/75 (93) 96 11/10/17 10:28 98 11/10/17 08:48 98 Room Air 11/10/17 04:00 97.9 72 15 135/73 (93) 94 11/10/17 04:00 61 11/10/17 00:00 97.7 74 15 145/72 (96) 95 11/10/17 00:00 66 11/09/17 20:44 98 21 11/09/17 20:00 Room Air 11/09/17 20:00 70 11/09/17 20:00 97.1 77 15 142/75 (97) 96 11/09/17 16:00 97.8 70 16 136/78 (97) 97 Labs: Laboratory Tests Test 11/10/17 05:47 11/10/17 09:46 White Blood Count 6.1 TH/MM3 (4.0-11.0) Red Blood Count 5.22 MIL/MM3 (4.50-5.90) Hemoglobin 15.3 GM/DL (13.0-17.0) Hematocrit 43.6 % (39.0-51.0) Mean Corpuscular Volume 83.6 FL (80.0-100.0) Mean Corpuscular Hemoglobin 29.3 PG (27.0-34.0) Mean Corpuscular Hemoglobin Concent 35.0 % (32.0-36.0) Red Cell Distribution Width 14.5 % (11.6-17.2) Platelet Count 98 TH/MM3 (150-450) Mean Platelet Volume 8.8 FL (7.0-11.0) Neutrophils (%) (Auto) 61.8 % (16.0-70.0) Lymphocytes (%) (Auto) 25.1 % (9.0-44.0) Monocytes (%) (Auto) 10.7 % (0.0-8.0) Eosinophils (%) (Auto) 2.2 % (0.0-4.0) Basophils (%) (Auto) 0.2 % (0.0-2.0) Neutrophils # (Auto) 3.8 TH/MM3 (1.8-7.7) Lymphocytes # (Auto) 1.5 TH/MM3 (1.0-4.8) Monocytes # (Auto) 0.6 TH/MM3 (0-0.9) Eosinophils # (Auto) 0.1 TH/MM3 (0-0.4) Basophils # (Auto) 0.0 TH/MM3 (0-0.2) CBC Comment AUTO DIFF Differential Total Cells Counted 100 Neutrophils % (Manual) 58 % (16-70) Band Neutrophils % 2 % (0-6) Lymphocytes % 25 % (9-44) Monocytes % 11 % (0-8) Eosinophils % 4 % (0-4) Neutrophils # (Manual) 3.7 TH/MM3 (1.8-7.7) Differential Comment FINAL DIFF MANUAL Platelet Estimate LOW (NORMAL) Platelet Morphology Comment NORMAL (NORMAL) Red Cell Morphology Comment NORMAL (NORMAL) Blood Urea Nitrogen 16 MG/DL (7-18) Creatinine 0.80 MG/DL (0.60-1.30) Random Glucose 87 MG/DL (74-106) Calcium Level 8.5 MG/DL (8.5-10.1) Sodium Level 141 MEQ/L (136-145) Potassium Level 4.1 MEQ/L (3.5-5.1) Chloride Level 106 MEQ/L (98-107) Carbon Dioxide Level 25.6 MEQ/L (21.0-32.0) Anion Gap 9 MEQ/L (5-15) Estimat Glomerular Filtration Rate 98 ML/MIN (>89) Troponin I LESS THAN 0.02 NG/ML Triglycerides Level 141 MG/DL (42-150) Cholesterol Level 144 MG/DL (120-200) LDL Cholesterol 80 MG/DL (0-99) HDL Cholesterol 35.7 MG/DL (40.0-60.0) Cholesterol/HDL Ratio 4.03 RATIO Urine Color LIGHT-YELLOW (YELLW/STRAW) Urine Turbidity CLEAR (CLEAR) Urine pH 5.5 (5.0-8.5) Urine Specific [place] 1.042 (1.002-1.035) Urine Protein NEG mg/dL (NEG-TRACE) Urine Glucose (UA) NEG mg/dL (NEG) Urine Ketones NEG mg/dL (NEG) Urine Occult Blood NEG (NEG) Urine Nitrite NEG (NEG) Urine Bilirubin NEG (NEG) Urine Urobilinogen LESS THAN 2.0 MG/DL (LESS Urine Leukocyte Esterase NEG (NEG) Urine RBC LESS THAN 1 /hpf (0-3) Urine WBC LESS THAN 1 /hpf (0-5) Result Diagram: 11/10/17 0547 11/10/17 0547 (1) History of pleurisy (2) Coronary artery disease (3) Unstable angina pectoris Plan: Unfortunately, it's now clear that his angina is not stable. Having angina at rest despite meds. I spoke to Dr. Parsons and patient. Plan cath 7: 30AM, probable PCI or CABG. Informed consent obtained. Problem Qualifiers (1) Coronary artery disease: Qualified Codes: I25.118 - Atherosclerotic heart disease of [place] coronary artery with other forms of angina pectoris Marlene Portillo November 10, 2017 14:40
--- NOTE | 2017-11-10 14:58 | MB ---
cc: Genevieve Sylvester MD DATE: 11/10/2017 HISTORY OF PRESENT ILLNESS: A 62-year-old male. The patient known coronary artery disease, also has severe left eye retinal detachment, undergoing evaluation for surgery. He has had multiple revascularization procedures in the past. He has had a catheterization in 2010 with a patent proximal LAD stent. The circumflex had severe disease. The RCA had disease and was stented proximally in the mid segment. Second catheterization was on 01/16/2011, and the circumflex was then stented, but then had re-in-stent stenosis and a PCI to the RCA secondary to a clot. He has had chronic angina over the past couple of years. He has been on Imdur at home. He only gets the discomfort if he hs not taken his medication. He is currently being worked up by Dr. Parsons, ophthalmology, for retinal eye surgery. The patient has been having this retinal detachment for the past couple of weeks, finally got a workup, but it required cardiology clearance. Therefore, the patient underwent cardiac catheterization by Dr. Virgen, which showed ejection fraction of 45%. The mid distal had an 80-90% stenosis, the diagonal 25. The circuit was 100% occluded. The RCA 95% posterior lateral. The PDA was also 90%. We were consulted to evaluate for coronary artery bypass grafting to the LAD, OM at the distal RCA in the right posterior lateral. In the midst of discussing this with the patient, Dr. Virgen also spoke with Dr. Parsons in regard to the left retinal detachment. He is evaluating possibility for a retinal detachment surgery under local anesthetic and not a 3-hour procedure requiring anesthesia. 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 PAST SURGICAL HISTORY: Include multiple stenting in the past. ALLERGIES: SULFA. HOME MEDICATIONS: Include Imdur, nitroglycerine, metoprolol, aspirin, and Suboxone. FAMILY HISTORY: Noncontributory. SOCIAL HISTORY: The patient apparently just recently lost the mother of his children. He has 5 kids. She 2 weeks ago. He is very concerned. Apparently, he has been evaluated by [facility] for being able to take care of the 2 smaller children. REVIEW OF SYSTEMS: As above in HPI. Other 12 systems unremarkable. PHYSICAL EXAMINATION: VITAL SIGNS: Blood pressure 130/70, heart rate is 76, afebrile, on room air. GENERAL: The patient is awake, alert, in no acute distress. HEENT: Head is normocephalic, atraumatic. The patient has a dilated left pupil with decreased vision in the left eye. Extraocular motor testing intact. NECK: Supple. No JVD. HEART: Sounds S1, S2. Regular rate and rhythm. No audible rubs, murmurs, gallops. LUNGS: Clear to auscultation. No wheezes, rales or rhonchi. ABDOMEN: Soft, nontender, no masses or organomegaly. EXTREMITIES: No cyanosis, clubbing, or edema. LABORATORY AND DIAGNOSTIC DATA: Shows hemoglobin 15, hematocrit of 43, white cell count of 6.1, platelet count of 98. Sodium 141, potassium 4.1, BUN is 16, creatinine 0.80. INR 1.0. Urinalysis unremarkable. Chest x-ray, some mild basilar atelectasis. The patient also had a 2D echocardiogram, which showed an ejection fraction of 55% versus the cath, which showed 45. Mild to moderate tricuspid regurgitation. IMPRESSION: This is a 62-year-old male with multivessel disease. He has had multiple PCI stenting in the past, now with 4-vessel disease; however, the patient is also having a detached retina and again, Dr. Virgen spoke with Dr. Parsons, and he is evaluating for possible retinal surgery under local anesthesia. He will need to recover and he will be maximized on medical therapy in the time being, per Dr. Virgen, and then brought back to our office to evaluate for surgery in approximately 3-4 weeks. STS data will be documented in the electronic record. Dictated by SKY Carrera MD GRABIEL Paredes/DEEPTI , 02:38 PM , 02:57 PM CHIDI
[2017-11-10] MEDS: SODIUM CHLOR 0.9% 1000 ML INJ 1,000 ML IV SCH (19:17)
--- NOTE | 2017-11-10 19:53 | RADRPT ---
EXAM DATE/TIME: 11/10/2017 18:03 [facility] COMPARISON: No previous studies available for comparison. INDICATIONS : Preop cardiac surgery. MEDICAL HISTORY : Myocardial infarction. Hernia, hiatal. Chest pain. Irregular heartbeat. Pleursy. Anticoagulant ther apy, Aspirin. SURGICAL HISTORY : Coronary artery stent. Cardiac cath. Left knee cartilage removed. ENCOUNTER: Initial ACUITY: 1 day PAIN SCORE: 0/10 LOCATION: Bilateral neck PEAK SYSTOLIC VELOCITIES (cm/sec): ICA/CCA RATIO: Right: 1.1 Left: 1.0 ICA: Right: 80 Left: 95 CCA: Right: 75 Left: 91 ECA: Right: 105 Left: 84 VERTEBRAL: Right: 80 antegrade Left: 36 antegrade Elevated flow velocities and ICA/CCA ratios have been found to correlate with increased degrees of vessel stenosis, calculated as percentage of diameter relative to a normal segment of distal ICA/CCA FINDINGS: RIGHT CAROTID: No significant stenosis is visualized. The waveforms are within normal limits. LEFT CAROTID: No significant stenosis is visualized. The waveforms are within normal limits. VERTEBRAL ARTERIES: Antegrade flow is seen in both vertebral arteries. MISCELLANEOUS: None. CONCLUSION: No evidence of flow-limiting carotid stenosis. Alejandro Alexandra MD on November 10, 2017 at 19:50 Board Certified Radiologist. This report was verified electronically.
--- NOTE | 2017-11-10 19:53 | RADRPT ---
EXAM DATE/TIME: 11/10/2017 18:25 [facility] COMPARISON: No previous studies available for comparison. INDICATIONS : Preop cardiac surgery. MEDICAL HISTORY : Hernia, hiatal. Myocardial infarction. Chest pain. Irregular heartbeat. Pleursy. Anticoagulant thera py, Aspirin. SURGICAL HISTORY : Coronary artery stent. Cardiac cath. Left knee cartilage removed. ENCOUNTER: Initial ACUITY: 1 day PAIN SCORE: 0/10 LOCATION: Bilateral leg. TECHNIQUE: Venous ultrasound of the left and right leg was performed from the inguinal ligament to the proximal calf. Real-time, color Doppler and spectral tracing, compression and augmentation techniques were us ed. FINDINGS: RIGHT LEG: There is normal compressibility of the deep venous system from the inguinal region to the proximal ca lf. No echogenic clot is seen in the lumen of the common femoral, femoral, popliteal, and posterior tibial veins. There is a normal response of the venous system to proximal and distal augmentation an d respiration. LEFT LEG: There is normal compressibility of the deep venous system from the inguinal region to the proximal ca lf. No echogenic clot is seen in the lumen of the common femoral, femoral, popliteal, and posterior tibial veins. There is a normal response of the venous system to proximal and distal augmentation an d respiration. CONCLUSION: Normal examination. Alejandro Alexandra MD on November 10, 2017 at 19:50 Board Certified Radiologist. This report was verified electronically.
--- NOTE | 2017-11-10 19:57 | RADRPT ---
EXAM DATE/TIME: 11/10/2017 18:41 [facility] COMPARISON: No previous studies available for comparison. INDICATIONS : Preop cardiac surgery. MEDICAL HISTORY : Myocardial infarction. Hernia, hiatal. Chest pain. Irregular heartbeat. Pleursy. Anticoagulant thera py, Aspirin. SURGICAL HISTORY : Coronary artery stent. Cardiac cath. Left knee cartilage removed. ENCOUNTER: Initial ACUITY: 1 day PAIN SCORE: 0/10 LOCATION: Bilateral leg. GREATER SAPHENOUS VEIN THIGH: PROXIMAL: Right 5 mm Left 4 mm MID: Right Non-visualized Left 1 mm DISTAL: Right Non-visualized Left Non-visualized CALF: PROXIMAL: Right Non-visualized Left Non-visualized MID: Right Non-visualized Left Non-visualized DISTAL: Right Non-visualized Left Non-visualized FINDINGS: The venous system of the lower extremities are patent by color Doppler imaging. Measurements of the leg veins (in mm) are listed above. CONCLUSION: Small caliber saphenous vessels, essentially nonvisualized beyond the mid thigh bilaterally Alejandro Alexandra MD on November 10, 2017 at 19:54 Board Certified Radiologist. This report was verified electronically.
[2017-11-10] MEDS ORDERED: SODIUM CHLORIDE 0.9% FLUSH 10 ML FLUSH IV FLUSH SCH (21:00)
[2017-11-10 22:43] LABS: HEMOGLOBIN A1C 5.6 % (4.3-6.0)
[2017-11-11] VITALS: BP 152/85; PULSE 72; RESP 18; TEMP 97.9; O2SAT 97
[2017-11-11 04:00] VITALS: BP 105/68; PULSE 70; RESP 18; TEMP 97.8; O2SAT 95
[2017-11-11] MEDS: SODIUM CHLOR 0.9% 1000 ML INJ 1,000 ML IV SCH ×2 (05:17→15:17)
[2017-11-11] MEDS: ACETAMINOPHEN/HYDROcodone 325 MG/10 MG TAB PO PRN (05:51)
[2017-11-11] MEDS: NITROGLYCERIN 2% OINT 1 GM PACKET TOPICAL SCH ×3 (05:52→22:31)
[2017-11-11 08:00] VITALS: BP 128/80; PULSE 68; PULSE 71; RESP 18; TEMP 97.7; O2SAT 97
[2017-11-11] MEDS: METOPROLOL TARTRATE 25 MG TAB PO SCH ×2 (09:58→21:04)
[2017-11-11] MEDS: SODIUM CHLORIDE 0.9% FLUSH 10 ML FLUSH IV FLUSH SCH ×2 (09:58→21:04)
[2017-11-11] MEDS: DOCUSATE SODIUM 50 MG/SENNA 8.6 MG TAB PO SCH ×2 (09:58→21:04)
[2017-11-11] MEDS: ACETAMINOPHEN/HYDROcodone 325 MG/5 MG TAB PO PRN ×3 (11:22→22:31)
[2017-11-11 12:00] VITALS: BP 127/74; PULSE 87; PULSE 93; RESP 18; TEMP 97.7; O2SAT 96
--- NOTE | 2017-11-11 13:00 | PD.CARD.PN ---
Subjective Subjective Remarks no angina today Objective Medications Current Medications Medications (Trade) Dose Ordered Sig/Zelalem Route Start Time Stop Time Status Last Admin (NS Flush) 2 ml UNSCH PRN IV FLUSH 11/07/17 10:30 (NS Flush) 2 ml BID IV FLUSH 11/07/17 21:00 11/11/17 09:58 (Tylenol) 650 mg Q4H PRN PO 11/07/17 10:30 (Zofran Inj) 4 mg Q6H PRN IVP 11/07/17 10:30 (Lovenox Inj) 40 mg Q24H SQ 11/07/17 12:00 Future Hold 11/08/17 15:33 (Narcan Inj) 0.4 mg UNSCH PRN IV PUSH 11/07/17 10:30 (Oriana-Colace) 1 tab BID PO 11/07/17 21:00 11/11/17 09:58 (Milk Of Magnesia Liq) 30 ml Q12H PRN PO 11/07/17 10:30 (Senokot) 17.2 mg Q12H PRN PO 11/07/17 10:30 (Dulcolax Supp) 10 mg DAILY PRN RECTAL 11/07/17 10:30 (Lactulose Liq) 30 ml DAILY PRN PO 11/07/17 10:30 (Aspirin) 325 mg DAILY PO 11/08/17 09:00 11/10/17 14:23 (Pill Splitter) 1 ea UNSCH PRN OTHER 11/07/17 11:00 (Ativan) 0.5 mg Q8H PRN PO 11/07/17 12:00 11/08/17 10:01 (Lopressor) 25 mg Q12HR PO 11/07/17 13:00 11/11/17 09:58 (Nitroglycerin 2% Oint) 1 inch Q8HR TOPICAL 11/07/17 14:00 11/11/17 05:52 (Morphine Inj) 2 mg Q4H PRN IV 11/07/17 20:30 ([place] 5-325 Mg) 1 tab Q4H PRN PO 11/07/17 19:45 11/11/17 11:22 ([place] 10-325 Mg) 1 tab Q4H PRN PO 11/07/17 19:45 11/11/17 05:51 Sodium Chloride 1,000 ml @ 100 mls/hr Q10H IV 11/09/17 13:17 11/14/17 13:16 11/09/17 23:45 (Aspirin) 325 mg [employer]ISSON WORKER PO 11/09/17 13:30 11/13/17 13:29 (Benadryl) 50 mg [employer]ISSON WORKER PO 11/09/17 13:30 11/13/17 13:29 (Valium) 5 mg CAISSON WORKER PO 11/09/17 13:30 11/13/17 13:29 Cefazolin Sodium 500 mg/Sodium Chloride 505 ml @ 0 mls/hr CAISSON WORKER IRRIGATION 11/10/17 10:30 11/17/17 10:29 Cefazolin Sodium/ Dextrose 50 ml @ 150 mls/hr CAISSON WORKER IV 11/10/17 10:30 11/17/17 10:29 (Lopressor) 12.5 mg CAISSON WORKER PO 11/10/17 10:30 11/17/17 10:29 (Hibiclens 4% Top Soln) 1 applic CAISSON WORKER TOPICAL 11/10/17 10:30 11/17/17 10:29 Insulin Human Regular 100 units/ Sodium Chloride 100 ml @ 3 mls/hr TITRATE PRN IV 11/10/17 10:30 11/17/17 10:29 (D50w (Vial) Inj) 50 ml UNSCH PRN IV PUSH 11/10/17 10:30 Papaverine HCl 60 mg/Nitroglycerin 100 mcg/Verapamil HCl 100 mg/Sodium Chloride 100 ml @ 0 mls/hr CAISSON WORKER IRRIGATION 11/10/17 11:00 11/17/17 10:29 Vital Signs / I&O Vital Signs Date Time Temp Pulse Resp B/P (MAP) Pulse Ox O2 Delivery O2 Flow Rate FiO2 11/11/17 12:00 97.7 87 18 127/74 (91) 96 11/11/17 08:00 97.7 71 18 128/80 (96) 97 11/11/17 08:00 97 Room Air 11/11/17 08:00 68 11/11/17 04:00 70 11/11/17 04:00 97.8 70 18 105/68 (80) 95 11/11/17 00:00 97.9 72 18 152/85 (107) 97 11/10/17 23:44 66 11/10/17 20:18 21 11/10/17 20:00 98.6 82 18 137/76 (96) 95 11/10/17 16:00 98.1 80 17 123/73 (90) 95 18 15:18 18 11/10/17 14:00 97.3 77 16 130/75 (93) 96 I/O 11/10/17 11/10/17 11/10/17 11/11/17 11/11/17 11/11/17 07:00 15:00 23:00 07:00 15:00 23:00 Intake Total 534 ml 480 ml 360 ml Balance 534 ml 480 ml 360 ml Intake Oral 0 ml 480 ml 360 ml IV Total 534 ml # Voids 3 6 3 # Bowel Movements 0 1 0 Physical Exam GENERAL: Well developed, well nourished. No acute distress. HEENT: Jugular venous pressure is normal. CHEST: Lungs clear to auscultation bilaterally. Unlabored respiratory effort. CARDIAC: Regular rate and rhythm without S3, S4, or murmur. ABDOMEN: Soft, nontender, no hepatosplenomegaly. Bowel sounds present. EXTREMITIES: No clubbing, cyanosis, or edema. right groin OK. Assessment and Plan Problem List: (1) History of pleurisy ICD Codes: Z87.09 - Personal history of other diseases of the respiratory system Status: Acute (2) Coronary artery disease ICD Codes: I25.10 - Atherosclerotic heart disease of [place] coronary artery without angina pectoris Status: Acute Plan: CABG after recovery from eye surgery. Patient understands and has had risks explained to him (3) Unstable angina pectoris ICD Codes: I20.0 - Unstable angina Assessment and Plan Cleared for eye surgery under local/ sedation (not general anesthesia). Problem Qualifiers (1) Coronary artery disease: Qualified Codes: I25.118 - Atherosclerotic heart disease of [place] coronary artery with other forms of angina pectoris Salomon Virgen MD November 11, 2017 13:00
--- NOTE | 2017-11-11 15:47 | HHI.PR ---
Subjective Remarks Pt states that his vision is about the same and remains laying on his back to help w the retinal detachment. He is hopeful to have sx tomorrow. denies any nausea or vomiting. denies any CP/SOB Objective Vitals Vital Signs Date Time Temp Pulse Resp B/P (MAP) Pulse Ox O2 Delivery O2 Flow Rate FiO2 11/11/17 12:00 97.7 87 18 127/74 (91) 96 11/11/17 12:00 93 11/11/17 08:00 97.7 71 18 128/80 (96) 97 11/11/17 08:00 97 Room Air 11/11/17 08:00 68 11/11/17 04:00 70 11/11/17 04:00 97.8 70 18 105/68 (80) 95 11/11/17 00:00 97.9 72 18 152/85 (107) 97 11/10/17 23:44 66 11/10/17 20:18 21 11/10/17 20:00 98.6 82 18 137/76 (96) 95 11/10/17 16:00 98.1 80 17 123/73 (90) 95 I/O 11/10/17 11/10/17 11/10/17 11/11/17 11/11/17 11/11/17 07:00 15:00 23:00 07:00 15:00 23:00 Intake Total 534 ml 480 ml 360 ml Balance 534 ml 480 ml 360 ml Intake Oral 0 ml 480 ml 360 ml IV Total 534 ml # Voids 3 6 3 # Bowel Movements 0 1 0 Result Diagram: 11/10/17 0547 11/10/17 0547 Imaging Last Impressions Lower Extremity Ultrasound 11/10/17 0000 Signed Impressions: Service Date/Time: Friday, November 10, 2017 18:41 - CONCLUSION: Small caliber saphenous vessels, essentially nonvisualized beyond the mid thigh bilaterally Alejandro Alexandra MD Carotid Artery Ultrasound 11/10/17 0000 Signed Impressions: Service Date/Time: Friday, November 10, 2017 18:03 - CONCLUSION: No evidence of flow-limiting carotid stenosis. Alejandro Alexandra MD Chest X-Ray 11/07/17 1005 Signed Impressions: Service Date/Time: Tuesday, November 07, 2017 10:14 - CONCLUSION: 1. Mild basilar atelectasis. Tortuous aorta. No effusion or pneumothorax. Deyvi Brown MD Objective Remarks awake and alert no acute distress left eye- no eye patch in place CVS rrr w no murmurs lungs- clear w no wheezing abdomen soft, good bowel sounds Procedures 11/10- cardiac cath 1. Unremarkable hemodynamics. 2. Mildly impaired left ventricular function. 3. Severe 3-vessel multivessel disease. A/P Assessment and Plan 62-year-old male with a history of coronary artery disease and 7 stents placed , history of cardiac arrest 2010, angina, pleurisy was sent by his ophthalmology Dr. Parsons for admission and clearance by cardiology and pulmonology. patient has detached left retina 3-4 weeks ago and needs emergent surgery to repair his retina. Detached left retina d/w Dr. Parsons today who requested re-consult to cards for cardiac clearance for local sedation and also consult to anesthesiology for same. ophthalmology following. Plan would be for retinal detachment sx soon coronary artery disease was 7 stents placed, history of cardiac arrest 2010, angina S/P cath- 3 V disease continue meds Cardiology ff - on Nitrol paste q 6 Vascular surgery consulted for CABG and recommends waiting and re-eval in 3- 4 weeks. 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 Ativan 0.5 mg every 8 hours p.o. as needed for anxiety. DVT prophylaxis SCDs/teds/Lovenox Discharge Planning Pt has been cleared by cardiology for local sedation for retinal detachment sx. Awaiting anesthesia eval per Dr. Parsons's request Marleni Tatum MD November 11, 2017 15:47
[2017-11-11 16:00] VITALS: BP 127/61; PULSE 83; RESP 17; TEMP 98.7; O2SAT 97
[2017-11-11 20:00] VITALS: BP 128/77; PULSE 83; RESP 17; TEMP 97.7; O2SAT 94
[2017-11-12] VITALS (8 sets, daily range): BP systolic 106–142; BP diastolic 64–82; PULSE 66–88; RESP 17–18; TEMP 97.3–98.9; O2SAT 93–98
[2017-11-12] MEDS: SODIUM CHLOR 0.9% 1000 ML INJ 1,000 ML IV SCH ×3 (01:17→20:12)
[2017-11-12] MEDS: NITROGLYCERIN 2% OINT 1 GM PACKET TOPICAL SCH ×3 (05:53→23:29)
[2017-11-12] MEDS: ACETAMINOPHEN/HYDROcodone 325 MG/10 MG TAB PO PRN ×4 (05:53→20:19)
[2017-11-12] MEDS: DOCUSATE SODIUM 50 MG/SENNA 8.6 MG TAB PO SCH ×2 (08:15→20:11)
[2017-11-12] MEDS: METOPROLOL TARTRATE 25 MG TAB PO SCH ×2 (08:15→20:11)
[2017-11-12] MEDS: ASPIRIN 325 MG TAB PO SCH (08:16)
[2017-11-12] MEDS: SODIUM CHLORIDE 0.9% FLUSH 10 ML FLUSH IV FLUSH SCH ×2 (08:16→20:11)
--- NOTE | 2017-11-12 10:50 | PD.CARD.PN ---
Subjective Subjective Remarks no angina Objective Medications Current Medications Medications (Trade) Dose Ordered Sig/Zelalem Route Start Time Stop Time Status Last Admin (NS Flush) 2 ml UNSCH PRN IV FLUSH 11/07/17 10:30 (NS Flush) 2 ml BID IV FLUSH 11/07/17 21:00 11/12/17 08:16 (Tylenol) 650 mg Q4H PRN PO 11/07/17 10:30 (Zofran Inj) 4 mg Q6H PRN IVP 11/07/17 10:30 (Lovenox Inj) 40 mg Q24H SQ 11/07/17 12:00 Future Hold 11/08/17 15:33 (Narcan Inj) 0.4 mg UNSCH PRN IV PUSH 11/07/17 10:30 (Oriana-Colace) 1 tab BID PO 11/07/17 21:00 11/12/17 08:15 (Milk Of Magnesia Liq) 30 ml Q12H PRN PO 11/07/17 10:30 (Senokot) 17.2 mg Q12H PRN PO 11/07/17 10:30 (Dulcolax Supp) 10 mg DAILY PRN RECTAL 11/07/17 10:30 (Lactulose Liq) 30 ml DAILY PRN PO 11/07/17 10:30 (Aspirin) 325 mg DAILY PO 11/08/17 09:00 11/12/17 08:16 (Pill Splitter) 1 ea UNSCH PRN OTHER 11/07/17 11:00 (Ativan) 0.5 mg Q8H PRN PO 11/07/17 12:00 11/08/17 10:01 (Lopressor) 25 mg Q12HR PO 11/07/17 13:00 11/12/17 08:15 (Nitroglycerin 2% Oint) 1 inch Q8HR TOPICAL 11/07/17 14:00 11/12/17 05:53 (Morphine Inj) 2 mg Q4H PRN IV 11/07/17 20:30 ([place] 5-325 Mg) 1 tab Q4H PRN PO 11/07/17 19:45 11/11/17 22:31 ([place] 10-325 Mg) 1 tab Q4H PRN PO 11/07/17 19:45 11/12/17 09:56 Sodium Chloride 1,000 ml @ 100 mls/hr Q10H IV 11/09/17 13:17 11/14/17 13:16 11/09/17 23:45 (Aspirin) 325 mg [employer] MACHINE OPERATOR PO 11/09/17 13:30 11/13/17 13:29 (Benadryl) 50 mg [employer] MACHINE OPERATOR PO 11/09/17 13:30 11/13/17 13:29 (Valium) 5 mg [employer] MACHINE OPERATOR PO 11/09/17 13:30 11/13/17 13:29 Cefazolin Sodium 500 mg/Sodium Chloride 505 ml @ 0 mls/hr [employer] MACHINE OPERATOR IRRIGATION 11/10/17 10:30 11/17/17 10:29 Cefazolin Sodium/ Dextrose 50 ml @ 150 mls/hr [employer] MACHINE OPERATOR IV 11/10/17 10:30 11/17/17 10:29 (Lopressor) 12.5 mg [employer] MACHINE OPERATOR PO 11/10/17 10:30 11/17/17 10:29 (Hibiclens 4% Top Soln) 1 applic [employer] GR[employer] MACHINE OPERATOR TOPICAL 11/10/17 10:30 11/17/17 10:29 Insulin Human Regular 100 units/ Sodium Chloride 100 ml @ 3 mls/hr TITRATE PRN IV 11/10/17 10:30 11/17/17 10:29 (D50w (Vial) Inj) 50 ml UNSCH PRN IV PUSH 11/10/17 10:30 Papaverine HCl 60 mg/Nitroglycerin 100 mcg/Verapamil HCl 100 mg/Sodium Chloride 100 ml @ 0 mls/hr [employer] MACHINE OPERATOR IRRIGATION 11/10/17 11:00 11/17/17 10:29 Vital Signs / I&O Vital Signs Date Time Temp Pulse Resp B/P (MAP) Pulse Ox O2 Delivery O2 Flow Rate FiO2 11/12/17 08:00 97.7 66 18 126/72 (90) 93 11/12/17 04:00 97.8 66 18 116/75 (89) 95 11/12/17 00:00 97.3 77 17 106/64 (78) 95 11/11/17 20:00 97.7 83 17 128/77 (94) 94 11/11/17 16:00 98.7 83 17 127/61 (83) 97 11/11/17 12:00 97.7 87 18 127/74 (91) 96 11/11/17 12:00 93 I/O 11/11/17 11/11/17 11/11/17 11/12/17 11/12/17 11/12/17 07:00 15:00 23:00 07:00 15:00 23:00 Intake Total 360 ml 1200 ml 240 ml Balance 360 ml 1200 ml 240 ml Intake Oral 360 ml 1200 ml 240 ml # Voids 3 4 2 # Bowel Movements 0 2 Physical Exam GENERAL: Well developed, well nourished. No acute distress. HEENT: Jugular venous pressure is normal. CHEST: Lungs clear to auscultation bilaterally. Unlabored respiratory effort. CARDIAC: Regular rate and rhythm without S3, S4, or murmur. ABDOMEN: Soft, nontender, no hepatosplenomegaly. Bowel sounds present. EXTREMITIES: No clubbing, cyanosis, or edema. right groin OK. Assessment and Plan Problem List: (1) History of pleurisy ICD Codes: Z87.09 - Personal history of other diseases of the respiratory system Status: Acute (2) Coronary artery disease ICD Codes: I25.10 - Atherosclerotic heart disease of [place] coronary artery without angina pectoris Status: Acute (3) Unstable angina pectoris ICD Codes: I20.0 - Unstable angina Assessment and Plan At this point we are just waiting on Dr. Parsons. He has already been cleared. Problem Qualifiers (1) Coronary artery disease: Qualified Codes: I25.118 - Atherosclerotic heart disease of [place] coronary artery with other forms of angina pectoris Salomon Virgen MD November 12, 2017 10:50
--- NOTE | 2017-11-12 14:55 | HHI.PR ---
Subjective Remarks Pain in eye on and off. None at this time. states he spoke w Dr. Parsons last night. Apparently he is making arrangement for the OR to have the equipment he needs. No new concerns Objective Vitals Vital Signs Date Time Temp Pulse Resp B/P (MAP) Pulse Ox O2 Delivery O2 Flow Rate FiO2 11/12/17 12:00 97.8 70 18 111/66 (81) 94 11/12/17 09:15 95 21 11/12/17 08:00 97.7 66 18 126/72 (90) 93 11/12/17 04:00 97.8 66 18 116/75 (89) 95 11/12/17 00:00 97.3 77 17 106/64 (78) 95 11/11/17 20:00 97.7 83 17 128/77 (94) 94 11/11/17 16:00 98.7 83 17 127/61 (83) 97 I/O 11/11/17 11/11/17 11/11/17 11/12/17 11/12/17 11/12/17 07:00 15:00 23:00 07:00 15:00 23:00 Intake Total 360 ml 1200 ml 240 ml Balance 360 ml 1200 ml 240 ml Intake Oral 360 ml 1200 ml 240 ml # Voids 3 4 2 # Bowel Movements 0 2 Result Diagram: 11/10/17 0547 11/10/17 0547 Imaging Last Impressions Lower Extremity Ultrasound 11/10/17 0000 Signed Impressions: Service Date/Time: Friday, November 10, 2017 18:41 - CONCLUSION: Small caliber saphenous vessels, essentially nonvisualized beyond the mid thigh bilaterally Alejandro Alexandra MD Carotid Artery Ultrasound 11/10/17 0000 Signed Impressions: Service Date/Time: Friday, November 10, 2017 18:03 - CONCLUSION: No evidence of flow-limiting carotid stenosis. Alejandro Alexandra MD Chest X-Ray 11/07/17 1005 Signed Impressions: Service Date/Time: Tuesday, November 07, 2017 10:14 - CONCLUSION: 1. Mild basilar atelectasis. Tortuous aorta. No effusion or pneumothorax. Deyvi Brown MD Objective Remarks awake and alert no acute distress left eye- no eye patch in place CVS rrr w no murmurs lungs- clear w no wheezing abdomen soft, good bowel sounds Procedures 11/10- cardiac cath 1. Unremarkable hemodynamics. 2. Mildly impaired left ventricular function. 3. Severe 3-vessel multivessel disease. A/P Assessment and Plan 62-year-old male with a history of coronary artery disease and 7 stents placed , history of cardiac arrest 2010, angina, pleurisy was sent by his ophthalmology Dr. Parsons for admission and clearance by cardiology and pulmonology. patient has detached left retina 3-4 weeks ago and needs emergent surgery to repair his retina. Detached left retina d/w Dr. Parsons today who requested re-consult to cards for cardiac clearance for local sedation for which pt now has been cleared. Awaiting recs from Dr. Parsons. Plan would be for retinal detachment sx soon coronary artery disease was 7 stents placed, history of cardiac arrest 2010, angina S/P cath- 3 V disease continue meds Cardiology ff - on Nitrol paste q 6 Vascular surgery consulted for CABG and recommends waiting and re-eval in 3- 4 weeks. 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 Ativan 0.5 mg every 8 hours p.o. as needed for anxiety. DVT prophylaxis SCDs/teds/Lovenox Discharge Planning Pt has been cleared by cardiology for local sedation for retinal detachment sx. Awaiting final recs from Marleni Leyva MD November 12, 2017 14:55
[2017-11-13] VITALS (7 sets, daily range): BP systolic 114–158; BP diastolic 62–86; PULSE 64–82; RESP 17–19; TEMP 97.4–98.7; O2SAT 94–98
[2017-11-13] MEDS: ACETAMINOPHEN/HYDROcodone 325 MG/10 MG TAB PO PRN (00:20)
[2017-11-13] MEDS: NITROGLYCERIN 2% OINT 1 GM PACKET TOPICAL SCH ×3 (05:52→22:11)
[2017-11-13] MEDS: SODIUM CHLOR 0.9% 1000 ML INJ 1,000 ML IV SCH ×2 (07:17→16:50)
[2017-11-13] MEDS: METOPROLOL TARTRATE 25 MG TAB PO SCH ×2 (08:39→21:11)
[2017-11-13] MEDS: DOCUSATE SODIUM 50 MG/SENNA 8.6 MG TAB PO SCH ×2 (08:39→21:11)
[2017-11-13] MEDS: SODIUM CHLORIDE 0.9% FLUSH 10 ML FLUSH IV FLUSH SCH ×2 (08:40→21:00)
[2017-11-13] MEDS: ASPIRIN 325 MG TAB PO SCH (08:44)
--- NOTE | 2017-11-13 09:23 | PD.CARD.PN ---
Subjective Subjective Remarks no angina on meds Objective Medications Current Medications Medications (Trade) Dose Ordered Sig/Zelalem Route Start Time Stop Time Status Last Admin (NS Flush) 2 ml UNSCH PRN IV FLUSH 11/07/17 10:30 (NS Flush) 2 ml BID IV FLUSH 11/07/17 21:00 11/13/17 08:40 (Tylenol) 650 mg Q4H PRN PO 11/07/17 10:30 (Zofran Inj) 4 mg Q6H PRN IVP 11/07/17 10:30 (Lovenox Inj) 40 mg Q24H SQ 11/07/17 12:00 Future Hold 11/08/17 15:33 (Narcan Inj) 0.4 mg UNSCH PRN IV PUSH 11/07/17 10:30 (Oriana-Colace) 1 tab BID PO 11/07/17 21:00 11/13/17 08:39 (Milk Of Magnesia Liq) 30 ml Q12H PRN PO 11/07/17 10:30 (Senokot) 17.2 mg Q12H PRN PO 11/07/17 10:30 (Dulcolax Supp) 10 mg DAILY PRN RECTAL 11/07/17 10:30 (Lactulose Liq) 30 ml DAILY PRN PO 11/07/17 10:30 (Aspirin) 325 mg DAILY PO 11/08/17 09:00 11/12/17 08:16 (Pill Splitter) 1 ea UNSCH PRN OTHER 11/07/17 11:00 (Ativan) 0.5 mg Q8H PRN PO 11/07/17 12:00 11/08/17 10:01 (Lopressor) 25 mg Q12HR PO 11/07/17 13:00 11/13/17 08:39 (Nitroglycerin 2% Oint) 1 inch Q8HR TOPICAL 11/07/17 14:00 11/13/17 05:52 (Morphine Inj) 2 mg Q4H PRN IV 11/07/17 20:30 ([place] 5-325 Mg) 1 tab Q4H PRN PO 11/07/17 19:45 11/11/17 22:31 ([place] 10-325 Mg) 1 tab Q4H PRN PO 11/07/17 19:45 11/13/17 00:20 Sodium Chloride 1,000 ml @ 100 mls/hr Q10H IV 11/09/17 13:17 11/14/17 13:16 11/09/17 23:45 (Aspirin) 325 mg HYDRAULIC DREDGE OPERATOR PO 11/09/17 13:30 11/13/17 13:29 (Benadryl) 50 mg HYDRAULIC DREDGE OPERATOR PO 11/09/17 13:30 11/13/17 13:29 (Valium) 5 mg HYDRAULIC DREDGE OPERATOR PO 11/09/17 13:30 11/13/17 13:29 Cefazolin Sodium 500 mg/Sodium Chloride 505 ml @ 0 mls/hr HY[employer]AUL[employer]EDGE OPERATOR IRRIGATION 11/10/17 10:30 11/17/17 10:29 Cefazolin Sodium/ Dextrose 50 ml @ 150 mls/hr HYDRAULIC DREDGE OPERATOR IV 11/10/17 10:30 11/17/17 10:29 (Lopressor) 12.5 mg HYDRAULIC DREDGE OPERATOR PO 11/10/17 10:30 11/17/17 10:29 (Hibiclens 4% Top Soln) 1 applic HYDRAULIC DREDGE OPERATOR TOPICAL 11/10/17 10:30 11/17/17 10:29 Insulin Human Regular 100 units/ Sodium Chloride 100 ml @ 3 mls/hr TITRATE PRN IV 11/10/17 10:30 11/17/17 10:29 (D50w (Vial) Inj) 50 ml UNSCH PRN IV PUSH 11/10/17 10:30 Papaverine HCl 60 mg/Nitroglycerin 100 mcg/Verapamil HCl 100 mg/Sodium Chloride 100 ml @ 0 mls/hr HYDRAULIC [employer]EDGE OPERATOR IRRIGATION 11/10/17 11:00 11/17/17 10:29 Vital Signs / I&O Vital Signs Date Time Temp Pulse Resp B/P (MAP) Pulse Ox O2 Delivery O2 Flow Rate FiO2 11/13/17 04:00 97.8 79 17 124/70 (88) 96 11/13/17 03:44 64 11/13/17 01:20 18 11/13/17 00:00 97.4 82 17 128/74 (92) 96 11/12/17 23:54 78 11/12/17 20:00 97.8 88 17 142/82 (102) 95 11/12/17 16:00 98.9 75 18 124/74 (91) 98 11/12/17 12:00 97.8 70 18 111/66 (81) 94 I/O 11/12/1718 18 11/13/1718 11/13/17 07:00 15:00 23:00 07:00 15:00 23:00 Intake Total 240 ml 720 ml 240 ml Balance 240 ml 720 ml 240 ml Intake Oral 240 ml 720 ml 240 ml # Voids 2 4 2 Physical Exam GENERAL: Well developed, well nourished. No acute distress. HEENT: Jugular venous pressure is normal. CHEST: Lungs clear to auscultation bilaterally. Unlabored respiratory effort. CARDIAC: Regular rate and rhythm without S3, S4, or murmur. ABDOMEN: Soft, nontender, no hepatosplenomegaly. Bowel sounds present. EXTREMITIES: No clubbing, cyanosis, or edema. right groin OK. Assessment and Plan Problem List: (1) History of pleurisy ICD Codes: Z87.09 - Personal history of other diseases of the respiratory system Status: Acute (2) Coronary artery disease ICD Codes: I25.10 - Atherosclerotic heart disease of [place] coronary artery without angina pectoris Status: Acute (3) Unstable angina pectoris ICD Codes: I20.0 - Unstable angina Assessment and Plan Stable for surgery. CABG after recovered from eye surgery. Risks discussed. I am going out of town - [facility] available prn - please call if questions. Problem Qualifiers (1) Coronary artery disease: Qualified Codes: I25.118 - Atherosclerotic heart disease of wiyot coronary artery with other forms of angina pectoris Salomon Virgen MD November 13, 2017 09:23
--- NOTE | 2017-11-13 11:23 | HHI.PR ---
Subjective Remarks Pt resting, starting to have some pain and will be requesting some pain med. no nausea or vomiting. Unsure when sx will be Objective Vitals Vital Signs Date Time Temp Pulse Resp B/P (MAP) Pulse Ox O2 Delivery O2 Flow Rate FiO2 11/13/17 08:00 98.2 72 18 144/80 (101) 98 11/13/17 04:00 97.8 79 17 124/70 (88) 96 11/13/17 03:44 64 11/13/17 01:20 18 11/13/17 00:00 97.4 82 17 128/74 (92) 96 11/12/17 23:54 78 11/12/17 20:00 97.8 88 17 142/82 (102) 95 11/12/17 16:00 98.9 75 18 124/74 (91) 98 11/12/17 12:00 97.8 70 18 111/66 (81) 94 I/O 11/12/17 11/12/17 11/12/17 11/13/17 11/13/17 11/13/17 07:00 15:00 23:00 07:00 15:00 23:00 Intake Total 240 ml 720 ml 240 ml Balance 240 ml 720 ml 240 ml Intake Oral 240 ml 720 ml 240 ml # Voids 2 4 2 Result Diagram: 11/10/17 0547 11/10/17 0547 Imaging Last Impressions Lower Extremity Ultrasound 11/10/17 0000 Signed Impressions: Service Date/Time: Friday, November 10, 2017 18:41 - CONCLUSION: Small caliber saphenous vessels, essentially nonvisualized beyond the mid thigh bilaterally Alejandro Alexandra MD Carotid Artery Ultrasound 11/10/17 0000 Signed Impressions: Service Date/Time: Friday, November 10, 2017 18:03 - CONCLUSION: No evidence of flow-limiting carotid stenosis. Alejandro Alexandra MD Chest X-Ray 11/07/17 1005 Signed Impressions: Service Date/Time: Tuesday, November 07, 2017 10:14 - CONCLUSION: 1. Mild basilar atelectasis. Tortuous aorta. No effusion or pneumothorax. Deyvi Brown MD Objective Remarks sleeping in bed but easily arousable. left eye- no eye patch in place CVS rrr w no murmurs lungs- clear w no wheezing abdomen soft, good bowel sounds Procedures 11/10- cardiac cath 1. Unremarkable hemodynamics. 2. Mildly impaired left ventricular function. 3. Severe 3-vessel multivessel disease. A/P Assessment and Plan 62-year-old male with a history of coronary artery disease and 7 stents placed , history of cardiac arrest 2010, angina, pleurisy was sent by his ophthalmology Dr. Parsons for admission and clearance by cardiology and pulmonology. patient has detached left retina 3-4 weeks ago and needs emergent surgery to repair his retina. Detached left retina d/w Dr. Parsons yesterday and notified him that pt has been cleared by cardiology to proceed w sx (retinal detachment sx) w local sedation. He told me he would call the OR to schedule sx. coronary artery disease was 7 stents placed, history of cardiac arrest 2010, angina S/P cath- 3 V disease continue meds Cardiology ff - on Nitrol paste q 6 Vascular surgery consulted for CABG and recommends waiting and re-eval in 3- 4 weeks. 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 Ativan 0.5 mg every 8 hours p.o. as needed for anxiety. DVT prophylaxis SCDs/teds/Lovenox Discharge Planning Pt has been cleared by cardiology for local sedation for retinal detachment sx. Awaiting final recs from Marleni Leyva MD November 13, 2017 11:22
[2017-11-13] MEDS: ACETAMINOPHEN/HYDROcodone 325 MG/5 MG TAB PO PRN ×3 (11:55→22:11)
[2017-11-14] VITALS: BP 127/74; PULSE 67; PULSE 71; RESP 15; TEMP 98.4; O2SAT 96
[2017-11-14] MEDS: SODIUM CHLOR 0.9% 1000 ML INJ 1,000 ML IV SCH (03:17)
[2017-11-14] MEDS: ACETAMINOPHEN/HYDROcodone 325 MG/5 MG TAB PO PRN ×2 (03:59→13:36)
[2017-11-14 04:00] VITALS: BP 129/74; PULSE 66; RESP 16; TEMP 98.4; O2SAT 96
[2017-11-14] MEDS: NITROGLYCERIN 2% OINT 1 GM PACKET TOPICAL SCH ×3 (06:27→22:44)
[2017-11-14] MEDS: SODIUM CHLORIDE 0.9% FLUSH 10 ML FLUSH IV FLUSH SCH ×2 (07:54→22:47)
[2017-11-14] MEDS: ASPIRIN 325 MG TAB PO SCH (07:55)
[2017-11-14] MEDS: METOPROLOL TARTRATE 25 MG TAB PO SCH ×2 (07:56→22:44)
[2017-11-14] MEDS: DOCUSATE SODIUM 50 MG/SENNA 8.6 MG TAB PO SCH ×2 (07:56→22:45)
[2017-11-14 08:00] VITALS: BP 121/73; PULSE 70; RESP 17; TEMP 97.8; O2SAT 96
--- NOTE | 2017-11-14 10:06 | HHI.PR ---
Subjective Remarks Nursing denies any deterioration since last night. Patient reports being anxious. He is requesting an advance pain medication and sedation prior to his surgery which I informed him will be handled appropriately. Objective Vital Signs Date Time Temp Pulse Resp B/P (MAP) Pulse Ox O2 Delivery O2 Flow Rate FiO2 11/14/17 08:00 97.8 70 17 121/73 (89) 96 11/14/17 04:00 98.4 66 16 129/74 (92) 96 11/14/17 00:00 67 11/14/17 00:00 98.4 71 15 127/74 (91) 96 11/13/17 20:00 98.7 79 18 158/86 (110) 97 11/13/17 16:00 98.2 75 19 147/74 (98) 95 11/13/17 12:00 98.7 72 17 114/62 (79) 94 I/O 11/13/17 11/13/17 11/13/17 11/14/17 11/14/17 11/14/17 07:00 15:00 23:00 07:00 15:00 23:00 Intake Total 240 ml 600 ml 450 ml Balance 240 ml 600 ml 450 ml Intake Oral 240 ml 600 ml 450 ml # Voids 2 5 3 Result Diagram: 11/10/17 0547 11/10/17 0547 Objective Remarks Extraocular motions intact, no obvious gross conjunctival abnormalities Heart sounds are regular rate and rhythm, no murmurs, unlabored breathing A/P Assessment and Plan 62-year-old male with a history of coronary artery disease and 7 stents placed , history of cardiac arrest 2010, angina, pleurisy was sent by his ophthalmology Dr. Parsons for admission and clearance by cardiology and pulmonology. patient has detached left retina 3-4 weeks ago and needs emergent surgery to repair his retina. Detached left retina Cleared by cardiology for local sedation only, anticipate OR today. Ophthalmology following coronary artery disease was 7 stents placed, history of cardiac arrest 2010, angina S/P cath- 3 V disease continue meds Cardiology ff - on Nitrol paste q 6 Vascular surgery consulted for CABG and recommends waiting and re-eval in 3- 4 weeks. 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 Ativan 0.5 mg every 8 hours p.o. as needed for anxiety. Viktor Rai MD November 14, 2017 10:06
[2017-11-14] MEDS ORDERED: PROPARACAINE HCL 0.5% OPHT SOLN 15 ML BTL LEFT EYE STA (11:12)
[2017-11-14] MEDS ORDERED: ATROPINE SULFATE 1% OPHT SOLN 2 ML BTL LEFT EYE STA (11:13)
[2017-11-14] MEDS ORDERED: PHENYLEPHRINE HCL 10% OPTH SOLN 5 ML BTL LEFT EYE STA (11:14)
[2017-11-14] MEDS ORDERED: CYCLOPENTOLATE HCL 1% OPHT SOLN 2 ML BTL LEFT EYE STA (11:14)
[2017-11-14 12:00] VITALS: BP 104/71; PULSE 89; RESP 19; TEMP 97.8; O2SAT 97
[2017-11-14] MEDS ORDERED: ONDANSETRON HCL 4 MG/2 ML VIAL IV PUSH ONE (12:00)
[2017-11-14] MEDS ORDERED: LIDOCAINE HCL 1% PF 5 ML SYRINGE OTHER ONE (12:00)
[2017-11-14] MEDS ORDERED: ePHEDrine/NS 25 MG/5 ML SYRINGE IV ONE (12:00)
[2017-11-14] MEDS ORDERED: GLYCOPYRROLATE 1 MG/5 ML SYRINGE IV PUSH ONE (12:00)
[2017-11-14] MEDS ORDERED: ROCURONIUM INJ 50 MG/5 ML SYRINGE IV PUSH ONE (12:00)
[2017-11-14] MEDS ORDERED: ceFAZolin INJ 1,000 MG VIAL IV ONE ×2 (12:00→18:19)
[2017-11-14] MEDS ORDERED: PROPOFOL 200 MG/20 ML AMP IV ONE (12:00)
[2017-11-14] MEDS ORDERED: PHENYLEPH/NS 1000 MCG/10 ML SYR IV ONE (12:00)
[2017-11-14] MEDS ORDERED: METOPROLOL TARTRATE 5 MG/5 ML VIAL IV ONE (12:00)
[2017-11-14] MEDS ORDERED: ESMOLOL HCL 100 MG/10 ML VIAL IV ONE (12:00)
[2017-11-14] MEDS ORDERED: SODIUM CHLORIDE 0.9% 20 ML VIAL IV ONE (12:00)
[2017-11-14] MEDS ORDERED: [UNRECOGNIZED DRUG - REMARK] IV SCH (12:45)
[2017-11-14] MEDS ORDERED: [UNRECOGNIZED DRUG - REMARK] LEFT EYE SCH (12:45)
[2017-11-14] MEDS ORDERED: ATROPINE SULFATE 1% OPHT SOLN 5 ML BTL LEFT EYE STA (13:08)
[2017-11-14] MEDS ORDERED: DEXAMETHASONE SOD PHOS 4 MG/ML VIAL ONE (13:44)
[2017-11-14] MEDS ORDERED: BALANCED SALT SOLN OPHT IRRIG 15 ML BTL ONE (13:44)
[2017-11-14] MEDS ORDERED: ceFAZolin INJ 1,000 MG VIAL ONE (13:44)
[2017-11-14] MEDS ORDERED: TRIAMCINOLONE ACETONIDE 40 MG/ML VIAL ONE (13:45)
[2017-11-14] MEDS ORDERED: EPINEPHrine HCL (1:1000) 1 MG/ML VIAL ONE (13:45)
[2017-11-14] MEDS ORDERED: TOBRAMYCIN/DEXAMETHASONE OPTH OINT 3.5 GM TUBE ONE (13:46)
[2017-11-14] MEDS ORDERED: fentaNYL CITRATE 250 MCG/5 ML AMP ONE (14:59)
[2017-11-14] MEDS ORDERED: NITROGLYCERIN INJ 5 ML ONE (15:00)
[2017-11-14] MEDS: PROPARACAINE HCL 0.5% OPHT SOLN 15 ML BTL LEFT EYE SCH ×2 (15:22→15:38)
[2017-11-14] MEDS: ATROPINE SULFATE 1% OPHT SOLN 2 ML BTL LEFT EYE SCH ×2 (15:22→15:38)
[2017-11-14] MEDS: CYCLOPENTOLATE HCL 1% OPHT SOLN 2 ML BTL LEFT EYE SCH ×2 (15:23→15:39)
[2017-11-14] MEDS: PHENYLEPHRINE HCL 10% OPTH SOLN 5 ML BTL LEFT EYE SCH ×2 (15:23→15:39)
[2017-11-14 17:12] VITALS: BP 130/81
[2017-11-14] MEDS ORDERED: SUGAMMADEX SODIUM 200 MG/2 ML VIAL IV PUSH ONE (18:06)
[2017-11-14] MEDS ORDERED: *morphine SULFATE 10 MG/ML PERIprocedure ONLY ONE ×2 (19:34→19:52)
[2017-11-14] MEDS ORDERED: *HYDROmorphone PF 0.5 MG/0.5 ML PERIprocedure ONLY ONE (19:58)
[2017-11-14] MEDS ORDERED: PROMETHAZINE HCL 25 MG TAB PO PRN (20:15)
[2017-11-14] MEDS ORDERED: DO NOT ADM ANY ANTICOAGULANT DRUGS PRN (20:30)
[2017-11-14] MEDS: LORazepam 0.5 MG TAB PO PRN (22:44)
[2017-11-14] MEDS: ACETAMINOPHEN/HYDROcodone 325 MG/10 MG TAB PO PRN (22:45)
[2017-11-14] MEDS: prednisoLONE ACETATE 1% OPHT SUSP 5 ML BTL LEFT EYE SCH (22:46)
[2017-11-14] MEDS: NEOMYCIN/POLYMYXIN/DEXAMETHASONE OPTH OINT 3.5 GM TUBE LEFT EYE SCH (22:46)
[2017-11-14] MEDS: KETOROLAC TROMETHAMINE 0.5% OPHT SOLN 5 ML BTL LEFT EYE SCH (22:46)
[2017-11-14] MEDS: MORPHINE SULFATE 4 MG/ML INJ IV PRN (23:58)
[2017-11-15] VITALS (8 sets, daily range): BP systolic 111–162; BP diastolic 58–78; PULSE 69–82; RESP 16–20; TEMP 97.3–98.9; O2SAT 94–97
[2017-11-15] MEDS: ACETAMINOPHEN/HYDROcodone 325 MG/10 MG TAB PO PRN ×4 (02:40→19:11)
[2017-11-15] MEDS: MORPHINE SULFATE 4 MG/ML INJ IV PRN ×4 (05:19→20:39)
[2017-11-15] MEDS: NITROGLYCERIN 2% OINT 1 GM PACKET TOPICAL SCH ×3 (06:41→22:38)
[2017-11-15] MEDS: ATROPINE SULFATE 1% OPHT SOLN 5 ML BTL LEFT EYE SCH ×3 (08:28→16:29)
[2017-11-15] MEDS: DOCUSATE SODIUM 50 MG/SENNA 8.6 MG TAB PO SCH ×2 (08:28→20:40)
[2017-11-15] MEDS: METOPROLOL TARTRATE 25 MG TAB PO SCH ×2 (08:28→20:40)
[2017-11-15] MEDS: ASPIRIN 325 MG TAB PO SCH ×2 (08:28→08:31)
[2017-11-15] MEDS: SODIUM CHLORIDE 0.9% FLUSH 10 ML FLUSH IV FLUSH SCH ×2 (08:29→20:39)
[2017-11-15] MEDS: KETOROLAC TROMETHAMINE 0.5% OPHT SOLN 5 ML BTL LEFT EYE SCH ×4 (08:29→20:44)
[2017-11-15] MEDS: NEOMYCIN/POLYMYXIN/DEXAMETHASONE OPTH OINT 3.5 GM TUBE LEFT EYE SCH ×2 (08:29→20:44)
[2017-11-15] MEDS: prednisoLONE ACETATE 1% OPHT SUSP 5 ML BTL LEFT EYE SCH ×4 (08:29→20:43)
--- NOTE | 2017-11-15 08:29 | HHI.PR ---
Subjective Remarks This is a pleasant 62 y/o Male with CAD, status post PCI and seven stents placement, history of Cardiac Arrest 2010, Pleurisy, status post retinal detachment status post Surgical repair, patient in prone position, having some nausea, started on IV fluids by Ophthalmology specialist. no diarrhea. Objective Vital Signs Date Time Temp Pulse Resp B/P (MAP) Pulse Ox O2 Delivery O2 Flow Rate FiO2 11/15/17 05:54 18 11/15/17 04:00 98.9 82 20 111/58 (75) 97 11/15/17 03:41 18 11/15/17 00:00 72 11/15/17 00:00 97.7 75 20 115/60 (78) 96 11/14/17 23:02 99 Room Air 11/14/17 21:00 100 Nasal Cannula 11/14/17 20:28 18 11/14/17 20:20 18 11/14/17 20:20 18 11/14/17 20:00 98.2 72 11 150/98 (115) 97 Nasal Cannula 3 11/14/17 19:43 72 19 120/70 (87) 98 Nasal Cannula 3 11/14/17 19:30 74 19 135/78 (97) 98 Nasal Cannula 3 11/14/17 19:24 65 10 130/76 (94) 98 Nasal Cannula 3 11/14/17 19:18 98.0 74 15 134/78 (96) 95 Nasal Cannula 3 11/14/17 17:12 130/81 (97) 11/14/17 16:14 69 121/76 11/14/17 12:00 97.8 89 19 104/71 (82) 97 I/O 11/14/17 11/14/17 11/14/17 11/15/17 11/15/17 11/15/17 07:00 15:00 23:00 07:00 15:00 23:00 Intake Total 450 ml 800 ml 600 ml Output Total 0 ml 450 ml Balance 450 ml 800 ml 150 ml Intake Oral 450 ml 600 ml Other 800 ml Output Urine Total 450 ml Estimated Blood Loss 0 ml # Voids 3 2 Imaging Last Impressions Lower Extremity Ultrasound 11/10/17 0000 Signed Impressions: Service Date/Time: Friday, November 10, 2017 18:41 - CONCLUSION: Small caliber saphenous vessels, essentially nonvisualized beyond the mid thigh bilaterally Alejandro Alexandra MD Carotid Artery Ultrasound 11/10/17 0000 Signed Impressions: Service Date/Time: Friday, November 10, 2017 18:03 - CONCLUSION: No evidence of flow-limiting carotid stenosis. Alejandro Alexandra MD Chest X-Ray 11/07/17 1005 Signed Impressions: Service Date/Time: Tuesday, November 07, 2017 10:14 - CONCLUSION: 1. Mild basilar atelectasis. Tortuous aorta. No effusion or pneumothorax. Deyvi Brown MD Other Results Laboratory Tests Test 11/07/17 10:13 11/08/17 03:16 11/10/17 05:47 11/10/17 09:46 Prothrombin Time 10.1 SEC Prothromb Time International Ratio 1.0 RATIO Activated Partial Thromboplast Time 22.9 SEC Blood Urea Nitrogen 14 MG/DL 16 MG/DL Creatinine 0.81 MG/DL 0.80 MG/DL Random Glucose 87 MG/DL 87 MG/DL Total Protein 6.8 GM/DL Albumin 3.6 GM/DL Calcium Level 8.4 MG/DL 8.5 MG/DL Alkaline Phosphatase 70 U/L Aspartate Amino Transf (AST/SGOT) 13 U/L Alanine Aminotransferase (ALT/SGPT) 19 U/L Total Bilirubin 0.3 MG/DL Sodium Level 143 MEQ/L 141 MEQ/L Potassium Level 3.6 MEQ/L 4.1 MEQ/L Chloride Level 107 MEQ/L 106 MEQ/L Carbon Dioxide Level 27.3 MEQ/L 25.6 MEQ/L White Blood Count 6.1 TH/MM3 Red Blood Count 5.22 MIL/MM3 Hemoglobin 15.3 GM/DL Hematocrit 43.6 % Mean Corpuscular Volume 83.6 FL Mean Corpuscular Hemoglobin 29.3 PG Mean Corpuscular Hemoglobin Concent 35.0 % Red Cell Distribution Width 14.5 % Platelet Count 98 TH/MM3 Mean Platelet Volume 8.8 FL Neutrophils (%) (Auto) 61.8 % Lymphocytes (%) (Auto) 25.1 % Monocytes (%) (Auto) 10.7 % Eosinophils (%) (Auto) 2.2 % Basophils (%) (Auto) 0.2 % Neutrophils # (Auto) 3.8 TH/MM3 Lymphocytes # (Auto) 1.5 TH/MM3 Monocytes # (Auto) 0.6 TH/MM3 Eosinophils # (Auto) 0.1 TH/MM3 Basophils # (Auto) 0.0 TH/MM3 CBC Comment AUTO DIFF Differential Total Cells Counted 100 Neutrophils % (Manual) 58 % Band Neutrophils % 2 % Lymphocytes % 25 % Monocytes % 11 % Eosinophils % 4 % Neutrophils # (Manual) 3.7 TH/MM3 Differential Comment FINAL DIFF MANUAL Platelet Estimate LOW Platelet Morphology Comment NORMAL Red Cell Morphology Comment NORMAL Anion Gap 9 MEQ/L Estimat Glomerular Filtration Rate 98 ML/MIN Hemoglobin A1c 5.6 % Troponin I LESS THAN 0.02 NG/ML Triglycerides Level 141 MG/DL Cholesterol Level 144 MG/DL LDL Cholesterol 80 MG/DL HDL Cholesterol 35.7 MG/DL Cholesterol/HDL Ratio 4.03 RATIO Urine Color LIGHT-YELLOW Urine Turbidity CLEAR Urine pH 5.5 Urine Specific [place] 1.042 Urine Protein NEG mg/dL Urine Glucose (UA) NEG mg/dL Urine Ketones NEG mg/dL Urine Occult Blood NEG Urine Nitrite NEG Urine Bilirubin NEG Urine Urobilinogen LESS THAN 2.0 MG/DL Urine Leukocyte Esterase NEG Urine RBC LESS THAN 1 /hpf Urine WBC LESS THAN 1 /hpf Medications and IVs Current Medications Medications (Trade) Dose Ordered Sig/Zelalem Route Start Time Stop Time Status Last Admin (NS Flush) 2 ml UNSCH PRN IV FLUSH 11/07/17 10:30 (NS Flush) 2 ml BID IV FLUSH 11/07/17 21:00 11/14/17 22:47 (Tylenol) 650 mg Q4H PRN PO 11/07/17 10:30 (Zofran Inj) 4 mg Q6H PRN IVP 11/07/17 10:30 (Lovenox Inj) 40 mg Q24H SQ 11/07/17 12:00 Future Hold 11/08/17 15:33 (Narcan Inj) 0.4 mg UNSCH PRN IV PUSH 11/07/17 10:30 ([place]riana-Colace) 1 tab BID PO 11/07/17 21:00 11/14/17 22:45 (Milk Of Magnesia Liq) 30 ml Q12H PRN PO 11/07/17 10:30 (Senokot) 17.2 mg Q12H PRN PO 11/07/17 10:30 (Dulcolax Supp) 10 mg DAILY PRN RECTAL 11/07/17 10:30 (Lactulose Liq) 30 ml DAILY PRN PO 11/07/17 10:30 (Aspirin) 325 mg DAILY PO 11/08/17 09:00 11/12/17 08:16 (Pill Splitter) 1 ea UNSCH PRN OTHER 11/07/17 11:00 (Ativan) 0.5 mg Q8H PRN PO 11/07/17 12:00 11/14/17 22:44 (Lopressor) 25 mg Q12HR PO 11/07/17 13:00 11/14/17 22:44 (Nitroglycerin 2% Oint) 1 inch Q8HR TOPICAL 11/07/17 14:00 11/15/17 06:41 (Morphine Inj) 2 mg Q4H PRN IV 11/07/17 20:30 11/15/17 05:19 ([place] 5-325 Mg) 1 tab Q4H PRN PO 11/07/17 19:45 11/14/17 13:36 ([place] 10-325 Mg) 1 tab Q4H PRN PO 11/07/17 19:45 11/15/17 06:37 Cefazolin Sodium 500 mg/Sodium Chloride 505 ml @ 0 mls/hr [employer] PUNCH [employer] COILER OPERATOR IRRIGATION 11/10/17 10:30 11/17/17 10:29 Cefazolin Sodium/ Dextrose 50 ml @ 150 mls/hr HO[employer] PUNCH AND COILER OPERATOR IV 11/10/17 10:30 11/17/17 10:29 (Lopressor) 12.5 mg HO[employer] P[employer]CH AND COILER OPERATOR PO 11/10/17 10:30 11/17/17 10:29 (Hibiclens 4% Top Soln) 1 applic [employer] P[employer]CH AND COILER OPERATOR TOPICAL 11/10/17 10:30 11/17/17 10:29 Insulin Human Regular 100 units/ Sodium Chloride 100 ml @ 3 mls/hr TITRATE PRN IV 11/10/17 10:30 11/17/17 10:29 (D50w (Vial) Inj) 50 ml UNSCH PRN IV PUSH 11/10/17 10:30 Papaverine HCl 60 mg/Nitroglycerin 100 mcg/Verapamil HCl 100 mg/Sodium Chloride 100 ml @ 0 mls/hr [employer]CH [employer]ILER OPERATOR IRRIGATION 11/10/17 11:00 11/17/17 10:29 (Phenergan) 25 mg Q4H PRN PO 11/14/17 20:15 (Isopto Atropine 1% Opth Soln) 1 drop TID LEFT EYE 11/15/17 09:00 (Pred Forte 1% Opth Susp) 1 drop QID LEFT EYE 11/14/17 21:00 11/14/17 22:46 (Acular 0.5% Opth Soln) 1 drop QID LEFT EYE 11/14/17 21:00 11/14/17 22:46 (Maxitrol Opth Oint) 1 applic BID LEFT EYE 11/14/17 21:00 11/14/17 22:46 ([facility] [place] Nursing Information) ALL NURSING DEPARTME... UNSCH PRN .XX 11/14/17 20:30 11/15/17 20:29 A/P Assessment and Plan 62-year-old male with a history of coronary artery disease and 7 stents placed , history of cardiac arrest 2010, angina, pleurisy was sent by his ophthalmology Dr. aPrsons for admission and clearance by cardiology and pulmonology. patient has detached left retina 3-4 weeks ago and needs emergent surgery to repair his retina. Detached left retina Cleared by cardiology for local sedation only, status post repair. coronary artery disease was 7 stents placed, history of cardiac arrest 2010, angina S/P cath- 3 V disease continue meds Cardiology ff - on Nitrol paste q 6 Vascular surgery consulted for CABG and recommends waiting and re-eval in 3- 4 weeks. 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 Ativan 0.5 mg every 8 hours p.o. as needed for anxiety. Nausea and vomit, continue PPIs and Zofran Discharge Planning Awaiting for Ophthalmology specialist clearance for discharge. Pramod Warner MD November 15, 2017 08:29
[2017-11-15] MEDS: SUCRALFATE 1 GM TAB PO SCH ×3 (12:08→20:40)
[2017-11-15] MEDS: PANTOPRAZOLE SOD 40 MG DELAYED RELEASE TAB PO SCH (12:08)
[2017-11-15] MEDS ORDERED: PT:SIMBRINZA OPTH SOL LEFT EYE SCH (16:15)
[2017-11-15] MEDS: SODIUM CHLOR 0.9% 1000 ML INJ 1,000 ML IV SCH (16:28)
[2017-11-15] MEDS: LATANOPROST 0.005% OPHT SOLN 2.5 ML BTL LEFT EYE SCH (16:44)
[2017-11-15] MEDS: BRIMONIDINE TARTRATE 0.2% OPHT SOLN 5 ML BTL LEFT EYE SCH ×2 (17:40→17:42)
[2017-11-15] MEDS: DORZOLAMIDE 2% OPTH SOLN 200 DROP/10 ML BTLO LEFT EYE SCH ×2 (17:40→17:42)
[2017-11-16] VITALS (9 sets, daily range): BP systolic 107–141; BP diastolic 57–85; PULSE 61–74; RESP 16–18; TEMP 97.6–98.7; O2SAT 96–98
[2017-11-16] MEDS: ACETAMINOPHEN/HYDROcodone 325 MG/10 MG TAB PO PRN ×4 (01:54→23:35)
[2017-11-16] MEDS: MORPHINE SULFATE 4 MG/ML INJ IV PRN ×4 (04:11→21:45)
[2017-11-16] MEDS: NITROGLYCERIN 2% OINT 1 GM PACKET TOPICAL SCH ×3 (06:07→21:44)
[2017-11-16] MEDS: SUCRALFATE 1 GM TAB PO SCH ×4 (08:15→20:13)
[2017-11-16] MEDS: ASPIRIN 325 MG TAB PO SCH (08:15)
[2017-11-16] MEDS: METOPROLOL TARTRATE 25 MG TAB PO SCH ×2 (08:15→20:13)
[2017-11-16] MEDS: DOCUSATE SODIUM 50 MG/SENNA 8.6 MG TAB PO SCH ×2 (08:15→20:13)
[2017-11-16] MEDS: PANTOPRAZOLE SOD 40 MG DELAYED RELEASE TAB PO SCH (08:16)
[2017-11-16] MEDS: SODIUM CHLORIDE 0.9% FLUSH 10 ML FLUSH IV FLUSH SCH ×2 (08:16→20:18)
[2017-11-16] MEDS: LATANOPROST 0.005% OPHT SOLN 2.5 ML BTL LEFT EYE SCH (08:17)
[2017-11-16] MEDS: KETOROLAC TROMETHAMINE 0.5% OPHT SOLN 5 ML BTL LEFT EYE SCH ×4 (08:17→20:13)
[2017-11-16] MEDS: ATROPINE SULFATE 1% OPHT SOLN 5 ML BTL LEFT EYE SCH ×3 (08:17→17:30)
[2017-11-16] MEDS: BRIMONIDINE TARTRATE 0.2% OPHT SOLN 5 ML BTL LEFT EYE SCH ×3 (08:17→17:30)
[2017-11-16] MEDS: prednisoLONE ACETATE 1% OPHT SUSP 5 ML BTL LEFT EYE SCH ×4 (08:17→20:13)
[2017-11-16] MEDS: DORZOLAMIDE 2% OPTH SOLN 200 DROP/10 ML BTLO LEFT EYE SCH ×3 (08:17→17:30)
[2017-11-16] MEDS: NEOMYCIN/POLYMYXIN/DEXAMETHASONE OPTH OINT 3.5 GM TUBE LEFT EYE SCH ×2 (08:17→20:13)
[2017-11-16] MEDS: SODIUM CHLOR 0.9% 1000 ML INJ 1,000 ML IV SCH ×4 (08:18→20:15)
--- NOTE | 2017-11-16 10:04 | HHI.PR ---
Subjective Remarks This is a pleasant 62 y/o Male with CAD, status post PCI and seven stents placement, history of Cardiac Arrest 2010, Pleurisy, status post retinal detachment status post Surgical repair. 11/16: Seen in his bedroom, in sitting position, improving his Nausea and vomit, no diarrhea, discussed with nurse Miss Flores. no new issues. continue PPIs, Carafate, today will get re evaluation of Intraocular pressure by Ophthalmology, decreased IV fluids. Objective Vital Signs Date Time Temp Pulse Resp B/P (MAP) Pulse Ox O2 Delivery O2 Flow Rate FiO2 11/16/17 08:00 98.5 66 16 108/58 (75) 96 11/16/17 04:00 97.6 66 18 121/57 (78) 98 11/16/17 03:11 61 11/16/17 00:00 98.2 65 18 107/58 (74) 97 11/15/17 23:33 69 11/15/17 20:00 98.2 74 18 147/78 (101) 97 11/15/17 19:16 69 11/15/17 16:00 97.3 70 16 119/64 (82) 94 11/15/17 12:00 98.3 71 17 162/72 (102) 97 I/O 11/15/17 11/15/17 11/15/17 11/16/17 11/16/17 11/16/17 07:00 15:00 23:00 07:00 15:00 23:00 Intake Total 600 ml 386 ml 1480 ml Output Total 450 ml 850 ml 1200 ml Balance 150 ml -464 ml 280 ml Intake Oral 600 ml 0 ml 480 ml IV Total 386 ml 1000 ml Output Urine Total 450 ml 850 ml 1200 ml # Voids 2 # Bowel Movements 0 Imaging Last Impressions Lower Extremity Ultrasound 11/10/17 0000 Signed Impressions: Service Date/Time: Friday, November 10, 2017 18:41 - CONCLUSION: Small caliber saphenous vessels, essentially nonvisualized beyond the mid thigh bilaterally Alejandro Alexandra MD Carotid Artery Ultrasound 11/10/17 0000 Signed Impressions: Service Date/Time: Friday, November 10, 2017 18:03 - CONCLUSION: No evidence of flow-limiting carotid stenosis. Alejandro Alexandra MD Chest X-Ray 11/07/17 1005 Signed Impressions: Service Date/Time: Tuesday, November 07, 2017 10:14 - CONCLUSION: 1. Mild basilar atelectasis. Tortuous aorta. No effusion or pneumothorax. Deyvi Brown MD Procedures Left Eye retinal detachment repair. Other Results Laboratory Tests Test 11/07/17 10:13 11/08/17 03:16 11/10/17 05:47 11/10/17 09:46 Prothrombin Time 10.1 SEC Prothromb Time International Ratio 1.0 RATIO Activated Partial Thromboplast Time 22.9 SEC Blood Urea Nitrogen 14 MG/DL 16 MG/DL Creatinine 0.81 MG/DL 0.80 MG/DL Random Glucose 87 MG/DL 87 MG/DL Total Protein 6.8 GM/DL Albumin 3.6 GM/DL Calcium Level 8.4 MG/DL 8.5 MG/DL Alkaline Phosphatase 70 U/L Aspartate Amino Transf (AST/SGOT) 13 U/L Alanine Aminotransferase (ALT/SGPT) 19 U/L Total Bilirubin 0.3 MG/DL Sodium Level 143 MEQ/L 141 MEQ/L Potassium Level 3.6 MEQ/L 4.1 MEQ/L Chloride Level 107 MEQ/L 106 MEQ/L Carbon Dioxide Level 27.3 MEQ/L 25.6 MEQ/L White Blood Count 6.1 TH/MM3 Red Blood Count 5.22 MIL/MM3 Hemoglobin 15.3 GM/DL Hematocrit 43.6 % Mean Corpuscular Volume 83.6 FL Mean Corpuscular Hemoglobin 29.3 PG Mean Corpuscular Hemoglobin Concent 35.0 % Red Cell Distribution Width 14.5 % Platelet Count 98 TH/MM3 Mean Platelet Volume 8.8 FL Neutrophils (%) (Auto) 61.8 % Lymphocytes (%) (Auto) 25.1 % Monocytes (%) (Auto) 10.7 % Eosinophils (%) (Auto) 2.2 % Basophils (%) (Auto) 0.2 % Neutrophils # (Auto) 3.8 TH/MM3 Lymphocytes # (Auto) 1.5 TH/MM3 Monocytes # (Auto) 0.6 TH/MM3 Eosinophils # (Auto) 0.1 TH/MM3 Basophils # (Auto) 0.0 TH/MM3 CBC Comment AUTO DIFF Differential Total Cells Counted 100 Neutrophils % (Manual) 58 % Band Neutrophils % 2 % Lymphocytes % 25 % Monocytes % 11 % Eosinophils % 4 % Neutrophils # (Manual) 3.7 TH/MM3 Differential Comment FINAL DIFF MANUAL Platelet Estimate LOW Platelet Morphology Comment NORMAL Red Cell Morphology Comment NORMAL Anion Gap 9 MEQ/L Estimat Glomerular Filtration Rate 98 ML/MIN Hemoglobin A1c 5.6 % Troponin I LESS THAN 0.02 NG/ML Triglycerides Level 141 MG/DL Cholesterol Level 144 MG/DL LDL Cholesterol 80 MG/DL HDL Cholesterol 35.7 MG/DL Cholesterol/HDL Ratio 4.03 RATIO Urine Color LIGHT-YELLOW Urine Turbidity CLEAR Urine pH 5.5 Urine Specific [place] 1.042 Urine Protein NEG mg/dL Urine Glucose (UA) NEG mg/dL Urine Ketones NEG mg/dL Urine Occult Blood NEG Urine Nitrite NEG Urine Bilirubin NEG Urine Urobilinogen LESS THAN 2.0 MG/DL Urine Leukocyte Esterase NEG Urine RBC LESS THAN 1 /hpf Urine WBC LESS THAN 1 /hpf Objective Remarks GENERAL: No acute distress. SKIN: Warm and dry. HEAD: Atraumatic. Normocephalic. EYES: Left eye dressed. ENT: No nasal bleeding or discharge. Mucous membranes pink and moist. NECK: Trachea midline. No JVD. CARDIOVASCULAR: Regular rate and rhythm. RESPIRATORY: No accessory muscle use. Clear to auscultation. Breath sounds equal bilaterally. GASTROINTESTINAL: Abdomen soft, non-tender, nondistended. Hepatic and splenic margins not palpable. MUSCULOSKELETAL: Extremities without clubbing, cyanosis, or edema. No obvious deformities. NEUROLOGICAL: Awake and alert. No obvious cranial nerve deficits. Motor grossly within normal limits. Five out of 5 muscle strength in the arms and legs. Normal speech. PSYCHIATRIC: Appropriate mood and affect; insight and judgment normal. Medications and IVs Current Medications Medications (Trade) Dose Ordered Sig/Zelalem Route Start Time Stop Time Status Last Admin (NS Flush) 2 ml UNSCH PRN IV FLUSH 11/07/17 10:30 (NS Flush) 2 ml BID IV FLUSH 11/07/17 21:00 11/15/17 20:39 (Tylenol) 650 mg Q4H PRN PO 11/07/17 10:30 (Zofran Inj) 4 mg Q6H PRN IVP 11/07/17 10:30 11/15/17 17:40 (Lovenox Inj) 40 mg Q24H SQ 11/07/17 12:00 Future Hold 11/08/17 15:33 (Narcan Inj) 0.4 mg UNSCH PRN IV PUSH 11/07/17 10:30 ([place]ana-Colace) 1 tab BID PO 11/07/17 21:00 11/16/17 08:15 (Milk Of Magnesia Liq) 30 ml Q12H PRN PO 11/07/17 10:30 (Senokot) 17.2 mg Q12H PRN PO 11/07/17 10:30 (Dulcolax Supp) 10 mg DAILY PRN RECTAL 11/07/17 10:30 (Lactulose Liq) 30 ml DAILY PRN PO 11/07/17 10:30 (Aspirin) 325 mg DAILY PO 11/08/17 09:00 11/12/17 08:16 (Pill Splitter) 1 ea UNSCH PRN OTHER 11/07/17 11:00 (Ativan) 0.5 mg Q8H PRN PO 11/07/17 12:00 11/14/17 22:44 (Lopressor) 25 mg Q12HR PO 11/07/17 13:00 11/16/17 08:15 (Nitroglycerin 2% Oint) 1 inch Q8HR TOPICAL 11/07/17 14:00 11/16/17 06:07 (Morphine Inj) 2 mg Q4H PRN IV 11/07/17 20:30 11/16/17 04:11 ([place] 5-325 Mg) 1 tab Q4H PRN PO 11/07/17 19:45 11/14/17 13:36 ([place] 10-325 Mg) 1 tab Q4H PRN PO 11/07/17 19:45 11/16/17 01:54 Cefazolin Sodium 500 mg/Sodium Chloride 505 ml @ 0 mls/hr SERVICE ORDER TAKER IRRIGATION 11/10/17 10:30 11/17/17 10:29 Cefazolin Sodium/ Dextrose 50 ml @ 150 mls/hr SERVICE ORDER TAKER IV 11/10/17 10:30 11/17/17 10:29 (Lopressor) 12.5 mg SERVICE ORDER TAKER PO 11/10/17 10:30 11/17/17 10:29 (Hibiclens 4% Top Soln) 1 applic SERVICE ORDER TAKER TOPICAL 11/10/17 10:30 11/17/17 10:29 Insulin Human Regular 100 units/ Sodium Chloride 100 ml @ 3 mls/hr TITRATE PRN IV 11/10/17 10:30 11/17/17 10:29 (D50w (Vial) Inj) 50 ml UNSCH PRN IV PUSH 11/10/17 10:30 Papaverine HCl 60 mg/Nitroglycerin 100 mcg/Verapamil HCl 100 mg/Sodium Chloride 100 ml @ 0 mls/hr SERVICE ORDER TAKER IRRIGATION 11/10/17 11:00 11/17/17 10:29 (Phenergan) 25 mg Q4H PRN PO 11/14/17 20:15 (Isopto Atropine 1% Opth Soln) 1 drop TID LEFT EYE 11/15/17 09:00 11/16/17 08:17 (Pred Forte 1% Opth Susp) 1 drop QID LEFT EYE 11/14/17 21:00 11/16/17 08:17 (Acular 0.5% Opth Soln) 1 drop QID LEFT EYE 11/14/17 21:00 11/16/17 08:17 (Maxitrol Opth Oint) 1 applic BID LEFT EYE 11/14/17 21:00 11/16/17 08:17 (Protonix) 40 mg DAILY PO 11/15/17 12:00 11/16/17 08:16 (Carafate) 1 gm ACHS PO 11/15/17 12:00 11/16/17 08:15 (Xalatan 0.005% Opth Soln) 1 drop DAILY LEFT EYE 11/15/17 16:00 11/16/17 08:17 Sodium Chloride 1,000 ml @ 125 mls/hr Q8H IV 11/15/17 16:00 11/16/17 08:18 (Trusopt 2% Opth Soln) 1 drop TID LEFT EYE 11/15/17 17:00 11/16/17 08:17 (Alphagan 0.2% Opth Soln) 1 drop TID LEFT EYE 11/15/17 17:00 11/16/17 08:17 A/P Assessment and Plan 62-year-old male with a history of coronary artery disease and 7 stents placed , history of cardiac arrest 2010, angina, pleurisy was sent by his ophthalmology Dr. Parsons for admission and clearance by cardiology and pulmonology. patient has detached left retina 3-4 weeks ago and needs emergent surgery to repair his retina. Detached left retina Cleared by cardiology for local sedation only, status post repair. today will have again intraocular pressure. coronary artery disease was 7 stents placed, history of cardiac arrest 2010, angina S/P cath- 3 V disease continue meds Cardiology ff - on Nitrol paste q 6 Vascular surgery consulted for CABG and recommends waiting and re-eval in 3- 4 weeks. 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 Ativan 0.5 mg every 8 hours p.o. as needed for anxiety. Nausea and vomit, continue PPIs and Zofran, Carafate. Discharge Planning Awaiting for Ophthalmology specialist clearance for discharge. Pramod Warner MD November 16, 2017 10:04
[2017-11-16] MEDS ORDERED: SUCRALFATE 1 GM TAB PO SCH (12:00)
[2017-11-16] MEDS: CIPROFLOXACIN OPTH 0.3% LEFT EYE SCH ×2 (17:27→20:18)
[2017-11-16] MEDS ORDERED: CIPROFLOXACIN 0.3% OPTH SOLN 2.5 ML BTL LEFT EYE SCH (18:00)
[2017-11-17] VITALS: BP 114/55; PULSE 74; RESP 18; TEMP 97.6; O2SAT 94
[2017-11-17 04:00] VITALS: BP 162/81; PULSE 73; RESP 20; TEMP 98.4; O2SAT 93
[2017-11-17] MEDS: ACETAMINOPHEN/HYDROcodone 325 MG/10 MG TAB PO PRN ×3 (04:48→21:57)
[2017-11-17] MEDS: LORazepam 0.5 MG TAB PO PRN (05:00)
[2017-11-17] MEDS: NITROGLYCERIN 2% OINT 1 GM PACKET TOPICAL SCH ×3 (06:20→22:01)
[2017-11-17 08:00] VITALS: BP 116/63; PULSE 60; RESP 16; TEMP 97.7; O2SAT 98
--- NOTE | 2017-11-17 08:21 | HHI.PR ---
Subjective Remarks This is a pleasant 62 y/o Male with CAD, status post PCI and seven stents placement, history of Cardiac Arrest 2010, Pleurisy, status post retinal detachment status post Surgical repair. 11/16: Seen in his bedroom, in sitting position, discussed with nurse Miss Flores. no new issues. continue PPIs, Carafate, today will get re evaluation of Intraocular pressure by Ophthalmology, decreased IV fluids. 11/17: Stable awaiting for final recommendations by Ophthalmology, as per patient he states he has his left eye with worsening edema. no nausea, vomit or diarrhea. Objective Vital Signs Date Time Temp Pulse Resp B/P (MAP) Pulse Ox O2 Delivery O2 Flow Rate FiO2 11/17/17 04:00 98.4 73 20 162/81 (108) 93 11/17/17 00:00 97.6 74 18 114/55 (74) 94 11/16/17 23:50 66 11/16/17 20:00 98.7 74 18 141/85 (103) 98 11/16/17 19:48 68 11/16/17 16:00 98.2 70 16 139/65 (89) 96 11/16/17 12:00 98.1 72 17 140/70 (93) 96 I/O 11/16/17 11/16/17 11/16/17 11/17/17 11/17/17 11/17/17 07:00 15:00 23:00 07:00 15:00 23:00 Intake Total 1480 ml 1800 ml 838 ml Output Total 1200 ml 900 ml Balance 280 ml 900 ml 838 ml Intake Oral 480 ml 800 ml IV Total 1000 ml 1000 ml 838 ml Output Urine Total 1200 ml 900 ml # Bowel Movements 0 Imaging Last Impressions Lower Extremity Ultrasound 11/10/17 0000 Signed Impressions: Service Date/Time: Friday, November 10, 2017 18:41 - CONCLUSION: Small caliber saphenous vessels, essentially nonvisualized beyond the mid thigh bilaterally Alejandro Alexandra MD Carotid Artery Ultrasound 11/10/17 0000 Signed Impressions: Service Date/Time: Friday, November 10, 2017 18:03 - CONCLUSION: No evidence of flow-limiting carotid stenosis. Alejandro Alexandra MD Chest X-Ray 11/07/17 1005 Signed Impressions: Service Date/Time: Tuesday, November 07, 2017 10:14 - CONCLUSION: 1. Mild basilar atelectasis. Tortuous aorta. No effusion or pneumothorax. Deyvi Brown MD Procedures Left Eye retinal detachment repair. Other Results Laboratory Tests Test 11/07/17 10:13 11/08/17 03:16 11/10/17 05:47 11/10/17 09:46 Prothrombin Time 10.1 SEC Prothromb Time International Ratio 1.0 RATIO Activated Partial Thromboplast Time 22.9 SEC Blood Urea Nitrogen 14 MG/DL 16 MG/DL Creatinine 0.81 MG/DL 0.80 MG/DL Random Glucose 87 MG/DL 87 MG/DL Total Protein 6.8 GM/DL Albumin 3.6 GM/DL Calcium Level 8.4 MG/DL 8.5 MG/DL Alkaline Phosphatase 70 U/L Aspartate Amino Transf (AST/SGOT) 13 U/L Alanine Aminotransferase (ALT/SGPT) 19 U/L Total Bilirubin 0.3 MG/DL Sodium Level 143 MEQ/L 141 MEQ/L Potassium Level 3.6 MEQ/L 4.1 MEQ/L Chloride Level 107 MEQ/L 106 MEQ/L Carbon Dioxide Level 27.3 MEQ/L 25.6 MEQ/L White Blood Count 6.1 TH/MM3 Red Blood Count 5.22 MIL/MM3 Hemoglobin 15.3 GM/DL Hematocrit 43.6 % Mean Corpuscular Volume 83.6 FL Mean Corpuscular Hemoglobin 29.3 PG Mean Corpuscular Hemoglobin Concent 35.0 % Red Cell Distribution Width 14.5 % Platelet Count 98 TH/MM3 Mean Platelet Volume 8.8 FL Neutrophils (%) (Auto) 61.8 % Lymphocytes (%) (Auto) 25.1 % Monocytes (%) (Auto) 10.7 % Eosinophils (%) (Auto) 2.2 % Basophils (%) (Auto) 0.2 % Neutrophils # (Auto) 3.8 TH/MM3 Lymphocytes # (Auto) 1.5 TH/MM3 Monocytes # (Auto) 0.6 TH/MM3 Eosinophils # (Auto) 0.1 TH/MM3 Basophils # (Auto) 0.0 TH/MM3 CBC Comment AUTO DIFF Differential Total Cells Counted 100 Neutrophils % (Manual) 58 % Band Neutrophils % 2 % Lymphocytes % 25 % Monocytes % 11 % Eosinophils % 4 % Neutrophils # (Manual) 3.7 TH/MM3 Differential Comment FINAL DIFF MANUAL Platelet Estimate LOW Platelet Morphology Comment NORMAL Red Cell Morphology Comment NORMAL Anion Gap 9 MEQ/L Estimat Glomerular Filtration Rate 98 ML/MIN Hemoglobin A1c 5.6 % Troponin I LESS THAN 0.02 NG/ML Triglycerides Level 141 MG/DL Cholesterol Level 144 MG/DL LDL Cholesterol 80 MG/DL HDL Cholesterol 35.7 MG/DL Cholesterol/HDL Ratio 4.03 RATIO Urine Color LIGHT-YELLOW Urine Turbidity CLEAR Urine pH 5.5 Urine Specific [place] 1.042 Urine Protein NEG mg/dL Urine Glucose (UA) NEG mg/dL Urine Ketones NEG mg/dL Urine Occult Blood NEG Urine Nitrite NEG Urine Bilirubin NEG Urine Urobilinogen LESS THAN 2.0 MG/DL Urine Leukocyte Esterase NEG Urine RBC LESS THAN 1 /hpf Urine WBC LESS THAN 1 /hpf Objective Remarks GENERAL: No acute distress. SKIN: Warm and dry. HEAD: Atraumatic. Normocephalic. EYES: Left eye dressed. ENT: No nasal bleeding or discharge. Mucous membranes pink and moist. NECK: Trachea midline. No JVD. CARDIOVASCULAR: Regular rate and rhythm. RESPIRATORY: No accessory muscle use. Clear to auscultation. Breath sounds equal bilaterally. GASTROINTESTINAL: Abdomen soft, non-tender, nondistended. Hepatic and splenic margins not palpable. MUSCULOSKELETAL: Extremities without clubbing, cyanosis, or edema. No obvious deformities. NEUROLOGICAL: Awake and alert. No obvious cranial nerve deficits. Motor grossly within normal limits. Five out of 5 muscle strength in the arms and legs. Normal speech. PSYCHIATRIC: Appropriate mood and affect; insight and judgment normal. Medications and IVs Current Medications Medications (Trade) Dose Ordered Sig/Zelalem Route Start Time Stop Time Status Last Admin (NS Flush) 2 ml UNSCH PRN IV FLUSH 11/07/17 10:30 11/16/17 21:44 (NS Flush) 2 ml BID IV FLUSH 11/07/17 21:00 11/15/17 20:39 (Tylenol) 650 mg Q4H PRN PO 11/07/17 10:30 (Zofran Inj) 4 mg Q6H PRN IVP 11/07/17 10:30 11/15/17 17:40 (Lovenox Inj) 40 mg Q24H SQ 11/07/17 12:00 Future Hold 11/08/17 15:33 (Narcan Inj) 0.4 mg UNSCH PRN IV PUSH 11/07/17 10:30 ([place]-Colace) 1 tab BID PO 11/07/17 21:00 11/16/17 20:13 (Milk Of Magnesia Liq) 30 ml Q12H PRN PO 11/07/17 10:30 (Senokot) 17.2 mg Q12H PRN PO 11/07/17 10:30 (Dulcolax Supp) 10 mg DAILY PRN RECTAL 11/07/17 10:30 (Lactulose Liq) 30 ml DAILY PRN PO 11/07/17 10:30 (Aspirin) 325 mg DAILY PO 11/08/17 09:00 11/12/17 08:16 (Pill Splitter) 1 ea UNSCH PRN OTHER 11/07/17 11:00 (Ativan) 0.5 mg Q8H PRN PO 11/07/17 12:00 11/17/17 05:00 (Lopressor) 25 mg Q12HR PO 11/07/17 13:00 11/16/17 20:13 (Nitroglycerin 2% Oint) 1 inch Q8HR TOPICAL 11/07/17 14:00 11/17/17 06:20 (Morphine Inj) 2 mg Q4H PRN IV 11/07/17 20:30 11/16/17 21:45 ([place] 5-325 Mg) 1 tab Q4H PRN PO 11/07/17 19:45 11/14/17 13:36 ([place] 10-325 Mg) 1 tab Q4H PRN PO 11/07/17 19:45 11/17/17 04:48 Cefazolin Sodium 500 mg/Sodium Chloride 505 ml @ 0 mls/hr TOLL REPAIRER CENTRAL OFFICE IRRIGATION 11/10/17 10:30 11/17/17 10:29 Cefazolin Sodium/ Dextrose 50 ml @ 150 mls/hr TOLL REPAIRER CENTRAL OFFICE IV 11/10/17 10:30 11/17/17 10:29 (Lopressor) 12.5 mg TOLL REPAIRER CENTRAL OFFICE PO 11/10/17 10:30 11/17/17 10:29 (Hibiclens 4% Top Soln) 1 applic TOLL REPAIRER CENTRAL OFFICE TOPICAL 11/10/17 10:30 11/17/17 10:29 Insulin Human Regular 100 units/ Sodium Chloride 100 ml @ 3 mls/hr TITRATE PRN IV 11/10/17 10:30 11/17/17 10:29 (D50w (Vial) Inj) 50 ml UNSCH PRN IV PUSH 11/10/17 10:30 Papaverine HCl 60 mg/Nitroglycerin 100 mcg/Verapamil HCl 100 mg/Sodium Chloride 100 ml @ 0 mls/hr TOLL REPAIRER CENTRAL OFFICE IRRIGATION 11/10/17 11:00 11/17/17 10:29 (Phenergan) 25 mg Q4H PRN PO 11/14/17 20:15 (Isopto Atropine 1% Opth Soln) 1 drop TID LEFT EYE 11/15/17 09:00 11/16/17 17:30 (Pred Forte 1% Opth Susp) 1 drop QID LEFT EYE 11/14/17 21:00 11/16/17 20:13 (Acular 0.5% Opth Soln) 1 drop QID LEFT EYE 11/14/17 21:00 11/16/17 20:13 (Maxitrol Opth Oint) 1 applic BID LEFT EYE 11/14/17 21:00 11/16/17 20:13 (Protonix) 40 mg DAILY PO 11/15/17 12:00 11/16/17 08:16 (Carafate) 1 gm ACHS PO 11/15/17 12:00 11/16/17 20:13 (Xalatan 0.005% Opth Soln) 1 drop DAILY LEFT EYE 11/15/17 16:00 11/16/17 08:17 Sodium Chloride 1,000 ml @ 100 mls/hr Q10H IV 11/15/17 16:00 11/16/17 20:15 (Trusopt 2% Opth Soln) 1 drop TID LEFT EYE 11/15/17 17:00 11/16/17 17:30 (Alphagan 0.2% Opth Soln) 1 drop TID LEFT EYE 11/15/17 17:00 11/16/17 17:30 Non-Formulary Medication NF:CIPROFLOXACIN 0.3% OPTH [place] 5 ML--1 D... QID LEFT EYE 11/16/17 18:00 11/16/17 20:18 A/P Assessment and Plan 62-year-old male with a history of coronary artery disease and 7 stents placed , history of cardiac arrest 2010, angina, pleurisy was sent by his ophthalmology Dr. Parsons for admission and clearance by cardiology and pulmonology. patient has detached left retina 3-4 weeks ago and needs emergent surgery to repair his retina. Detached left retina Cleared by cardiology for local sedation only, status post repair. awaiting final by Ophthalmology. coronary artery disease was 7 stents placed, history of cardiac arrest 2010, angina S/P cath- 3 V disease continue meds Cardiology ff - on Nitrol paste q 6 Vascular surgery consulted for CABG and recommends waiting and re-eval in 3- 4 weeks. 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 Ativan 0.5 mg every 8 hours p.o. as needed for anxiety. Nausea and vomit, continue PPIs and Zofran, Carafate. Discharge Planning Awaiting for Ophthalmology specialist clearance for discharge. Pramod Warner MD November 17, 2017 08:21
[2017-11-17] MEDS: SODIUM CHLORIDE 0.9% FLUSH 10 ML FLUSH IV FLUSH SCH ×2 (09:00→21:00)
[2017-11-17] MEDS: BRIMONIDINE TARTRATE 0.2% OPHT SOLN 5 ML BTL LEFT EYE SCH ×3 (09:58→17:58)
[2017-11-17] MEDS: LATANOPROST 0.005% OPHT SOLN 2.5 ML BTL LEFT EYE SCH (09:58)
[2017-11-17] MEDS: ATROPINE SULFATE 1% OPHT SOLN 5 ML BTL LEFT EYE SCH ×3 (09:58→17:58)
[2017-11-17] MEDS: DORZOLAMIDE 2% OPTH SOLN 200 DROP/10 ML BTLO LEFT EYE SCH ×3 (09:59→17:58)
[2017-11-17] MEDS: CIPROFLOXACIN OPTH 0.3% LEFT EYE SCH ×4 (09:59→22:00)
[2017-11-17] MEDS: prednisoLONE ACETATE 1% OPHT SUSP 5 ML BTL LEFT EYE SCH ×4 (09:59→22:00)
[2017-11-17] MEDS: NEOMYCIN/POLYMYXIN/DEXAMETHASONE OPTH OINT 3.5 GM TUBE LEFT EYE SCH ×2 (10:00→22:00)
[2017-11-17] MEDS: KETOROLAC TROMETHAMINE 0.5% OPHT SOLN 5 ML BTL LEFT EYE SCH ×4 (10:00→22:00)
[2017-11-17] MEDS: METOPROLOL TARTRATE 25 MG TAB PO SCH ×2 (10:00→22:01)
[2017-11-17] MEDS: DOCUSATE SODIUM 50 MG/SENNA 8.6 MG TAB PO SCH ×2 (10:01→22:01)
[2017-11-17] MEDS: ASPIRIN 325 MG TAB PO SCH (10:01)
[2017-11-17] MEDS: SUCRALFATE 1 GM TAB PO SCH ×4 (10:01→22:00)
[2017-11-17] MEDS: PANTOPRAZOLE SOD 40 MG DELAYED RELEASE TAB PO SCH (10:01)
[2017-11-17 12:00] VITALS: BP 141/72; PULSE 65; RESP 18; TEMP 97.8; O2SAT 99
[2017-11-17] MEDS: SODIUM CHLOR 0.9% 1000 ML INJ 1,000 ML IV SCH ×2 (13:30→23:30)
[2017-11-17 16:00] VITALS: BP 143/72; PULSE 75; RESP 18; TEMP 98.3; O2SAT 99
[2017-11-17 20:00] VITALS: BP 141/77; PULSE 68; RESP 18; TEMP 98.2; O2SAT 98
[2017-11-17] MEDS: SULFAMETHOXAZOLE-TRIMETHOPRIM DS 800-160 MG TAB PO SCH (22:00)
[2017-11-18] VITALS: BP 133/64; PULSE 59; PULSE 61; RESP 18; TEMP 98; O2SAT 99
[2017-11-18 04:00] VITALS: BP 112/57; PULSE 59; RESP 18; TEMP 97.9; O2SAT 96
[2017-11-18] MEDS: ACETAMINOPHEN/HYDROcodone 325 MG/10 MG TAB PO PRN ×2 (04:27→09:45)
[2017-11-18] MEDS: NITROGLYCERIN 2% OINT 1 GM PACKET TOPICAL SCH (06:04)
[2017-11-18 08:00] VITALS: BP 131/86; PULSE 68; RESP 17; TEMP 98.2; O2SAT 97
[2017-11-18] MEDS: LATANOPROST 0.005% OPHT SOLN 2.5 ML BTL LEFT EYE SCH (08:24)
[2017-11-18] MEDS: ATROPINE SULFATE 1% OPHT SOLN 5 ML BTL LEFT EYE SCH (08:25)
[2017-11-18] MEDS: DORZOLAMIDE 2% OPTH SOLN 200 DROP/10 ML BTLO LEFT EYE SCH (08:25)
[2017-11-18] MEDS: NEOMYCIN/POLYMYXIN/DEXAMETHASONE OPTH OINT 3.5 GM TUBE LEFT EYE SCH (08:25)
[2017-11-18] MEDS: BRIMONIDINE TARTRATE 0.2% OPHT SOLN 5 ML BTL LEFT EYE SCH (08:25)
[2017-11-18] MEDS: KETOROLAC TROMETHAMINE 0.5% OPHT SOLN 5 ML BTL LEFT EYE SCH (08:25)
[2017-11-18] MEDS: prednisoLONE ACETATE 1% OPHT SUSP 5 ML BTL LEFT EYE SCH (08:25)
[2017-11-18] MEDS: CIPROFLOXACIN OPTH 0.3% LEFT EYE SCH (08:26)
[2017-11-18] MEDS: SULFAMETHOXAZOLE-TRIMETHOPRIM DS 800-160 MG TAB PO SCH (08:27)
[2017-11-18] MEDS: ASPIRIN 325 MG TAB PO SCH (08:27)
[2017-11-18] MEDS: DOCUSATE SODIUM 50 MG/SENNA 8.6 MG TAB PO SCH (08:27)
[2017-11-18] MEDS: PANTOPRAZOLE SOD 40 MG DELAYED RELEASE TAB PO SCH (08:27)
[2017-11-18] MEDS: METOPROLOL TARTRATE 25 MG TAB PO SCH (08:27)
[2017-11-18] MEDS: SUCRALFATE 1 GM TAB PO SCH ×2 (08:27→12:16)
[2017-11-18] MEDS: SODIUM CHLORIDE 0.9% FLUSH 10 ML FLUSH IV FLUSH SCH (08:28)
--- NOTE | 2017-11-18 08:34 | HHI.PR ---
Subjective Remarks This is a pleasant 62 y/o Male with CAD, status post PCI and seven stents placement, history of Cardiac Arrest 2010, Pleurisy, status post retinal detachment status post Surgical repair. 11/16: Seen in his bedroom, in sitting position, discussed with nurse Miss Flores. no new issues. continue PPIs, Carafate, today will get re evaluation of Intraocular pressure by Ophthalmology, decreased IV fluids. 11/17: Stable awaiting for final recommendations by Ophthalmology, as per patient he states he has his left eye with worsening edema. 11/18: Seen by Ophthalmology specialist Doctor Victor M Parsons and recommended to continue Bactrim I gave it for seven days also will continue all Eye drops, continue home medicines, and will go for evaluation later on today to [facility]. no nausea, vomit or diarrhea. Objective Vital Signs Date Time Temp Pulse Resp B/P (MAP) Pulse Ox O2 Delivery O2 Flow Rate FiO2 11/18/17 04:00 97.9 59 18 112/57 (75) 96 11/18/17 00:00 98.0 59 18 133/64 (87) 99 11/18/17 00:00 61 11/17/17 21:00 Room Air 11/17/17 20:00 98.2 68 18 141/77 (98) 98 11/17/17 16:00 98.3 75 18 143/72 (95) 99 11/17/17 12:00 97.8 65 18 141/72 (95) 99 I/O 11/17/17 11/17/17 11/17/17 11/18/17 11/18/17 11/18/17 07:00 15:00 23:00 07:00 15:00 23:00 Intake Total 838 ml 480 ml Balance 838 ml 480 ml Intake Oral 480 ml IV Total 838 ml # Voids 2 2 # Bowel Movements 0 Imaging Last Impressions Lower Extremity Ultrasound 11/10/17 0000 Signed Impressions: Service Date/Time: Friday, November 10, 2017 18:41 - CONCLUSION: Small caliber saphenous vessels, essentially nonvisualized beyond the mid thigh bilaterally Alejandro Alexandra MD Carotid Artery Ultrasound 11/10/17 0000 Signed Impressions: Service Date/Time: Friday, November 10, 2017 18:03 - CONCLUSION: No evidence of flow-limiting carotid stenosis. Alejandro Alexandra MD Chest X-Ray 11/07/17 1005 Signed Impressions: Service Date/Time: Tuesday, November 07, 2017 10:14 - CONCLUSION: 1. Mild basilar atelectasis. Tortuous aorta. No effusion or pneumothorax. Deyvi Brown MD Procedures Left Eye retinal detachment repair. Other Results Laboratory Tests Test 11/07/17 10:13 11/08/17 03:16 11/10/17 05:47 11/10/17 09:46 Prothrombin Time 10.1 SEC Prothromb Time International Ratio 1.0 RATIO Activated Partial Thromboplast Time 22.9 SEC Blood Urea Nitrogen 14 MG/DL 16 MG/DL Creatinine 0.81 MG/DL 0.80 MG/DL Random Glucose 87 MG/DL 87 MG/DL Total Protein 6.8 GM/DL Albumin 3.6 GM/DL Calcium Level 8.4 MG/DL 8.5 MG/DL Alkaline Phosphatase 70 U/L Aspartate Amino Transf (AST/SGOT) 13 U/L Alanine Aminotransferase (ALT/SGPT) 19 U/L Total Bilirubin 0.3 MG/DL Sodium Level 143 MEQ/L 141 MEQ/L Potassium Level 3.6 MEQ/L 4.1 MEQ/L Chloride Level 107 MEQ/L 106 MEQ/L Carbon Dioxide Level 27.3 MEQ/L 25.6 MEQ/L White Blood Count 6.1 TH/MM3 Red Blood Count 5.22 MIL/MM3 Hemoglobin 15.3 GM/DL Hematocrit 43.6 % Mean Corpuscular Volume 83.6 FL Mean Corpuscular Hemoglobin 29.3 PG Mean Corpuscular Hemoglobin Concent 35.0 % Red Cell Distribution Width 14.5 % Platelet Count 98 TH/MM3 Mean Platelet Volume 8.8 FL Neutrophils (%) (Auto) 61.8 % Lymphocytes (%) (Auto) 25.1 % Monocytes (%) (Auto) 10.7 % Eosinophils (%) (Auto) 2.2 % Basophils (%) (Auto) 0.2 % Neutrophils # (Auto) 3.8 TH/MM3 Lymphocytes # (Auto) 1.5 TH/MM3 Monocytes # (Auto) 0.6 TH/MM3 Eosinophils # (Auto) 0.1 TH/MM3 Basophils # (Auto) 0.0 TH/MM3 CBC Comment AUTO DIFF Differential Total Cells Counted 100 Neutrophils % (Manual) 58 % Band Neutrophils % 2 % Lymphocytes % 25 % Monocytes % 11 % Eosinophils % 4 % Neutrophils # (Manual) 3.7 TH/MM3 Differential Comment FINAL DIFF MANUAL Platelet Estimate LOW Platelet Morphology Comment NORMAL Red Cell Morphology Comment NORMAL Anion Gap 9 MEQ/L Estimat Glomerular Filtration Rate 98 ML/MIN Hemoglobin A1c 5.6 % Troponin I LESS THAN 0.02 NG/ML Triglycerides Level 141 MG/DL Cholesterol Level 144 MG/DL LDL Cholesterol 80 MG/DL HDL Cholesterol 35.7 MG/DL Cholesterol/HDL Ratio 4.03 RATIO Urine Color LIGHT-YELLOW Urine Turbidity CLEAR Urine pH 5.5 Urine Specific [place] 1.042 Urine Protein NEG mg/dL Urine Glucose (UA) NEG mg/dL Urine Ketones NEG mg/dL Urine Occult Blood NEG Urine Nitrite NEG Urine Bilirubin NEG Urine Urobilinogen LESS THAN 2.0 MG/DL Urine Leukocyte Esterase NEG Urine RBC LESS THAN 1 /hpf Urine WBC LESS THAN 1 /hpf Objective Remarks GENERAL: No acute distress. SKIN: Warm and dry. HEAD: Atraumatic. Normocephalic. EYES: Left eye dressed. ENT: No nasal bleeding or discharge. Mucous membranes pink and moist. NECK: Trachea midline. No JVD. CARDIOVASCULAR: Regular rate and rhythm. RESPIRATORY: No accessory muscle use. Clear to auscultation. Breath sounds equal bilaterally. GASTROINTESTINAL: Abdomen soft, non-tender, nondistended. Hepatic and splenic margins not palpable. MUSCULOSKELETAL: Extremities without clubbing, cyanosis, or edema. No obvious deformities. NEUROLOGICAL: Awake and alert. No obvious cranial nerve deficits. Motor grossly within normal limits. Five out of 5 muscle strength in the arms and legs. Normal speech. PSYCHIATRIC: Appropriate mood and affect; insight and judgment normal. Medications and IVs Current Medications Medications (Trade) Dose Ordered Sig/Zelalem Route Start Time Stop Time Status Last Admin (NS Flush) 2 ml UNSCH PRN IV FLUSH 11/07/17 10:30 11/16/17 21:44 (NS Flush) 2 ml BID IV FLUSH 11/07/17 21:00 11/18/17 08:28 (Tylenol) 650 mg Q4H PRN PO 11/07/17 10:30 (Zofran Inj) 4 mg Q6H PRN IVP 11/07/17 10:30 11/15/17 17:40 (Lovenox Inj) 40 mg Q24H SQ 11/07/17 12:00 Future Hold 11/08/17 15:33 (Narcan Inj) 0.4 mg UNSCH PRN IV PUSH 11/07/17 10:30 (Oriana-Colace) 1 tab BID PO 11/07/17 21:00 11/18/17 08:27 (Milk Of Magnesia Liq) 30 ml Q12H PRN PO 11/07/17 10:30 (Senokot) 17.2 mg Q12H PRN PO 11/07/17 10:30 (Dulcolax Supp) 10 mg DAILY PRN RECTAL 11/07/17 10:30 (Lactulose Liq) 30 ml DAILY PRN PO 11/07/17 10:30 (Aspirin) 325 mg DAILY PO 11/08/17 09:00 11/18/17 08:27 (Pill Splitter) 1 ea UNSCH PRN OTHER 11/07/17 11:00 (Ativan) 0.5 mg Q8H PRN PO 11/07/17 12:00 11/17/17 05:00 (Lopressor) 25 mg Q12HR PO 11/07/17 13:00 11/18/17 08:27 (Nitroglycerin 2% Oint) 1 inch Q8HR TOPICAL 11/07/17 14:00 11/18/17 06:04 (Morphine Inj) 2 mg Q4H PRN IV 11/07/17 20:30 11/16/17 21:45 (Dime Box 5-325 Mg) 1 tab Q4H PRN PO 11/07/17 19:45 11/14/17 13:36 (Dime Box 10-325 Mg) 1 tab Q4H PRN PO 11/07/17 19:45 11/18/17 04:27 (D50w (Vial) Inj) 50 ml UNSCH PRN IV PUSH 11/10/17 10:30 (Phenergan) 25 mg Q4H PRN PO 11/14/17 20:15 (Isopto Atropine 1% Opth Soln) 1 drop TID LEFT EYE 11/15/17 09:00 11/18/17 08:25 (Pred Forte 1% Opth Susp) 1 drop QID LEFT EYE 11/14/17 21:00 11/18/17 08:25 (Acular 0.5% Opth Soln) 1 drop QID LEFT EYE 11/14/17 21:00 11/18/17 08:25 (Maxitrol Opth Oint) 1 applic BID LEFT EYE 11/14/17 21:00 11/18/17 08:25 (Protonix) 40 mg DAILY PO 11/15/17 12:00 11/18/17 08:27 (Carafate) 1 gm ACHS PO 11/15/17 12:00 11/18/17 08:27 (Xalatan 0.005% Opth Soln) 1 drop DAILY LEFT EYE 11/15/17 16:00 11/18/17 08:24 (Trusopt 2% Opth Soln) 1 drop TID LEFT EYE 11/15/17 17:00 11/18/17 08:25 (Alphagan 0.2% Opth Soln) 1 drop TID LEFT EYE 11/15/17 17:00 11/18/17 08:25 Non-Formulary Medication NF:CIPROFLOXACIN 0.3% OPTH IRAIDA 5 ML--1 D... QID LEFT EYE 11/16/17 18:00 11/18/17 08:26 (Bactrim Ds 800-160 Mg) 1 tab BID PO 11/17/17 21:00 11/18/17 08:27 A/P Assessment and Plan 62-year-old male with a history of coronary artery disease and 7 stents placed , history of cardiac arrest 2010, angina, pleurisy was sent by his ophthalmology Dr. Parsons for admission and clearance by cardiology and pulmonology. patient has detached left retina 3-4 weeks ago and needs emergent surgery to repair his retina. Detached left retina Cleared by cardiology for local sedation only, status post repair. Doctor Victor M Parsons Ophthalmology specialist recommended to continue all eye drops, also Bactrim I gave it for seven days, and will go for evaluation later on today to [facility]. coronary artery disease was 7 stents placed, history of cardiac arrest 2010, angina S/P cath- 3 V disease continue meds Cardiology ff - on Nitrol paste q 6 Vascular surgery consulted for CABG and recommends waiting and re-eval in 3- 4 weeks. 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 Improved. Nausea and vomit, continue PPIs and Zofran, Carafate. Discharge Planning Discharge home today. Pramod Warner MD November 18, 2017 08:34
[2017-11-18] MEDS ORDERED: SOD PHOSPHATE/SOD BIPHOSPHATE (ADULT) ENEMA 133ML RECTAL PRN (08:45)
[2017-11-18] MEDS ORDERED: LACTULOSE SYRUP 20 GM/30 ML CUP PO ONE (08:45)
[2017-11-18] MEDS ORDERED: GLYCERIN ADULT 2 GM SUPP RECTAL ONE (08:45)
[2017-11-18] MEDS ORDERED: PRED1SUS6 LEFT EYE (09:43)
[2017-11-18] MEDS ORDERED: METO25TA3 PO (09:43)
[2017-11-18] MEDS ORDERED: CARA1TAB6 PO (09:43)
[2017-11-18] MEDS ORDERED: LATA.005%O LEFT EYE (09:43)
[2017-11-18] MEDS ORDERED: SULF1TAB23 PO (09:43)
[2017-11-18] MEDS ORDERED: POLYMYXIN B LEFT EYE (09:43)
[2017-11-18] MEDS ORDERED: DEXAMETHASONE LEFT EYE (09:43)
[2017-11-18] MEDS ORDERED: Dorzolamide 2% Opth Soln LEFT EYE (09:43)
[2017-11-18] MEDS ORDERED: ATROPINE 1% LEFT EYE (09:43)
[2017-11-18] MEDS ORDERED: PANT40TA3 PO (09:43)
[2017-11-18] MEDS ORDERED: NEOMYCIN LEFT EYE (09:43)
[2017-11-18] MEDS ORDERED: OPTH LEFT EYE ×2 (09:43)
[2017-11-18] MEDS ORDERED: Brimonidine 0.2% Opth Soln LEFT EYE (09:43)
[2017-11-18] MEDS ORDERED: KETOROLAC 0.5% LEFT EYE (09:43)
--- NOTE | 2017-11-18 10:40 | HHI.DS ---
Discharge Summary Admission Date November 07, 2017 at 11:04 Discharge Date: November 18, 2017 Admitting Diagnosis left retinal detachment, cad, pleurysy, (1) Detached retina, left ICD Code: H33.22 - Serous retinal detachment, left eye Diagnosis: Principal Status: Acute (2) Coronary artery disease ICD Code: I25.10 - Atherosclerotic heart disease of [place] coronary artery without angina pectoris Diagnosis: Principal Status: Acute (3) Unstable angina pectoris ICD Code: I20.0 - Unstable angina Diagnosis: Principal (4) History of pleurisy ICD Code: Z87.09 - Personal history of other diseases of the respiratory system Diagnosis: Principal Status: Acute Procedures 11/10- cardiac cath 1. Unremarkable hemodynamics. 2. Mildly impaired left ventricular function. 3. Severe 3-vessel multivessel disease. Left retinal detachment repair. Brief History - From Admission The patient is a 62-year-old male with past medical history of coronary artery disease cardiac cath was 7 stents per patient, history of cardiac arrest in 2010 , pleurisy. Patient presented to the emergency room the request of his ophthalmology Dr. Parsons and also anesthesiologist who recommended admission and cardiology and pulmonology clearance for retinal detachment surgery. Patient has detached left retina that happened 3-4 weeks ago. Patient needs emergent surgery to repair his retina. Patient says he has stable angina and he takes daily nitroglycerin. At this time he does not appear in distress. He is however complaining of brief intermittent left eye pain, does not have any pain at this time. He denies any chest pain or pressure. No lightheadedness, palpitations, shortness of breath, diaphoresis, nausea. He is saturating well on room air. There is no cough. No fever, chills, no nausea or vomiting. Imaging Last Impressions Lower Extremity Ultrasound 11/10/17 0000 Signed Impressions: Service Date/Time: Friday, November 10, 2017 18:41 - CONCLUSION: Small caliber saphenous vessels, essentially nonvisualized beyond the mid thigh bilaterally Alejandro Alexandra MD Carotid Artery Ultrasound 11/10/17 0000 Signed Impressions: Service Date/Time: Friday, November 10, 2017 18:03 - CONCLUSION: No evidence of flow-limiting carotid stenosis. Alejandro Alexandra MD Chest X-Ray 11/07/17 1005 Signed Impressions: Service Date/Time: Tuesday, November 07, 2017 10:14 - CONCLUSION: 1. Mild basilar atelectasis. Tortuous aorta. No effusion or pneumothorax. Deyvi Brown MD PE at Discharge GENERAL: No acute distress. SKIN: Warm and dry. HEAD: Atraumatic. Normocephalic. EYES: Left eye dressed. ENT: No nasal bleeding or discharge. Mucous membranes pink and moist. NECK: Trachea midline. No JVD. CARDIOVASCULAR: Regular rate and rhythm. RESPIRATORY: No accessory muscle use. Clear to auscultation. Breath sounds equal bilaterally. GASTROINTESTINAL: Abdomen soft, non-tender, nondistended. Hepatic and splenic margins not palpable. MUSCULOSKELETAL: Extremities without clubbing, cyanosis, or edema. No obvious deformities. NEUROLOGICAL: Awake and alert. No obvious cranial nerve deficits. Motor grossly within normal limits. Five out of 5 muscle strength in the arms and legs. Normal speech. PSYCHIATRIC: Appropriate mood and affect; insight and judgment normal. Hospital Course This is a pleasant 62 y/o Male with CAD, status post PCI and seven stents placement, history of Cardiac Arrest 2010, Pleurisy, status post retinal detachment status post Surgical repair. 11/16: Seen in his bedroom, in sitting position, discussed with nurse Miss Flores. no new issues. continue PPIs, Carafate, today will get re evaluation of Intraocular pressure by Ophthalmology, decreased IV fluids. 11/17: Stable awaiting for final recommendations by Ophthalmology, as per patient he states he has his left eye with worsening edema. 11/18: Seen by Ophthalmology specialist Doctor Victor M Parsons and recommended to continue Bactrim I gave it for seven days also will continue all Eye drops, continue home medicines, and will go for evaluation later on today to [facility]. no nausea, vomit or diarrhea. Assessment and Plan 62-year-old male with a history of coronary artery disease and 7 stents placed , history of cardiac arrest 2010, angina, pleurisy was sent by his ophthalmology Dr. Parsons for admission and clearance by cardiology and pulmonology. patient has detached left retina 3-4 weeks ago and needs emergent surgery to repair his retina. Detached left retina Cleared by cardiology for local sedation only, status post repair. Doctor Victor M Parsons Ophthalmology specialist recommended to continue all eye drops, also Bactrim I gave it for seven days, and will go for evaluation later on today to [facility]. coronary artery disease was 7 stents placed, history of cardiac arrest 2010, angina S/P cath- 3 V disease continue meds Cardiology ff - on Nitrol paste q 6 Vascular surgery consulted for CABG and recommends waiting and re-eval in 3- 4 weeks. 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 Improved. Nausea and vomit, continue PPIs and Zofran, Carafate. Constipation given lactulose and Glycerine suppositories and await for BM previous to discharge home. Discharge Planning Discharge home today. Pt Condition on Discharge: Good Discharge Disposition: Discharge Home Discharge Time: > 30 minutes Discharge Instructions DIET: Follow Instructions for: As Tolerated, No Restrictions Activities you can perform: Regular-No Restrictions Pramod Warner MD November 18, 2017 10:40
--- NOTE | 2017-12-01 15:07 | MP ---
cc: Victor M Parsons MD DATE OF OPERATION: 11/07/2017 DATE OF : 1955 DATE OF SURGERY: 11/07/2017. 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 POSTOPERATIVE DIAGNOSIS: Macula-off retinal detachment of the left eye. PROCEDURE: Retinal detachment repair via scleral buckle, cryotherapy therapy, suprachoroidal drainage, and intraocular gas injection in the left eye. MODE OF ANESTHESIA: General. AMOUNT OF BLOOD LOSS DURING THE CASE: Less than 5 mL. OPERATIVE REPORT: The patient was evaluated in the preoperative holding area. Informed consent was secured. The operative left eye was identified and marked. The patient was then taken to the operating room, and placed on the operating table in the supine position. The operative eye was identified and agreed upon by the operating room staff in a "timeout". The patient was then prepped and draped in the usual sterile manner for retinal surgery. An eyelid speculum was then placed on the operative left eye. Attention was then directed to the limbus where a 360-degree limbal peritomy was fashioned. Attention was then directed to the isolation of the recti muscles, which were sequentially (superior, medial, inferior, and then lateral) identified utilizing muscle hooks. When it was clear that the muscles were completely isolated, a serrated muscle hook with a 4-0 silk suture was passed under the muscle and knotted in place for tractional control of the globe. The same was accomplished for all 4 of the aforementioned recti muscles. The traction sutures remained in place throughout the entire procedure. The scleral bed was then inspected and noted to be in good condition. The retina was then examined with an indirect ophthalmoscope and a 30 diopter lens and the previously noted retinal detachment was appreciated. A complete macula off retinal detachment was noted with an inferior retinal break that included a break/dialysis breech of the inferior nasal and inferior retina. The retina revealed apparent and limited mobility. No additional retinal breaks were detected with deep scleral depression. At this point, further consideration was given to the retinal buckling element and the operating room options limited choices to a 507 sponge with the placement of the element spanning from the lateral rectus muscle to the medial rectus muscle covering approximately 190 degrees of the inferior globe. Drainage: Removal of suprachoroidal/subretinal fluid was accomplished with a careful cut down of the sclera with a [place] blade in the inferior temporal scleral bed, a selected site to lay beneath the buckling element, avoiding approximation to the obvious retinal defects. The initiation of drainage was accomplished by piercing of the exposed knuckle of choroid from the aforementioned scleral cutdown with a sharp diathermy needle. While drainage was taking place, counter-pressure was placed on the eye to prevent "over softening" of the eye. Gas: A nonexpansile concentration of C3F8 gas was drawn up in a 60 mL syringe with a Millipore filter. This was injected under indirect ophthalmoscope visualization, measured 4.4 mm from the limbus at the superior temporal aspect of the globe. The buckling element: The buckling elements, which were previously soaking in an Ancef antibiotic solution, was then preplaced. Temporary ties with 5-0 [place] sutures x4 were put in place and the 507 sponge buckling element was noted to cover the preplanned 190 degree arc of the inferior globe. Cryotherapy was then applied to the inferior nasal-inferior temporal peripheral region of the choroid/retina consistent with the most obvious areas of the retinal defects previously noted. The buckle position relative to the retinal defects and the subretinal fluid was then reexamined and the buckle was determined under indirect ophthalmoscope evaluation to be in good position. The sutures were thereby tightened and tied. The subconjunctival space/scleral bed was copiously rinsed with Ancef antibiotic solution. Traction sutures were then removed from the recti muscles. The extraocular muscles were repositioned and the conjunctiva was about to its normal anatomical position. The conjunctiva was then closed with 7-0 absorbable chromic gut sutures. The conjunctiva was then injected inferiorly with Ancef. Decadron was not injected due to the patient reported ALLERGY TO STEROIDS. The retina was again inspected at this point with the indirect ophthalmoscope and a 20 diopter lens and a high posterior inferior buckling effect was appreciated and the retina was noted to be on the buckle and detached. A gas bubble was noted to be in the posterior chamber. The retina was noted to be attached and minimal subretinal fluid was appreciated at this time. A Schiotz tonometer was utilized to measure the intraocular pressure that was noted to be 16 mmHg with a 10 mg weight. The eye was patched with TobraDex ointment and a shield was placed on the eye. Head positioning (face down) for the postoperative period was discussed for optimal retinal tamponade with the staff. The patient was awakened from general anesthesia without difficulty and the patient was taken to the postanesthesia care area in good condition. MD ANAHI Kirkland/DEEPTI , 02:32 PM , 03:06 PM
== END 2017-11-18 12:48 | disposition home or self-care (01) | DRG 115 ==
LOC: NEPE 09:32 → NEDA 11:04 → N07A 12:23
PROVIDERS: ADMIT Internal Medicine; ATTEND Internal Medicine
PROC: 4A023N7 Measurement of Cardiac Sampling and Pressure, Left Heart, Percutaneous Approach (ICD-10-PCS; 2017-11-10)
PROC: B2111ZZ Fluoroscopy of Multiple Coronary Arteries using Low Osmolar Contrast (ICD-10-PCS; 2017-11-10)
PROC: B2151ZZ Fluoroscopy of Left Heart using Low Osmolar Contrast (ICD-10-PCS; 2017-11-10)
PROC: 3E0C3GC Introduction of Other Therapeutic Substance into Eye, Percutaneous Approach (ICD-10-PCS; 2017-11-14)
PROC: 085F3ZZ Destruction of Left Retina, Percutaneous Approach (ICD-10-PCS; 2017-11-14)
PROC: 08U13JZ Supplement of Left Eye with Synthetic Substitute, Percutaneous Approach (ICD-10-PCS; principal; 2017-11-14 15:45)
DX: H33.04 Retinal detachment with retinal dialysis (principal); Z86.74 Personal history of sudden cardiac arrest; H33.002 Unspecified retinal detachment with retinal break, left eye; I25.2 Old myocardial infarction; I25.118 Atherosclerotic heart disease of native coronary artery with other forms of angina pectoris; R09.1 Pleurisy; Z95.5 Presence of coronary angioplasty implant and graft; E78.5 Hyperlipidemia, unspecified; I44.7 Left bundle-branch block, unspecified; Z87.891 Personal history of nicotine dependence; Z79.891 Long term (current) use of opiate analgesic; I07.1 Rheumatic tricuspid insufficiency; Z77.098 Contact with and (suspected) exposure to other hazardous, chiefly nonmedicinal, chemicals; R11.2 Nausea with vomiting, unspecified
CPT/HCPCS: 71045; 80048; 80053; 80061; 81001; 83036; 84484; 85007; 85025; 85027; 85610; 85730; 86850; 86900; 86901; 87086; 93005; 93306; 93458; 93880; 93970; 93998; 94010; 99152; 99153; 99285; C1760; C1769; C1893; G0269; J0171; J0690; J1100; J1170; J1644; J1650; J2250; J2270; J2370; J2405; J3010; J3301; J7030; Q9967